=== PATIENT | male | born 1950 | race Caucasian/White ===

== ENCOUNTER → 2017-01-17 09:00 | Outpatient (CLI) | payer MEDICARE, BC ==
[2016-01-24 12:08] VITALS: BMI 33.0
[~2017-01-17 09:00] MED LIST: BAYER CHEWABLE81 MG PO; COZAAR100 MG PO; FLUTICASONE PRO16 GM NASAL; IBUPROFEN800 MG PO; OMEPRAZOLE20 M1 PO; TYLENOL W/CODEI1 TAB PO; ZOCOR40 MG PO
== END | disposition home or self-care (01) ==
LOC: D.CT 09:00
DX: R06.02 Shortness of breath (principal); R91.8 Other nonspecific abnormal finding of lung field

== ENCOUNTER → 2017-07-29 12:26 | Outpatient (CLI) | payer MEDICARE, BC ==
[2016-01-24 12:08] VITALS: BMI 33.0
[2017-07-29 13:55] LABS: BASOPHILS 1.1 % (0-2); EOSINOPHILS 3.5 % (0-7); HEMOGLOBIN 15.5 g/dL (13.5-17.5); IMMATURE GRANULOCYTES 0.5 % (0-5); LYMPHOCYTES 25.8 % (15-50); MCH 33.8 pg (26.0-34.0); MCHC 35.2 g/dL (31.0-37.0); MCV 95.9 fL (80.0-100.0); MEAN PLATELET VOLUME 8.7 fL (7.4-10.4); MONOCYTES 9.3 % (2-11); NEUTROPHILS 59.8 % (40-80); PLATELET COUNT 210 10x3/uL (130-400); RBC 4.59 10x6/uL (4.20-6.10); RDW 12.6 % (11.5-14.5); WBC 8.1 10x3/uL (4.8-10.8)
[2017-07-29 14:14] LABS: ALBUMIN 3.9 g/dL (3.4-5.0); ALKALINE PHOSPHATASE 132 U/L (46-116); ALT (SGPT) 49 U/L (10-68); BILIRUBIN - TOTAL 0.77 mg/dL (0.2-1.3); CALC OSMOLALITY 273 mosm/kg (275-300); CALCIUM 9.4 mg/dL (8.5-10.1); CARBON DIOXIDE 25.8 mmol/L (21.0-32.0); CHLORIDE - SERUM 101 mmol/L (98-107); GLUCOSE 110 mg/dL (74-106); SODIUM 136 mmol/L (136-145); UREA NITROGEN 14 mg/dL (7-18); eGFR NON AFRICAN AMERICAN 79 mL/min (90-120)
[2017-07-30 11:19] LABS: IMMUNOGLOBULIN A 279 mg/dL (61-437)
[2017-07-30 13:15] LABS: ANA REFLEX - DIRECT Negative (Negative)
== END | disposition home or self-care (01) ==
LOC: D.RT 12:26
PROVIDERS: Internal Medicine Pulmonary Disease
DX: J44.9 Chronic obstructive pulmonary disease, unspecified (principal)

== ENCOUNTER → 2017-11-18 10:17 | Outpatient (CLI) | payer MEDICARE, BC ==
[2016-01-24 12:08] VITALS: BMI 33.0
[2017-11-19 21:08] LABS: IGG SUBCLASS 1 450 mg/dL (248-810); IGG SUBCLASS 2 487 mg/dL (130-555); IGG SUBCLASS 3 11 mg/dL (15-102); IGG SUBCLASS 4 88 mg/dL (2-96); IMMUNOGLOBULIN G 985 mg/dL (700-1600)
== END | disposition home or self-care (01) ==
LOC: D.LAB 10:15
PROVIDERS: Internal Medicine Pulmonary Disease
DX: J42 Unspecified chronic bronchitis (principal)

== ENCOUNTER 2018-07-09 08:40 | Day surgery (SDC) | payer MEDICARE, BC ==
[~2018-07-09] VITALS: Ht 177.8 cm; Wt 97.7 kg
[2018-07-09 09:16] LABS: HEMATOCRIT 43.4 % (42.0-54.0); MCH 32.1 pg (26.0-34.0); MCHC 34.6 g/dL (31.0-37.0); MCV 92.9 fL (80.0-100.0); MEAN PLATELET VOLUME 9.1 fL (7.4-10.4); RBC 4.67 10x6/uL (4.20-6.10); RDW 13.7 % (11.5-14.5); WBC 7.9 10x3/uL (4.8-10.8)
[2018-07-09 09:26] LABS: ALBUMIN 3.3 g/dL (3.4-5.0); BILIRUBIN - DIRECT 0.26 mg/dL (0.00-0.30); BILIRUBIN - INDIRECT 1.06 mg/dL (0.00-1.00); BILIRUBIN - TOTAL 1.32 mg/dL (0.2-1.3); PROTEIN - SERUM 8.3 g/dL (6.4-8.2)
[2018-07-09 09:28] VITALS: BP 141/84; Ht 177.8 cm; Wt 97.7 kg
--- NOTE | 2018-07-14 06:53 | OP ---
PATIENT NAME: TOMASZ SIDDIQI JR MEDICAL RECORD: [id number] :50 [facility]ATION:[facility] [place] ADMISSION DATE: SURGEON: MUSTAPHA MONIQUE DO DATE OF OPERATION: 07/09/2018 PROCEDURE: Colonoscopy with polypectomy. INDICATIONS FOR PROCEDURE: Stool DNA based colorectal cancer screening positive testing. SCOPE: Access Information Management video pediatric colonoscope. MEDICATIONS: Propofol 700 mg IV per anesthesia. WITHDRAWAL TIME: 20 minutes. ESTIMATED BLOOD LOSS: Minimal. COMPLICATIONS: None. FINDINGS: Informed consent was given. The patient was made comfortable with the above medication. After reaching an adequate level of sedation by slow IV push, the patient was placed on his left side. A digital rectal examination was performed and was normal. The endoscope was then advanced under direct visualization through the rectum to the cecum, confirmed by the presence of the appendiceal orifice and ileocecal valve. The endoscope was slowly withdrawn and the mucosa was carefully examined. The quality of the prep was good. There were multiple polyps visualized on today's examination. Two were located in the ascending colon. They were benign appearing and sessile and ranged in size from 3-5 mm in diameter. They were both removed using a hot snare. In the transverse colon, there were four separate polyps, which were benign-appearing and sessile. They ranged in size from 3-5 mm in diameter. They were removed using hot snare. In the descending colon, there were 3 separate polyps, which were benign appearing and sessile and ranged in size from 2-4 mm in diameter. They were removed using hot forceps. In the rectum, there were 3 separate polyps, which were benign appearing and sessile and also flat. The largest of the 3 and the flattest of the 3 was removed using endoscopic mucosal resection technique with injection of a saline pillow, followed by snare polypectomy. The remaining 2 polyps were removed using a hot snare alone. Retroflexion was performed in the rectum with visualization of a normal-appearing rectal wall. There was evidence of very mild diverticulosis involving the sigmoid colon. The endoscope was withdrawn from the patient. The patient tolerated the procedure well, and there were no complications. IMPRESSION: 1. Multiple polyps as described above, removed using a combination of a hot snare, hot forceps, and EMR technique. 2. Mild diverticulosis of the sigmoid colon. PLAN AND RECOMMENDATIONS: 1. Discharge home when recovery parameters are met. 2. Follow up biopsy specimen results. 3. High-fiber diet. 4. Continue current medications. 5. Recall colonoscopy in 2-3 years for surveillance based on a personal history OPERATIVE REPORT [id number] TOMASZ SIDDIQI JR of polyps. TRANSINT:[id number] Voice Confirmation ID: [id number] DOCUMENT ID: [id number] MUSTAPHA MONIQUE DO at 0653 CC: [id number] DICTATION DATE: 07/09/18 1141 ROOF DESIGNER: 07/09/18 1325 [facility] 07/09/18 [place] [address] [place] [address]
== END 2018-07-09 12:28 | disposition home or self-care (01) ==
LOC: D.OPS 08:40
PROVIDERS: Anesthesiology; Internal Medicine Gastroenterology
DX: K63.5 Polyp of colon (principal); K57.30 Diverticulosis of large intestine without perforation or abscess without bleeding; Z01.812 Encounter for preprocedural laboratory examination

== ENCOUNTER → 2018-08-08 08:28 | Outpatient (CLI) | payer MEDICARE, BC ==
[2018-07-09 09:28] VITALS: BMI 30.9
[2018-08-09 11:10] LABS: HEPATITIS C ANTIBODY <0.1 (0.0-0.9)
== END | disposition home or self-care (01) ==
LOC: D.RT 08:00 → D.LAB 08:00 → D.RT 08:28
PROVIDERS: ATTEND Internal Medicine Pulmonary Disease
DX: J84.112 Idiopathic pulmonary fibrosis (principal)

== ENCOUNTER → 2018-09-09 10:24 | Outpatient (CLI) | payer MEDICARE, BC ==
[2018-07-09 09:28] VITALS: BMI 30.9
[2018-09-09 12:53] LABS: ALBUMIN 3.3 g/dL (3.4-5.0); BILIRUBIN - DIRECT 0.26 mg/dL (0.00-0.30); BILIRUBIN - INDIRECT 0.85 mg/dL (0.00-1.00); BILIRUBIN - TOTAL 1.11 mg/dL (0.2-1.3); PROTEIN - SERUM 7.9 g/dL (6.4-8.2)
== END | disposition home or self-care (01) ==
LOC: D.LABREF 10:24
PROVIDERS: ATTEND Internal Medicine Pulmonary Disease
DX: J84.112 Idiopathic pulmonary fibrosis (principal)

== ENCOUNTER → 2018-10-01 19:05 | Outpatient (CLI) | payer MEDICARE, BC ==
[2018-07-09 09:28] VITALS: BMI 30.9
[2018-10-01 21:01] LABS: ALBUMIN 3.6 g/dL (3.4-5.0); BILIRUBIN - DIRECT 0.25 mg/dL (0.00-0.30); BILIRUBIN - INDIRECT 1.01 mg/dL (0.00-1.00); BILIRUBIN - TOTAL 1.26 mg/dL (0.2-1.3); PROTEIN - SERUM 8.2 g/dL (6.4-8.2)
== END | disposition home or self-care (01) ==
LOC: D.LABREF 19:05
PROVIDERS: ATTEND Internal Medicine Pulmonary Disease
DX: J84.112 Idiopathic pulmonary fibrosis (principal)

== ENCOUNTER → 2019-02-17 09:46 | Outpatient (CLI) | payer MEDICARE, BC ==
[2018-07-09 09:28] VITALS: BMI 30.9
--- NOTE | 2019-02-20 12:52 | EC ---
PATIENT:TOMASZ SIDDIQI JR DATE OF SERVICE: 02/17/19 SEX: M MEDICAL RECORD: [id number] DATE OF : [birth year] [facility] AGE OF PATIENT: 69 ADMISSION DATE: 02/17/19 REFERRING PHYSICIAN: INTERPRETING PHYSICIAN: MONICA ZHANG MD ECHOCARDIOGRAM REPORT ECHO CHARGES 4 ECHO COMPLETE Date: 02/17/19 CLINICAL DIAGNOSIS: H/O HTN/CAD ECHOCARDIOGRAPHIC MEASUREMENTS (adult normal given) AC root (d.<3.7cm) 3.9 cm LV Septum d (<1.2 cm> 1.1 cm Valve Excursion 2.5 cm LV Septum (systole) 1.4 cm Left Atria (s.<4.0cm> 4.6 cm LVPW d(<1.2cm) 1.1 cm RV (d.<2.3cm) 2.9 cm LVPW (sytole) 1.6 cm LV diastole(<5.6CM) 5.8 cm MV E-F(>70mm/sec) cm LV systole 3.8 cm LVOT Diameter 2.2 cm MV exc.(>10mm) cm Est.ejection fraction (50-75%) % DOPPLER: LVIT cm/sec A 82.0 cm/sec E 52.0 cm/sec LA cm/sec RVSP 29.3 mmHg LVOT 93.0 cm/sec AOP1/2T m/s Asc. Ao 133 cm/sec RVOT 61.0 cm/sec RA cm/sec PA 83.0 cm/sec AV Gradient Peak 7.1 mmHg AV Mean 3.5 mmHg AV Area 2.6 cm MV Gradient Peak 4.7 mmHg MV Mean 1.3 mmHg MV Area cm COMMENTS: OP - HC Cdl B Driver: 1 SHIV NOE Cotton Puller: 3 Dr. Pinzon TAPE# PACS Pericardial Effusion N DATE OF SERVICE: Adequate 2-D echo, color-flow and spectral Doppler, and M-mode. No LVH. LV internal dimensions are normal. Wall motion is normal. EF is greater than or equal to 55%. Aortic valve is tricuspid. No evidence of stenosis by Doppler interrogation. Left atrium is mildly dilated at 4.6 cm. Mitral valve shows no prolapse. Ubeni-rw-fzof MR. Right-sided chambers are grossly normal. Mild TR. ECHOCARDIOGRAM REPORT [id number] TOMASZ SIDDIQI TRANSINT:[id number] Voice Confirmation ID: [id number] DOCUMENT ID: [id number] MONICA ZHANG MD at 1252 CC: [id number] DICTATION DATE: 02/19/19 1349 ANCILLARY SERVICES MANAGER THERAPY: 02/19/19 1513 [facility] CLI 02/17/19 [place] [id number] [place] [id number]
== END | disposition home or self-care (01) ==
LOC: D.HCCECHO 09:46 → D.HCCARDIO 10:00
PROVIDERS: ATTEND Internal Medicine Interventional Cardiology
DX: J98.4 Other disorders of lung (principal); J84.112 Idiopathic pulmonary fibrosis

== ENCOUNTER → 2019-04-28 11:02 | Outpatient (CLI) | payer MEDICARE, BC ==
[2018-07-09 09:28] VITALS: BMI 30.9
[2019-04-28 11:54] LABS: ALBUMIN 3.3 g/dL (3.4-5.0); BILIRUBIN - DIRECT 0.24 mg/dL (0.00-0.30); BILIRUBIN - INDIRECT 0.63 mg/dL (0.00-1.00); BILIRUBIN - TOTAL 0.87 mg/dL (0.2-1.3); PROTEIN - SERUM 7.4 g/dL (6.4-8.2)
== END | disposition home or self-care (01) ==
LOC: D.LAB 01-19 13:00 → D.RT 01-19 13:00 → D.LAB 01-19 14:00 → D.RT 01-28 11:00 → D.LAB 11:02
PROVIDERS: ATTEND Internal Medicine Pulmonary Disease
DX: J98.4 Other disorders of lung (principal); J84.112 Idiopathic pulmonary fibrosis

== ENCOUNTER → 2019-06-24 09:36 | Outpatient (CLI) | payer MEDICARE, BC ==
[2018-07-09 09:28] VITALS: BMI 30.9
[2019-06-24 10:02] LABS: BASOPHILS 0.2 % (0-2); EOSINOPHILS 1.6 % (0-7); HEMATOCRIT 42.1 % (42.0-54.0); HEMOGLOBIN 14.4 g/dL (13.5-17.5); IMMATURE GRANULOCYTES 0.4 % (0-5); MCH 34.4 pg (26.0-34.0); MCHC 34.2 g/dL (31.0-37.0); MCV 100.7 fL (80.0-100.0); MEAN PLATELET VOLUME 8.8 fL (7.4-10.4); MONOCYTES 7.6 % (2-11); NEUTROPHILS 80.2 % (40-80); RBC 4.18 10x6/uL (4.20-6.10); RDW 12.4 % (11.5-14.5); WBC 16.5 10x3/uL (4.8-10.8)
[2019-06-24 10:08] LABS: PLATELET COUNT 305 10x3/uL (130-400)
[2019-06-24 10:17] LABS: ALBUMIN 2.8 g/dL (3.4-5.0); BILIRUBIN - DIRECT 0.14 mg/dL (0.00-0.30); BILIRUBIN - INDIRECT 0.34 mg/dL (0.00-1.00); BILIRUBIN - TOTAL 0.48 mg/dL (0.2-1.3); PROTEIN - SERUM 8.4 g/dL (6.4-8.2)
== END | disposition home or self-care (01) ==
LOC: D.CT 06-23 10:00 → D.LAB 06-23 10:30 → D.CT 09:36
PROVIDERS: ATTEND Internal Medicine Pulmonary Disease
DX: J84.112 Idiopathic pulmonary fibrosis (principal)

== ENCOUNTER 2019-07-07 07:24 | Inpatient (IN) | payer MEDICARE, BC ==
[~2019-07-07] VITALS: Ht 177.8 cm; Wt 74.6 kg
--- NOTE | ~2019-07-07 | HEMODYNAMI ---
PATIENT:TOMASZ SIDDIQI JR MEDICAL RECORD: [id number] : 50 LOCATION:[facility] D.2211 ADMISSION DATE: 07/07/19 Generatedon:07/09/20199:39 Patient name: TOMASZ SIDDIQI Patient #: [id number] SSN: : 1950 Date of study: 07/09/2019 Page: Of Hemodynamic Procedure Report Patient Data Patient Demographics First Name: TOMASZ Gender: Male Last Name: DEVANG Suffix: [facility] Initial: RONA : 1950 Patient #: [id number] Age: 69 year(s) Race: Additional ID: [id number] Contact details [address]: [address] [place] [address] [employer] State: [place] City: [place] Zip code: [address] Past Medical History Allergies: No known allergies Admission Admission Data Admission Date: 07/07/2019 Admission Time: 7:46 Room #: .2211 Height (in.): 60 BSA: 1.72 (m2) Height (cm.): 152.4 BMI: 32.22 (kg/m2) Weight (lbs.): 165 Weight (kg.): 74.84 Procedure Procedure Types Cath Procedure Peripheral Cath Diagnostic Procedure Driver Supervisor Peripheral Procedures Miscellaneous Chest Tube Placement Procedure Description Procedure Date Procedure Date: 07/09/2019 Procedure Start Time: 9:24 Procedure Staff Name Function Mckenzie Orourke RT Home Aide Cecile Birch RN Nurse Annetta Ordonez RN Nurse Jai Clark RT Scrub Humberto Zendejas MD Performing Physician Procedure Data Cath Procedure Fluoroscopy Diagnostic fluoroscopy Total fluoroscopy Time: 0.4 time: 0.4 min min Diagnostic fluoroscopy Total fluoroscopy dose: 5 dose: 5 mGy mGy Procedure Medications Medication Administration Route Dosage Fentanyl I.V. 100 mcg Hemodynamics Rest BSA: 1.72 (m2) O2 Consumption: Estimated: 206.61 (ml/min) O2 Consumption indexed : Estimated:120.12 (ml/min/m) Heart Rate: 81 (bpm) Snapshots Pre Cath Intra NCS Post Cath Vital Signs Time Heart Resp SPO2 etCO2 NIBP (mmHg) Rhythm Pain Sedation Rate (ipm) (%) (mmHg) Status Level (bpm) 9:13:04 91 19 94 0 No Cuff NSR 0 (11) 10(A) , No pain 9:18:03 81 26 97 18.5 Measuring NSR 0 (11) 10(A) , No pain 9:18:21 79 25 97 18.5 159/84(119) NSR 0 (11) 10(A) , No pain 9:22:46 78 32 98 14.8 153/69(107) NSR 0 (11) 10(A) , No pain 9:27:03 82 26 97 23 161/86(119) NSR 0 (11) 10(A) , No pain 9:31:24 82 24 94 13.3 168/89(129) NSR 0 (11) 10(A) , No pain 9:35:46 84 15 97 13.3 155/100(128) NSR 0 (11) 10(A) , No pain Medications Time Medication Route Dose Verified Delivered Reason Notes Effectivenes s by by 9:31:21 Fentanyl I.V. 100 [facility]umberto [facility] Cristiana Ordonez RN sedation MD Procedure Log Time Note 9:05:52 Patient Height : 60 inches 9:06:03 Patient Weight : 165 lbs 9:07:15 Time tracking: Regular hours (M-F 7:00 - 5:00) 9:07:39 Plan of Care:Hemodynamics will remain stable., Cardiac rhythm will remain stable., Comfort level will be maintained., Respiratory function will remain adequate., Patient/ family verbilizes understanding of procedure., Procedure tolerated without complication., Recovers from procedure without complications.. 9:07:49 Patient received from Med/Surg to IR Alert and oriented. Tansferred to table in Supine position. 9:07:56 ECG and BP/O2 sat monitors applied to patient. 9:08:15 Baseline sample Acquired. 9:08:22 Full Disclosure recording started 9:10:20 9:10:26 H&P Date Dictated: 07/09/2019 Within 30 days and on chart.. 9:10:28 Pre-procedure instructions explained to patient. 9:10:29 Pre-op teaching completed and patient verbalized understanding. 9:10:31 Family in waiting room. 9:10:35 Patient NPO since Midnight. 9:10:43 Patient allergic to No known allergies 9:10:50 Is patient on blood thinner?No 9:10:54 Patient diabetic? No. 9:10:55 9:10:56 ----Pre-sedation anethsthesia assessment.---- 9:10:59 Previous problem with sedation/anesthesia? No ? 9:11:02 Snore? Yes 9:11:04 Sleep apnea? No 9:11:07 Deviated septum? No 9:11:09 Opens mouth fully? Yes 9:11:14 Sticks out tongue? Yes 9:11:24 Airway obstruction? Yes COPD 9:11:32 Dentures? No ? 9:11:34 9:11:51 IV patent on arrival in left hand with D5/.45%NaCl at KVO. 9:12:02 Left chest area was prepped with chlora-prep and draped in sterile fashion 9:12:05 9:12:13 Vital chart was started 9:12:17 9:12:36 Use device set IR Diagnostic 9:12:39 Tegaderm 4 x 4 ([id number]) opened to sterile field. 9:12:40 Sterile Angiographic Pack opened to sterile field. 9:12:41 Bag Decanter () opened to sterile field. 9:12:51 9:16:40 STOPCOCK 3-Way Large Bore ([id number]) opened to sterile field. 9:17:18 [employer] Surgical Billiary 18fr. Drainage Cath ([id number]) opened to sterile field. 9:20:22 Physician arrived 9:20:23 --------ALL STOP TIME OUT------ 9:20:24 Final Timeout: patient, procedure, and site verified with staff and physician. All members of the team are in agreement. 9:22:35 Fire Safety Assessment: A--An alcohol-based skin anteseptic being used preoperatively., C--Open oxygen or nitrous oxide is being used. 9:23:40 Procedure started. 9:24:44 Local anesthetic to Chest area with Lidocaine 1% by Humberto Zendejas MD.INITIAL ACCESS ONLY 9:25:09 GABY .035 15cm wire ([id number]) opened to sterile field. 9:31:21 Fentanyl 100 mcg I.V. was administered by Annetta Ordonez RN; for sedation; Verbal order read back and verified. 9:35:57 SUTURE SILK 2-0 BLK BR FS 18 I opened to sterile field. 9:36:26 18 FR CHEST TUBE SUTURED IN PLACE 9:36:35 Procedure ended.(Physican Out) 9:37:27 Fluoroscopy time 00.40 minutes. 9:37:32 Flurop Dose total: 5 9:37:32 Fluoroscopy dose: 5 mGy 9:37:35 Procedure and supply charges have been captured, reviewed, submitted and are correct. 9:38:35 Report given to Med/Surg. 9:39:36 Vital chart was stopped Device Usage Item Name Manufacture Quantity Catalog Hospital Part Current Minimal Lot# / Number Charge Number Stock Stock Serial# Code Tegaderm 4 x 3M 1 [id number] 5 4 (1626W) Sterile Cardinal 1 [id number] [id number] 5 Angiographic Health Pack Bag Decanter Microtek 1 2001S 262593 46709 367378 5 () [employer] [facility] 1 [id number] 689845 2937 257615 5 [id number] 3-Way Large Bore (G78095) Cook [facility] 1 D04705 322118 5217940 5 Billiary 18fr. Drainage Cath (N13205) GABY .035 [facility] 1 E15937 043279 382360 5 [id number] 15cm wire (J74485) SUTURE SILK Ethicon 1 685H 069746 236527 5 2-0 BLK BR FS 18 I Signature Audit [place] Stage Time Signature Unsigned Intra-Procedure 07/09/2019 Mckenzie Orourke 9:39:34 AM RT(R) [facility] [address] [place] [address]
[2019-07-07] MEDS ORDERED: OFEV PO (07:41)
[2019-07-07] MEDS ORDERED: IPRAT-ALBUT 0.5-3 ML UPD (07:42)
[2019-07-07] MEDS ORDERED: [UNRECOGNIZED DRUG - OTHER] (07:43)
[2019-07-07] MEDS ORDERED: ALBUTEROL SULF8.5 GM INH (07:43)
[2019-07-07] MEDS ORDERED: ZYRTEC10 MG PO (07:44)
[2019-07-07] MEDS ORDERED: SINGULAIR10 MG PO (07:44)
[2019-07-07] MEDS ORDERED: AZELASTINE137 MCG/0. NASAL (07:44)
[2019-07-07] MEDS ORDERED: POLY HIST FORTE PO (07:45)
[2019-07-07] MEDS ORDERED: MIRAPEX0.25 MG PO (07:46)
[2019-07-07] MEDS ORDERED: MUCINEX DM ER1 EAC1 PO (07:46)
[2019-07-07] MEDS ORDERED: IBUPROFEN800 MG PO (07:46)
[2019-07-07] MEDS ORDERED: IMODIUM2 MG PO (07:47)
[2019-07-07 07:57] LABS: CALC OSMOLALITY 273 mosm/kg (275-300); CALCIUM 8.9 mg/dL (8.5-10.1); CHLORIDE - SERUM 97 mmol/L (98-107); CREATININE - SERUM 0.7 mg/dL (0.6-1.3); POTASSIUM - SERUM 3.9 mmol/L (3.5-5.1); SODIUM 132 mmol/L (136-145); UREA NITROGEN 17 mg/dL (7-18); eGFR NON AFRICAN AMERICAN > 90 mL/min (90-120)
[2019-07-07 08:02] LABS: GLUCOSE 220 mg/dL (74-106)
[2019-07-07 08:08] LABS: APTT 25.8 SECONDS (22.8-39.4); INR 0.98 (0.85-1.17); PROTIME 12.9 SECONDS (11.6-15.0)
[2019-07-07 08:12] LABS: BASOPHILS 0.3 % (0-2); EOSINOPHILS 2.6 % (0-7); HEMATOCRIT 42.4 % (42.0-54.0); HEMOGLOBIN 14.8 g/dL (13.5-17.5); IMMATURE GRANULOCYTES 0.9 % (0-5); MCH 34.3 pg (26.0-34.0); MCHC 34.9 g/dL (31.0-37.0); MCV 98.4 fL (80.0-100.0); MEAN PLATELET VOLUME 9.7 fL (7.4-10.4); MONOCYTES 7.1 % (2-11); NEUTROPHILS 66.1 % (40-80); PLATELET COUNT 292 10x3/uL (130-400); RBC 4.31 10x6/uL (4.20-6.10); RDW 12.9 % (11.5-14.5); WBC 15.1 10x3/uL (4.8-10.8)
[2019-07-07 08:14] LABS: ALBUMIN 2.8 g/dL (3.4-5.0); ALKALINE PHOSPHATASE 88 U/L (30-120); ALT (SGPT) 84 U/L (10-68); BILIRUBIN - TOTAL 0.98 mg/dL (0.2-1.3); CKMB 0.7 U/L (0.0-3.6); CREATINE KINASE 51 UL (21-232); PRO BNP 64 pg/mL (0-125); PROTEIN - SERUM 7.5 g/dL (6.4-8.2)
[2019-07-07 08:15] LABS: TROPONIN-I < 0.017 ng/mL (0.000-0.060)
--- NOTE | 2019-07-07 09:23 | NUR ---
0744 patient to ir via stretcher for chest tube placement.
--- NOTE | 2019-07-07 09:25 | NUR ---
0832 PATIENT RETURNED FROM IR, 14FR CHEST TUBE LEFT MID AXE. TO WATER SEAL WITH 20CM WALL SUCTION. RESTING WITH NO COMPLAINTS 3LTRS 02 N/C SAT 97 TO 98 PERCENT.
--- NOTE | 2019-07-07 09:40 | NUR ---
SHERIN COMPLETE 0972.
[2019-07-07 12:28] VITALS: BP 152/78
[2019-07-07 14:30] LABS: CREATINE KINASE 93 UL (21-232)
[2019-07-07 14:32] LABS: TROPONIN-I < 0.017 ng/mL (0.000-0.060)
[2019-07-07 14:44] VITALS: BP 158/78; BMI 23.7
[2019-07-07 17:14] VITALS: BP 135/77
[2019-07-07 19:16] VITALS: BP 130/68
[2019-07-07 20:10] LABS: CKMB 1.1 U/L (0.0-3.6); CREATINE KINASE 88 UL (21-232)
[2019-07-07 20:15] LABS: TROPONIN-I < 0.017 ng/mL (0.000-0.060)
[2019-07-08 02:30] LABS: CKMB 0.8 U/L (0.0-3.6); CREATINE KINASE 63 UL (21-232); TROPONIN-I < 0.017 ng/mL (0.000-0.060)
--- NOTE | 2019-07-08 02:33 | NUR ---
PATIENT IN BED WITH NO NEEDS AT THIS TIME. HE IS ALERT AND ORENTED X4 ABLE TO VOICE NEEDS AND WANTS TO STAFF. TELEMETRY IN PLACE IV TO LEFT FA O2 AT 3LETERS VIA N/C REFUSED SCD'S CHEST TUB IN PLACE TO LEFT UPPER BACK WITH BLOODY DRANAGE TO SYSTEM. WATER AND CALL LIGHT IN REACH. PAIN CONTROLED WITH PRN TYL. #3 PER ORDERS.
[2019-07-08 04:00] VITALS: BP 144/81
[2019-07-08 05:51] LABS: BASOPHILS 0 % (0-2); EOSINOPHILS 0.1 % (0-7); HEMATOCRIT 40.3 % (42.0-54.0); HEMOGLOBIN 13.9 g/dL (13.5-17.5); IMMATURE GRANULOCYTES 0.6 % (0-5); LYMPHOCYTES 7.1 % (15-50); MCH 34.1 pg (26.0-34.0); MCHC 34.5 g/dL (31.0-37.0); MCV 98.8 fL (80.0-100.0); MEAN PLATELET VOLUME 9.3 fL (7.4-10.4); MONOCYTES 6.5 % (2-11); NEUTROPHILS 85.7 % (40-80); PLATELET COUNT 311 10x3/uL (130-400); RBC 4.08 10x6/uL (4.20-6.10); RDW 13.2 % (11.5-14.5); WBC 8.4 10x3/uL (4.8-10.8)
[2019-07-08 06:08] LABS: ALBUMIN 2.6 g/dL (3.4-5.0); ALKALINE PHOSPHATASE 79 U/L (30-120); ALT (SGPT) 70 U/L (10-68); BILIRUBIN - TOTAL 1.16 mg/dL (0.2-1.3); CALCIUM 8.5 mg/dL (8.5-10.1); CHLORIDE - SERUM 99 mmol/L (98-107); CREATININE - SERUM 0.6 mg/dL (0.6-1.3); POTASSIUM - SERUM 4.3 mmol/L (3.5-5.1); PROTEIN - SERUM 7.2 g/dL (6.4-8.2); SODIUM 134 mmol/L (136-145); eGFR NON AFRICAN AMERICAN > 90 mL/min (90-120)
[2019-07-08 06:14] LABS: CALC OSMOLALITY 269 mosm/kg (275-300); GLUCOSE 140 mg/dL (74-106); UREA NITROGEN 12 mg/dL (7-18)
[2019-07-08 08:27] VITALS: BP 127/79
[2019-07-08 10:22] VITALS: BMI 23.6
[2019-07-08 12:19] VITALS: BP 122/75
[2019-07-08 16:38] VITALS: BP 128/78
[2019-07-08 20:00] VITALS: BP 127/70
--- NOTE | 2019-07-08 20:00 | NUR ---
ALERT RESTING IN BED, CHEST TUBE INTACT TO LEFT SIDE, TO INTERMITENT SUCTION, DENIES PAIN OR NEEDS AT THIS TIME, SEE SHIFT ASSESSMENT, CALL LIGHT IN REACH
[2019-07-09] VITALS: BP 130/65
[2019-07-09 04:00] VITALS: BP 142/87
[2019-07-09 07:17] LABS: BASOPHILS 0 % (0-2); EOSINOPHILS 0.1 % (0-7); HEMATOCRIT 38.8 % (42.0-54.0); HEMOGLOBIN 13.2 g/dL (13.5-17.5); IMMATURE GRANULOCYTES 0.6 % (0-5); LYMPHOCYTES 5.7 % (15-50); MEAN PLATELET VOLUME 9.7 fL (7.4-10.4); MONOCYTES 9.3 % (2-11); NEUTROPHILS 84.3 % (40-80); PLATELET COUNT 284 10x3/uL (130-400); RBC 3.88 10x6/uL (4.20-6.10); RDW 13.5 % (11.5-14.5)
[2019-07-09 07:34] LABS: WBC 16.9 10x3/uL (4.8-10.8)
[2019-07-09 07:49] LABS: ALBUMIN 2.6 g/dL (3.4-5.0); ALKALINE PHOSPHATASE 83 U/L (30-120); ALT (SGPT) 69 U/L (10-68); BILIRUBIN - TOTAL 0.59 mg/dL (0.2-1.3); CALCIUM 8.9 mg/dL (8.5-10.1); CARBON DIOXIDE 29.1 mmol/L (21.0-32.0); CHLORIDE - SERUM 100 mmol/L (98-107); CREATININE - SERUM 0.5 mg/dL (0.6-1.3); GLUCOSE 113 mg/dL (74-106); POTASSIUM - SERUM 3.9 mmol/L (3.5-5.1); SODIUM 135 mmol/L (136-145); eGFR NON AFRICAN AMERICAN > 90 mL/min (90-120)
[2019-07-09 07:50] LABS: CALC OSMOLALITY 272 mosm/kg (275-300); UREA NITROGEN 17 mg/dL (7-18)
--- NOTE | 2019-07-09 08:55 | NUR ---
PT RESTING IN BED WITH HOB UP. RESP SHALLOW. O2 @ 3L NC IN PLACE. CHEST TUBE INTACT TO LEFT BACK, TO LOW INTERMITTENT SUCTIONING. SALINE LOC TO LEFT FOREARM. SITE WITHOUT REDNESS OR EDEMA. PT BEING TAKEN FOR NEW CHEST TUBE PLACEMENT AT THIS TIME.
[2019-07-09 09:48] LABS: INR 0.96 (0.85-1.17); PROTIME 12.7 SECONDS (11.6-15.0)
--- NOTE | 2019-07-09 11:57 | MORECARE ---
CASE MANAGEMENT DISCHARGE SUMMARY PATIENT: TOMASZ SIDDIQI UNIT: [id number] ADM DATE: 07/07/19 AGE: 69 : 50 SEX: M ROOM/BED: D.2211 AUTHOR: KERI PHELAN PHYSICIAN: REFERRING PHYSICIAN: PAUL CALLES MD DATE OF SERVICE: 07/09/19 Discharge Plan Patient Name: TOMASZ SIDDIQI Facility: [facility]:[place] : 1950 Planned Disposition: Home Anticipated Discharge Date: Discharge Date: Expected LOS: Initial Reviewer: [email or web address] Initial Review Date: 07/07/2019 Generated: 07/09/19 12:56 pm Comments DCP- Discharge Planning Updated by [email or web address]: Graciela Eugene on 07/09/19 10:[address] Patient Name: TOMASZ SIDDIQI Admission Status: Elective Accout number: [id number] Admission Date: 07-07-2019 : 1950 Admission Diagnosis: Attending: PAUL CALIX Current LOS: 2 Anticipated DC Date: Planned Disposition: Home Primary Insurance: MEDICARE A & B Discharge Planning Comments: CM met with patient to complete initial dc planning assessment. CM educated patient on the CM role and verbal consent given by patient to complete assessment. Patient lives at home with his spouse where he is independent with his care. At discharge patient plans to return home and feels this is a safe discharge. CM discussed availability of home health, rehab services, and medical equipment. He has a concentrator at home and nebulizer along with portable O2. All from [facility]. He wears O2 at night and PRN. He did ask about a portable concentrator where he didn't have to carry his portable tanks. I will call [facility] and see if that would be an option for him. Patient denied known discharge needs at this time. CM will continue to follow and will assist as needed with dc plans/needs. Dry Clipper Tender: Graciela Eugene DCPIA - Discharge Planning Initial Assessment Updated by [email or web address]: Graciela Eugene on 07/09/19 11:53 am * Is the patient Alert and Oriented? Yes * How many steps to enter\exit or inside your home? * PCP SHOSHANA * [facility] * Preadmission Environment Home with Family * ADLs Independent * Equipment Nebulizer Other Oxygen * Other Equipment CONCENTRATOR * List name and contact numbers for known caregivers / representatives who currently or will assist patient after discharge: ARIEL () [phone] * Verbal permission to speak to the caregivers and representatives has been obtained from the patient. N/A * Community resources currently utilized None * Additional services required to return to the preadmission environment? No * Can the patient safely return to the preadmission environment? Yes * Has this patient been hospitalized within the prior 30 days at any hospital? No Coverage Notice Reviewer: [id number] Sahara Eugene Notice Issued Date-Time: 07/09/2019 9:30 Notice Type: Patient Choice Letter Notice Delivered To: Patient Relationship to Patient: Isotope Technologist Name: Delivery Method: - Cristal Days: Prior Verbal Notification: Recipient Understood Notice: Recipient Signature: Med Rec Note Co-signed by Attending: Coverage Notice Comment: Patient Name: TOMASZ SIDDIQI Page [phone] at 1157 All edits/amendments must be made on the electronic document DICTATION DATE: 07/09/19 1156 AIRCRAFT ORDNANCE TECHNICIAN: JAQUAN 07/09/19 1156 RPT#: [id number] DC DATE: STATUS: ADM IN [facility] [address] [place] [address] END OF REPORT
[2019-07-09 13:39] VITALS: BP 137/79
[2019-07-09 13:42] VITALS: BP 127/70
[2019-07-09 19:30] VITALS: BP 129/73
--- NOTE | 2019-07-09 19:45 | NUR ---
IN BED WITH FAMILY AT BEDSIDE. ABLE TO VOICE ALL NEEDS. STATES WITH HIS EVENING MEDICINES HE WOULD LIKE PAIN PILL AND POSSIBLY COUGH MEDS, TOLD HIM TO LET ME KNOW WHEN HE WAS READY FOR THEM. HE AGREED. WILL NOTE ANY CHANGE.
[2019-07-10 00:30] VITALS: BP 157/84
--- NOTE | 2019-07-10 03:00 | NUR ---
I have reviewed this patient and I concur with the Shift Assessment completed by the Licensed Practical Nurse today this shift.
[2019-07-10 05:24] LABS: BASOPHILS 0 % (0-2); EOSINOPHILS 0.1 % (0-7); HEMOGLOBIN 13.7 g/dL (13.5-17.5); IMMATURE GRANULOCYTES 0.5 % (0-5); LYMPHOCYTES 4.7 % (15-50); MCH 34.3 pg (26.0-34.0); MCHC 34.3 g/dL (31.0-37.0); MEAN PLATELET VOLUME 9.5 fL (7.4-10.4); MONOCYTES 9.6 % (2-11); NEUTROPHILS 85.1 % (40-80); PLATELET COUNT 284 10x3/uL (130-400); RDW 13.5 % (11.5-14.5); WBC 13.1 10x3/uL (4.8-10.8)
[2019-07-10 05:30] VITALS: BP 152/88
[2019-07-10 05:44] LABS: ALBUMIN 2.4 g/dL (3.4-5.0); ALKALINE PHOSPHATASE 85 U/L (30-120); BILIRUBIN - TOTAL 0.75 mg/dL (0.2-1.3); CALC OSMOLALITY 275 mosm/kg (275-300); CALCIUM 8.9 mg/dL (8.5-10.1); CARBON DIOXIDE 29.9 mmol/L (21.0-32.0); CHLORIDE - SERUM 101 mmol/L (98-107); CREATININE - SERUM 0.6 mg/dL (0.6-1.3); GLUCOSE 145 mg/dL (74-106); MAGNESIUM - SERUM 1.8 mg/dL (1.8-2.4); PHOSPHOROUS 2.8 mg/dL (2.5-4.9); POTASSIUM - SERUM 4.1 mmol/L (3.5-5.1); PROTEIN - SERUM 7.1 g/dL (6.4-8.2); SODIUM 136 mmol/L (136-145); UREA NITROGEN 16 mg/dL (7-18); eGFR NON AFRICAN AMERICAN > 90 mL/min (90-120)
[2019-07-10 05:47] LABS: ALT (SGPT) 92 U/L (10-68)
--- NOTE | 2019-07-10 09:00 | NUR ---
ALERT AND ORIENTED X4 WITH CHEST TUBE INTACT TO LEFT MIDLINE OF CHEST WITH SERSANGUNOUS DRAINAGE NOTED. UP ADLIB WITH ASSIST. HRRR AND NO PERIPHERAL EDEMA NOTED. ENCOURAGED TO USE CALL LIGHT FOR ASSIST.
[2019-07-10 09:39] VITALS: BP 149/90
[2019-07-10 10:09] VITALS: Ht 177.8 cm; Wt 74.6 kg
[2019-07-10 13:20] VITALS: BP 113/92
--- NOTE | 2019-07-10 13:26 | NUR ---
NUTRITION F/U PT TOLERATING REG DIET. REPORTS GOOD PO INTAKE RECENT MEALS. SPOUSE STATES HIS APPETITE IS MUCH IMPROVED. WILL CONTINUE TO HONOR FOOD PREFERENCES, MONITOR PT PO INTAKE. RD FOLLOWING
[2019-07-10 16:28] VITALS: BP 126/80
[2019-07-10 20:00] VITALS: BP 132/81
--- NOTE | 2019-07-10 20:50 | NUR ---
SITTING UP IN BED. RESP IRREG, SOB WITH MIN EXERTION. O2 @ 3LNC. LEFT CHEST TUBE TO SUCTION WITH SEROUS FLUID IN CHAMBER. REPORTS PROD COUGH WITH CLEAR SPUTUM. BBS COARSE BILAT. LT UPPER ARM MIDLINE IS SALINE LOCKED. DENIES PAIN. NO DISTRESS. AMBULATORY CL IN REACH.
[2019-07-11] VITALS (15 sets, daily range): BP systolic 119–146; BP diastolic 72–95
--- NOTE | 2019-07-11 00:10 | NUR ---
MEDICATED WITH PHEN WITH CODEINE COUGH SYRUP THAT IS SCHEDULED. REQUESTS TYLENOL WITH CODEINE. EXPLAINED TO PT THAT HE WOULD NEED TO WAIT AN HOUR FOR THE PAIN MED WITH CODEINE. HE VERBALIZED UNDERSTANDING.
--- NOTE | 2019-07-11 03:41 | NUR ---
HAS RESTED WELL SO FAR THIS SHIFT. LYING IN BED WITH EYES CLOSED. RESP SNORING. CL IN REACH. NO DISTRESS.
--- NOTE | 2019-07-11 04:12 | NUR ---
MEDICATED WITH TYLENOL #3 FOR C/O PAIN IN CHEST TUBE AREA. CL IN REACH.
--- NOTE | 2019-07-11 06:31 | NUR ---
INSTRUCTED PT ON COLLECTION OF URINE. HE VERBALIZED UNDERSTANDING.
[2019-07-11 06:39] LABS: BASOPHILS 0 % (0-2); EOSINOPHILS 0 % (0-7); HEMATOCRIT 40.8 % (42.0-54.0); HEMOGLOBIN 13.8 g/dL (13.5-17.5); IMMATURE GRANULOCYTES 0.4 % (0-5); LYMPHOCYTES 4.4 % (15-50); MCH 34.1 pg (26.0-34.0); MCHC 33.8 g/dL (31.0-37.0); MCV 100.7 fL (80.0-100.0); MEAN PLATELET VOLUME 9.6 fL (7.4-10.4); MONOCYTES 10.1 % (2-11); NEUTROPHILS 85.1 % (40-80); PLATELET COUNT 307 10x3/uL (130-400); RBC 4.05 10x6/uL (4.20-6.10); RDW 13.7 % (11.5-14.5); WBC 10.3 10x3/uL (4.8-10.8)
[2019-07-11 06:45] LABS: APTT 29.8 SECONDS (22.8-39.4); INR 0.96 (0.85-1.17); PROTIME 12.7 SECONDS (11.6-15.0)
[2019-07-11 07:51] LABS: ALBUMIN 2.7 g/dL (3.4-5.0); ALKALINE PHOSPHATASE 95 U/L (30-120); BILIRUBIN - TOTAL 0.75 mg/dL (0.2-1.3); CALC OSMOLALITY 269 mosm/kg (275-300); CALCIUM 8.9 mg/dL (8.5-10.1); CARBON DIOXIDE 31.1 mmol/L (21.0-32.0); CHLORIDE - SERUM 99 mmol/L (98-107); CREATININE - SERUM 0.6 mg/dL (0.6-1.3); GLUCOSE 147 mg/dL (74-106); MAGNESIUM - SERUM 2.2 mg/dL (1.8-2.4); POTASSIUM - SERUM 4.6 mmol/L (3.5-5.1); PROTEIN - SERUM 6.8 g/dL (6.4-8.2); SODIUM 133 mmol/L (136-145); UREA NITROGEN 15 mg/dL (7-18); eGFR NON AFRICAN AMERICAN > 90 mL/min (90-120)
[2019-07-11 07:52] LABS: ALT (SGPT) 116 U/L (10-68); PHOSPHOROUS 3.6 mg/dL (2.5-4.9)
--- NOTE | 2019-07-11 09:00 | NUR ---
ALERT AND ORIENTED X4 CHEST TUBE INTACT WITH LOW CONTINUUS SUCTION WITH BUBBLES NOTED. NO RESPL DISTRESS NOTED WITH O2 3L N/C. BREATH SOUNDS DIMINISHED X4. HRRR AND NO PERIPHERAL EDEMA.
[2019-07-11 11:31] LABS: BILIRUBIN NEGATIVE (NEGATIVE); GLUCOSE NEGATIVE (NEGATIVE); KETONE NEGATIVE (NEGATIVE); NITRITE NEGATIVE (NEGATIVE); UROBILINOGEN NORMAL (NORMAL)
--- NOTE | 2019-07-11 11:36 | NUR ---
REPORT CALLED TO CVICU AND TRANSFERING TO RM 2. STABLE AT TIME OF DEPARTURE WITH NO DISTRESS NOTED WITH CHEST TUBE INTACT.
--- NOTE | 2019-07-11 12:13 | NUR ---
REC'D PT TO CVICU. VSS, AFEBRILE. FAMILY HERE. ALL MONITORING EQUIPMENT ATTACHED AND ALARMS SET. CALL LIGHT IN REACH.
--- NOTE | 2019-07-11 14:06 | NUR ---
1215-RECIEVED PER FLOW SHEET-L LATERAL CHEST TUBE PATENT-NOTED 20CM SUCTION WITH AIR LEAK -NO DRAINAGE IN TUBING-PLACED TO MONITOR SR O2 AT 4L-AND CHANGED TUBING TO 14FT -SUCTION TUBING CHANGED TO 24 FT-STRESSED TO PT OXYGEN TO STAY ON WHEN ABULATING TO RESTROOM AND SUCTION TO STAY ATTACHED TO CHEST TUBE CONTAINER- AND PT BOTH NODDED IN AGREEMENT-ENCOURAGED TO CALL STAFF FOR ASSIST WITH AMBULATION-AIR OVERLAY REMAINS ON BED-DIRECTED BY DR EASTON FOR BRP ONLY
--- NOTE | 2019-07-11 16:02 | NUR ---
AMBULATED TO REST ROOM-WITH O2 AND SUCTION TO CHEST TUBE ON-NOTED AIRLEAK CONTINUES-O2 SATURATION DECREASE TO 88 WITH AMBULATION-RECOVER TIME 5 MIN WITH RETURN TO BED AND ENCOURAGED DB -95%-CHEST TUBE PATENT AND O2 IN PLACE
--- NOTE | 2019-07-11 18:39 | NUR ---
1714-HOME OFIV GIVEN TO PT BY - DIRECTED BY DR EASTON-
--- NOTE | 2019-07-11 19:00 | NUR ---
REPORT RECEIVED. RECEIVED PATIENT SITTING UP IN BED. AWAKE ALERT AND ORIENTED X4. ASSESSMENT COMPLETED PER FLOW SHEET WITH NO ACUTE DISTRESS OBSERVED. BECOMES SOB EASILY WHEN TALKING AND MOVING. MONITORS CONNECTED TO PATIENT WITH ALARMS SET. VSS. LEFT CHEST TUBE INTACT/SECURE/PATENT CONNECTED TO 20 CM SUCTION AND DRAINING SCANT AMT OF SEROUS FLUID INTO COLLECTION CHAMBER. CALL LIGHT WITH IN EASY REACH AND ABLE TO UTILIZE TO MAKE NEEDS KNOWN.
--- NOTE | 2019-07-11 21:00 | NUR ---
AWAKE AND ALERT. VISITING WITH FAMILY AT BEDSIDE. PM MEDS TAKEN WITHOUT DIFF. DENIES NEEDS AT THIS TIME. CALL LIGHT IN REACH
--- NOTE | 2019-07-11 23:00 | NUR ---
REASSESSMENT COMPLETED PER FLOW SHEET WITH NO ACUTE DISTRESS OBSERVED. VSS. RESP EVEN AND UNLABORED AT PRESENT. CALL LIGHT IN REACH
[2019-07-12] VITALS (22 sets, daily range): BP systolic 108–143; BP diastolic 68–90
--- NOTE | 2019-07-12 01:00 | NUR ---
RESTING WITH EYES CLOSED, EASILY ROUSED AND ALERT. VSS. RESP EVEN AND UNLABORED.
--- NOTE | 2019-07-12 03:00 | NUR ---
REASSESSMENT COMPLETED SEE FLOW SHEET. NO ACUTE DISTRESS OBSERVED. RESP EVEN AND UNLABORED. VSS. CALL LIGHT IN REACH
--- NOTE | 2019-07-12 05:00 | NUR ---
RESTING WITH EYES CLOSED, EASILY ROUSED AND ALERT. VSS. CALL LIGHT IN REACH
[2019-07-12 06:42] LABS: ALBUMIN 2.4 g/dL (3.4-5.0); ALKALINE PHOSPHATASE 88 U/L (30-120); ALT (SGPT) 100 U/L (10-68); BILIRUBIN - TOTAL 0.58 mg/dL (0.2-1.3); CALC OSMOLALITY 273 mosm/kg (275-300); CALCIUM 8.8 mg/dL (8.5-10.1); CARBON DIOXIDE 30.6 mmol/L (21.0-32.0); CHLORIDE - SERUM 99 mmol/L (98-107); CREATININE - SERUM 0.6 mg/dL (0.6-1.3); GLUCOSE 148 mg/dL (74-106); MAGNESIUM - SERUM 2.2 mg/dL (1.8-2.4); POTASSIUM - SERUM 4.1 mmol/L (3.5-5.1); SODIUM 135 mmol/L (136-145); UREA NITROGEN 15 mg/dL (7-18); eGFR NON AFRICAN AMERICAN > 90 mL/min (90-120)
[2019-07-12 06:43] LABS: PHOSPHOROUS 2.6 mg/dL (2.5-4.9)
[2019-07-12 06:44] LABS: BASOPHILS 0 % (0-2); EOSINOPHILS 0.5 % (0-7); HEMOGLOBIN 13.4 g/dL (13.5-17.5); IMMATURE GRANULOCYTES 0.4 % (0-5); LYMPHOCYTES 7.7 % (15-50); MCH 33.5 pg (26.0-34.0); MCHC 33.5 g/dL (31.0-37.0); MEAN PLATELET VOLUME 9.5 fL (7.4-10.4); MONOCYTES 12.5 % (2-11); NEUTROPHILS 78.9 % (40-80); PLATELET COUNT 295 10x3/uL (130-400); RDW 13.7 % (11.5-14.5)
[2019-07-12 06:59] LABS: WBC 14.7 10x3/uL (4.8-10.8)
--- NOTE | 2019-07-12 10:48 | NUR ---
AMBULATING TO REST ROOM LEAVES O2 AND SUCTION CONNECTED
--- NOTE | 2019-07-12 13:39 | NUR ---
DR BILLINGSLEY AT BEDSIDE -ALL QUESTIONS ADDRESSED -COMPLETE PROCEDURE AND RISKS EXPLAINED TO PT AND BY DR BILLINGSLEY-GENERAL EXPECTED COURSE OF EVENTS OUTLINED BY DR BILLINGSLEY-RISK VERSUS BENEFITS DISCUSSED-CONSENT SIGNED BY BOTH PT AND -L LATERAL CHEST TUBE REMAINS INTACT
--- NOTE | 2019-07-12 16:12 | NUR ---
PT SITTING UP IN CHAIR--NOTED NO AIRLEAK PRESENTING-TUBING PATENT SUCTION AT 20-ENCORAGED PT TO REPOSITION SELF IN CHAIR-NOTED AIRLEAK RETURNED-EXPLAINED TO PT UP IN CHAIR MAY PREVENT EXIT FOR TRAPPED AIR-PT RETURNED TO BED SUPINE-AIRLEAK PRESENT O2 SAT INCREASED TO 95-99%-SHOWN TO AIRLEAK SHOWS IN CHAMBER COMPARED TO SITTING IN CHAIR-BOTH NODDED UNDERSTANDING
--- NOTE | 2019-07-12 21:00 | NUR ---
MEDS GIVEN PER MAR. VSS.
--- NOTE | 2019-07-12 23:00 | NUR ---
REASSESSMENT DONE SEE FLOW SHEET VSS
[2019-07-13] VITALS (25 sets, daily range): BP systolic 113–154; BP diastolic 55–93
--- NOTE | 2019-07-13 | NUR ---
PT NPO AT THIS TIME.
--- NOTE | 2019-07-13 01:00 | NUR ---
PT RESTING IN BED VSS.
--- NOTE | 2019-07-13 03:00 | NUR ---
REASSESSMENT DONE SEE FLOW SHEET VSS
--- NOTE | 2019-07-13 05:00 | NUR ---
CLIPPED AND CHG BATH. IO COLLECTED DAILY WEIGHT COLLECTED. VSS.
[2019-07-13 05:06] LABS: BASOPHILS 0 % (0-2); EOSINOPHILS 0.1 % (0-7); HEMATOCRIT 40.5 % (42.0-54.0); HEMOGLOBIN 13.9 g/dL (13.5-17.5); IMMATURE GRANULOCYTES 0.8 % (0-5); LYMPHOCYTES 6.6 % (15-50); MCHC 34.3 g/dL (31.0-37.0); MEAN PLATELET VOLUME 9.2 fL (7.4-10.4); MONOCYTES 8.4 % (2-11); NEUTROPHILS 84.1 % (40-80); PLATELET COUNT 268 10x3/uL (130-400); RBC 4.09 10x6/uL (4.20-6.10); RDW 13.4 % (11.5-14.5)
[2019-07-13 05:21] LABS: WBC 10.5 10x3/uL (4.8-10.8)
[2019-07-13 05:45] LABS: ALBUMIN 2.3 g/dL (3.4-5.0); ALKALINE PHOSPHATASE 89 U/L (30-120); BILIRUBIN - TOTAL 0.96 mg/dL (0.2-1.3); CALC OSMOLALITY 280 mosm/kg (275-300); CALCIUM 8.7 mg/dL (8.5-10.1); CHLORIDE - SERUM 101 mmol/L (98-107); CREATININE - SERUM 0.7 mg/dL (0.6-1.3); GLUCOSE 166 mg/dL (74-106); MAGNESIUM - SERUM 1.9 mg/dL (1.8-2.4); POTASSIUM - SERUM 4.6 mmol/L (3.5-5.1); SODIUM 138 mmol/L (136-145); UREA NITROGEN 15 mg/dL (7-18); eGFR NON AFRICAN AMERICAN > 90 mL/min (90-120)
[2019-07-13 05:48] LABS: ALT (SGPT) 227 U/L (10-68); PHOSPHOROUS 3.8 mg/dL (2.5-4.9)
--- NOTE | 2019-07-13 11:09 | NUR ---
1040 PT ARRIVED TO ROOM WITH OR STAFF LETHARGIC BUT EASY TO AROUSE VSS DENIES PAIN, L CTX2 20CM SUCTION AIR LEAK PRESENT DR ALLEN AWARE, R RADIAL A LINE ZEROED GOOD WAVEFORM WRIST PROTECTOR IN PLACE CORBETT DRAINING YELLOW URINE, L MIDLINE AND L SUBCLAVIAN CVL DRESSING CDI, SEE IV FLOWSHEET, FAMILY AT BEDSIDE AND UPDATED BY DR ALLEN, WILL CONTINUE TO MONITOR
--- NOTE | 2019-07-13 12:25 | NUR ---
[address] CALABRESE, SPOKE WITH HARVINDER IN ADMIN WHO STATED DR CALABRESE WAS IN IDT MEETING, NOTIFIED OF MED QUESTION REGUARDING PTS ANTIBIOTIC AND REDNESS, HARVINDER STATED SHE WOULD HAVE HIM CALL BACK. 1215 DR CALABRESE IN UNIT AND OKAYED ABT TO BE GIVEN
--- NOTE | 2019-07-13 13:10 | NUR ---
Nutrition Follow-up: S/p thoracoscopy and mini thoracotomy. Diet: Clear Liquid -> Regular PO intake: 100% yesterday Wt: 165# (07/13); 165# (admit) Last BM: 07/12 per chart Labs noted: Glu 166, Alb 2.3 Meds noted: Solumedrol, Miralax -Rec ADAT as medically feasible. -Monitor wt. -RD following.
--- NOTE | 2019-07-13 13:35 | NUR ---
DR ALLEN IN UNIT, ORDERS FOR LOPRESSOR AND TO USE CUFF PRESSURE NOT A LINE PRESSURE
--- NOTE | 2019-07-13 15:53 | NUR ---
1500 SPOKE WITH AUTOMOBILE RADIATOR MECHANIC, AWAITING TESSALON PERLE TO BE REFILLED IN [facility]
--- NOTE | 2019-07-13 17:25 | NUR ---
PT ATE 100% DINNER, TOLERATED WELL, VSS, AT BEDSIDE, ABLE TO USE IS [id number] BREATHES, DENIES ALL NEEDS, CALL LIGHT WITHIN REACH
--- NOTE | 2019-07-13 19:00 | NUR ---
ASSESSMENT DONE SEE FLOW SHEET VSS NO SIGNS OF ACUTE DISTRESS NOTED WILL CONTINUE TO MONITOR.
--- NOTE | 2019-07-13 23:00 | NUR ---
2100 MED GIVEN PER 2299 REASSESSMENT DONE SEE FLOW SHEET VSS
[2019-07-14] VITALS (24 sets, daily range): BP systolic 114–138; BP diastolic 72–90
[2019-07-14 05:50] LABS: HEMATOCRIT 40.1 % (42.0-54.0); HEMOGLOBIN 13.6 g/dL (13.5-17.5); MCHC 33.9 g/dL (31.0-37.0); MCV 100.3 fL (80.0-100.0); MEAN PLATELET VOLUME 9.1 fL (7.4-10.4); RDW 13.5 % (11.5-14.5)
[2019-07-14 05:58] LABS: ALBUMIN 2.2 g/dL (3.4-5.0); ALKALINE PHOSPHATASE 74 U/L (30-120); BILIRUBIN - TOTAL 1.33 mg/dL (0.2-1.3); CALC OSMOLALITY 267 mosm/kg (275-300); CALCIUM 8.4 mg/dL (8.5-10.1); CARBON DIOXIDE 30.9 mmol/L (21.0-32.0); CHLORIDE - SERUM 97 mmol/L (98-107); CREATININE - SERUM 0.6 mg/dL (0.6-1.3); GLUCOSE 156 mg/dL (74-106); PHOSPHOROUS 3.5 mg/dL (2.5-4.9); POTASSIUM - SERUM 4.5 mmol/L (3.5-5.1); PROTEIN - SERUM 6.7 g/dL (6.4-8.2); SODIUM 132 mmol/L (136-145); UREA NITROGEN 13 mg/dL (7-18); eGFR NON AFRICAN AMERICAN > 90 mL/min (90-120)
[2019-07-14 06:01] LABS: ALT (SGPT) 143 U/L (10-68)
[2019-07-14 06:43] LABS: WBC 15.1 10x3/uL (4.8-10.8)
--- NOTE | 2019-07-14 07:00 | NUR ---
RECEIVED BEDSIDE REPORT AND ASSUMED CARE OF PATIENT. PATIENT ALERT AND ORIENTED X 4, SITTING UP IN BEDSIDE CHAIR. VSS. ART LINE TO RIGHT RADIAL, ZEROED AND LEVELED. LEFT SUBCLAVIAN CVL WITH CVP LEVELED AND ZEROED. BBS CLEAR AND EQUAL DIMINISHED IN LLL, SPO2 - 94% ON 2 LPM VIA NC. HR 102, ST ON CM. CHEST TUBE X 2 TO LEFT A AND P WITH 20 ML OF SEROUSANGUINOUS DRAINAGE NOTED FROM POSTERIOR AND 0 ML FROM ANTERIOR. CORBETT CATH IN PLACE WITH CLEAR YELLOW UOP NOTED. RATES PAIN 4/10 STATES MORPHINE PALEOLOGY TEACHER IS KEEPING PAIN AT AN ACCEPTABLE LEVEL. IS - 1500 AND IS UTILIZING INSTRUCTED. ZINACEF INFUSING AT 11.4 ML/HR AND PLASMOLYTE AT 30 CC/HR. HEAD TO TOE ASSESSMENT COMPLETED.
--- NOTE | 2019-07-14 07:15 | NUR ---
DR. ALLEN AT ROOM UPDATED AND EXAMINES JOSSELINE, ORDERS LOPRESSOR 12.5 MG.
--- NOTE | 2019-07-14 07:38 | NUR ---
PATIENT GIVEN LOPRESSOR 12.5 MG ORDERED AND PROVIDED WITH BREAKFAST TRAY.
--- NOTE | 2019-07-14 07:40 | NUR ---
PER DR. ALEJANDRO GOMES TO DC'D CORBETT AND ART LINE.
--- NOTE | 2019-07-14 08:58 | NUR ---
PATIENT VISITING WITH AT BEDSIDE. VSS. MORNING MEDS GIVEN PER MAR. VSS.
--- NOTE | 2019-07-14 09:27 | NUR ---
ART LINE DISCONTINUED PER DR. ALLEN, DIRECT PRESSURE HELD X 2 MINUTES, NO BLEEDING OR HEMATOMA NOTED, CLEANED AND DRESSED WITH 2X2 AND TEGADERM.
--- NOTE | 2019-07-14 09:56 | NUR ---
DR. CALABRESE AT ROOM UPDATED AND EXAMINES PATIENT. OK FOR PATIENT TO TAKE HOME MED OFEV 1 TABLET, BID WITH BREAKFAST AND DINNER. ORDER PLACED FOR PATIENT HOME MED AND MEDICATION SENT TO PHARMACY FOR LABEL.
--- NOTE | 2019-07-14 10:54 | NUR ---
CHELLE MALIK DC'D PER ORDER.
--- NOTE | 2019-07-14 11:03 | NUR ---
REASSESSMENT COMPLETED. VSS. SITTING UP IN BEDSIDE CHAIR. CHEST TUBES TO LOW WALL SUCTION NO AIR LEAK DETECTED.
--- NOTE | 2019-07-14 13:02 | NUR ---
PATIENT SITTING UP IN CHAIR, VISITING FAMILY MEMBERS. VSS. NO NEEDS AT THIS TIME.
--- NOTE | 2019-07-14 14:51 | NUR ---
DR. BA AT ROOM UPDATED AND EXAMINES PATIENT. TO HOLD OFEV UNTIL LIVER ENZYMES ARE BACK TO NORMAL. REASSESSMENT COMPLETED. VSS.
--- NOTE | 2019-07-14 18:23 | NUR ---
PATIENT TO RESTROOM, NO BM DID PASS GAS AND URINE OUTPUT 350 ML.
--- NOTE | 2019-07-14 19:00 | NUR ---
ASSESSMENT DONE SEE FLOW SHEET VSS WILL CONTINUE TO MONITOR.
--- NOTE | 2019-07-14 23:00 | NUR ---
REASSESMENT DONE SEEE FLOW SHEET VSS
[2019-07-15] VITALS (24 sets, daily range): BP systolic 115–141; BP diastolic 68–87
--- NOTE | 2019-07-15 01:00 | NUR ---
PT IN BED RESTING. VSS NO SIGNS OF ACUTE DISTRESS NOTED.
--- NOTE | 2019-07-15 03:00 | NUR ---
REASSESSMENT DONE SEE FLOW SHEET VSS
[2019-07-15 07:52] LABS: HEMATOCRIT 38.9 % (42.0-54.0); MCH 33.7 pg (26.0-34.0); MCHC 33.4 g/dL (31.0-37.0); MCV 100.8 fL (80.0-100.0); MEAN PLATELET VOLUME 9.4 fL (7.4-10.4); RBC 3.86 10x6/uL (4.20-6.10); RDW 13.5 % (11.5-14.5); WBC 13.5 10x3/uL (4.8-10.8)
[2019-07-15 08:00] LABS: ALBUMIN 2.1 g/dL (3.4-5.0); ALKALINE PHOSPHATASE 88 U/L (30-120); ALT (SGPT) 156 U/L (10-68); BILIRUBIN - TOTAL 0.65 mg/dL (0.2-1.3); CALC OSMOLALITY 273 mosm/kg (275-300); CALCIUM 8.9 mg/dL (8.5-10.1); CARBON DIOXIDE 32.8 mmol/L (21.0-32.0); CHLORIDE - SERUM 99 mmol/L (98-107); CREATININE - SERUM 0.6 mg/dL (0.6-1.3); GLUCOSE 161 mg/dL (74-106); POTASSIUM - SERUM 4.4 mmol/L (3.5-5.1); PROTEIN - SERUM 6.5 g/dL (6.4-8.2); SODIUM 135 mmol/L (136-145); UREA NITROGEN 15 mg/dL (7-18); eGFR NON AFRICAN AMERICAN > 90 mL/min (90-120)
--- NOTE | 2019-07-15 08:30 | NUR ---
REGULAR DIET SERVED ATE WELL. GOOD APPETITE.
--- NOTE | 2019-07-15 09:30 | NUR ---
DR. ALLEN HERE. SUCTION REMOVED FROM CHEST TUBES. NO AIR LEAK NOTED. PATIENT UP TO BATHROOM. HAS NOT HAD A BM YET. INCENTIVE SPIROMETRY UP TO 1750 ML TOLERATEIN WELL. AT BEDSIDE.
--- NOTE | 2019-07-15 10:23 | NUR ---
TURNS SELF FROM SIDE TO SIDE. NO DISTRESS. STATES HER INSIDES HURT. PAIN PILL GIVEN.
--- NOTE | 2019-07-15 10:30 | NUR ---
AMBULATED IN RUBIN TO THE FAR DOOR. TOLERATED WELL NO SHORTNESS OF BREATH NOTED. ON PORTABLE OXYGEN. NO AIR LEAK IN CHEST TUBE
--- NOTE | 2019-07-15 11:13 | OP ---
PATIENT NAME: TOMASZ SIDDIQI JR MEDICAL RECORD: [id number] :50 LOCATION:D.CVI D.CV02 ADMISSION DATE:07/07/19 SURGEON: DINO ALLEN MD DATE OF OPERATION: 07/13/2019 SURGEON: Dino Allen MD PROCEDURE PERFORMED: 1. Left video-assisted thoracoscopic surgery. 2. Left mini thoracotomy. 3. Bleb and large left bulla resection. 4. Pleurodesis. 5. Bronchoscopy. 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 ANESTHESIA: General endotracheal anesthesia, double lumen. SPECIMENS: 1. Inferior pulmonary ligament lymph node. 2. Purulent appearing fluid from the opening in the bulla. 3. Bullectomy. BLOOD LOSS: Minimal. COMPLICATIONS: None. CONDITION: Stable. DISPOSITION: ICU. OPERATIVE FINDINGS: 1. Bronchoscopy confirmed placement of a dual lumen tube. Left lung deflated prior to removing the chest tube. 2. Large bulla with a 4 mm discrete opening. The wall of the bulla were significantly thickened. A small mini posterior thoracotomy was necessary to adequately contain the long prior to resection. The underlying lung was irregular and may not hold a staple line. Several areas of staple line were reinforced with pledgeted sutures. 3. Mechanical pleurodesis. 4. Small air leak and positive pressure ventilation. OPERATIVE INDICATION: Spontaneous pneumothorax, severe bullous emphysema with a giant bulla, left lower lobe. PROCEDURE IN DETAIL: The patient was brought to the operating suite. Double lumen endotracheal tube was placed. Right lung was ventilated. The area of the bulla was then resected using a staple line reinforced with pledgeted sutures. Pleurodesis was performed. Progel was used along the suture line. The chest tubes were placed inferiorly and apically. Lung was reinflated. No obvious air leak. Chest wounds were closed. The patient extubated to ICU stable. OPERATIVE REPORT [id number] TOMASZ SIDDIQI TRANSINT:[id number] Voice Confirmation ID: [id number] DOCUMENT ID: [id number] DINO ALLEN MD at 1113 CC: [id number] DICTATION DATE: 07/13/19 1139 CARBIDE POWDER PROCESSOR: 07/13/19 1927 ADM IN [facility] [address] [id number]
--- NOTE | 2019-07-15 11:30 | NUR ---
LUNCH TRAY SERVED GOOD APPETITE. TAKING PO FLUIDS WELL. NO AIR LEAK. AT BEDSIDE. MONITOR SR-ST. GOOD COUGH
--- NOTE | 2019-07-15 12:27 | NUR ---
Nutrition Follow-up: Good appetite/PO intake. Diet: Regular PO intake: 80-100% Wt: 176# (07/15); 165# (admit) Labs noted: Na 135, Glu 161, Alb 2.1 Meds noted: Solumedrol, Miralax -May consider cardiac diet. -Monitor wt. -RD following.
--- NOTE | 2019-07-15 12:35 | NUR ---
WATCHING TV FAMILY HERE. NO DISTRESS. NO AIR LEAK. INCENTIVE SPIROMETRY DONE.
--- NOTE | 2019-07-15 19:00 | NUR ---
Report received from off going nurse. Pt is sitting up in bed watching TV at this time. Pt requested water and a suppository to help him go to the bathroom. Will speak with the DrSanti regarding pt request. No further needs noted at this time. Initial assessment completed, see flowsheet for details. Will continue to monitor.
--- NOTE | 2019-07-15 21:00 | NUR ---
Spoke with Dr Hudson regarding pt's request for a suppository. Orders received. Pt is sitting up in bed visiting with family at this time. No further needs voiced at this time. No s/s of distress noted. Will continue to monitor.
--- NOTE | 2019-07-15 23:00 | NUR ---
Reassessment completed, see flowhseet for details. Pt is laying in bed with eyes closed. No needs voiced. No s/s of distress noted. Will continue to monitor.
[2019-07-16] VITALS (25 sets, daily range): BP systolic 115–155; BP diastolic 69–86
--- NOTE | 2019-07-16 01:00 | NUR ---
Pt is resting in bed with eyes closed. No needs voiced. No s/s of distress noted. Will continue to monitor.
--- NOTE | 2019-07-16 03:00 | NUR ---
Reassessment completed, see flowsheet for details. Pt is laying in bed with eyes closed. No s/s of distress noted. Will continue to monitor.
--- NOTE | 2019-07-16 05:00 | NUR ---
Pt is laying in bed with eyes closed. No s/s of distress noted. Will continue to monitor.
[2019-07-16 06:52] LABS: HEMATOCRIT 39.3 % (42.0-54.0); HEMOGLOBIN 13.3 g/dL (13.5-17.5); MCHC 33.8 g/dL (31.0-37.0); MCV 100.5 fL (80.0-100.0); MEAN PLATELET VOLUME 9.3 fL (7.4-10.4); RBC 3.91 10x6/uL (4.20-6.10); RDW 13.4 % (11.5-14.5); WBC 10.7 10x3/uL (4.8-10.8)
--- NOTE | 2019-07-16 07:40 | NUR ---
UP IN CHAIR. AA&OX4. DENIES PAIN AT THIS TIME. HAS L-SUB CLV NOTED WITH PLASMOLYTE AT 30ML/HR AND MORPHINE RUG BACKING STENCILER. ON 2L O2 VIA NC. CT X 2 TO LEFT LATERAL CHEST TO WATER SEAL. DRESSING C/D/I. LEFT UPPER BACK INCISION WITH DRESSING C/D/I. AMBULATES TO BATHROOM INDEPENDENTLY. CALL LIGHT IN REACH. WILL CONTINUE TO MONITOR.
[2019-07-16 07:47] LABS: ALBUMIN 2.3 g/dL (3.4-5.0); ALKALINE PHOSPHATASE 97 U/L (30-120); BILIRUBIN - TOTAL 0.99 mg/dL (0.2-1.3); CALC OSMOLALITY 280 mosm/kg (275-300); CARBON DIOXIDE 31.5 mmol/L (21.0-32.0); CHLORIDE - SERUM 99 mmol/L (98-107); CREATININE - SERUM 0.7 mg/dL (0.6-1.3); GLUCOSE 178 mg/dL (74-106); POTASSIUM - SERUM 4.3 mmol/L (3.5-5.1); PROTEIN - SERUM 6.9 g/dL (6.4-8.2); SODIUM 138 mmol/L (136-145); UREA NITROGEN 14 mg/dL (7-18); eGFR NON AFRICAN AMERICAN > 90 mL/min (90-120)
[2019-07-16 07:48] LABS: ALT (SGPT) 427 U/L (10-68)
--- NOTE | 2019-07-16 08:14 | NUR ---
CT TO LEFT SIDE PLACED ON SUCTION PER DR. BILLINGSLEY. INTERMITENT AIR LEAK NOTED. WILL CONTINUE TO MONITOR.
--- NOTE | 2019-07-16 09:30 | NUR ---
RESTING COMFORTABLY IN CHAIR. DENIES PAIN. NO FURTHER NEEDS AT THIS TIME. WILL CONTINUE TO MONITOR.
--- NOTE | 2019-07-16 11:20 | NUR ---
RE-ASSESSMENT COMPLETED. NO ACUTE CHANGES FROM PREVIOUS ASSESSMENT. AMBULATED TO BATHROOM AT THIS TIME. CT REMAINED ON SUCTION PER ORDERS. SPOUSE AT BEDSIDE. WILL CONTINUE TO MONITOR.
--- NOTE | 2019-07-16 13:00 | NUR ---
RESTING COMFORTABLY IN BED. PAIN 2/10 AT INCISION SITE. AMBULATED TO BATHROOM. CT REMAINED ON 20CM SUCTION. NO FURTHER NEEDS AT THIS TIME.
--- NOTE | 2019-07-16 15:20 | NUR ---
RE-ASSESSMENT COMPLETED. CT X 1 TO LEFT LATERAL SIDE TO 20CM SUCTION. INTERMITTENT AIR LEAK NOTED. DRESSING C/D/I. MORPHINE INFORMATION MANAGEMENT SPECIALIST IN USE. PT IN BED. NO FURTHER NEEDS AT THIS TIME. WILL CONTINUE TO MONITOR.
--- NOTE | 2019-07-16 18:05 | NUR ---
RATES PAIN 5/10 AT INCISION SITE ON LEFT UPPER BACK. MORPHINE 2MG IV GIVEN PER ORDERS.
--- NOTE | 2019-07-16 19:00 | NUR ---
BEDSIDE REPORT AND SHIFT ASSESSMENT COMPLETE, SEE FLOWSHEET. VSS, NO SIGNS OF ACUTE DISTRESS NOTED. HR 99, NSR ON MONITIOR. 02 SAT 98 ON 2 L NC. L LATERAL CT TO 20 CM SUCTION, INTERMITTENT AIR LEAK, SEROUS DRAINAGE NOTED, DRESSING CDI. PT ALERT, ORIENTED. L SUBCLAVIAN CVL DRESSING CDI, SALINE LOCKED. PT DENIES ANY NEEDS AT THIS TIME, WILL CONTINUE TO MONITOR.
--- NOTE | 2019-07-16 21:00 | NUR ---
PT AMBULATED TO RESTROOM AND BACK WITH NO ASSISTANCE. MEDS GIVEN PER AUG. PT REQUSTING TO SLEEP. CALL LIGHT IN REACH.
--- NOTE | 2019-07-16 23:00 | NUR ---
REASSESSMENT COMPLETE, SEE FLOWSHEET.
--- NOTE | 2019-07-16 23:30 | NUR ---
PT AMBULATED TO RESTROOM AND BACK TO BED WITH MIN ASSISTANCE.
[2019-07-17] VITALS (25 sets, daily range): BP systolic 92–140; BP diastolic 54–83
--- NOTE | 2019-07-17 01:00 | NUR ---
PT AMBULATED TO BATHROOM AND BACK TO BED WITH NO ASSITANCE. L LAT CHEST TUBE DRESSING CDI, CT TO 20 CM SUCTION, INTERMITTENT AIR LEAK NOTED. PT DENIES ANY NEEDS AT THIS TIME.
--- NOTE | 2019-07-17 03:00 | NUR ---
REASSESSMENT COMPLETE, SEE FLOWSHEET.
--- NOTE | 2019-07-17 03:50 | NUR ---
PT AMBULATED TO BATHROOM AND BACK TO BED. LINEN CHANGE COMPLETE, PT REFUSED CHG BATH.
[2019-07-17 05:56] LABS: BASOPHILS 0 % (0-2); EOSINOPHILS 3.2 % (0-7); HEMATOCRIT 36.5 % (42.0-54.0); HEMOGLOBIN 12.3 g/dL (13.5-17.5); IMMATURE GRANULOCYTES 0.6 % (0-5); LYMPHOCYTES 16.4 % (15-50); MCH 33.6 pg (26.0-34.0); MCHC 33.7 g/dL (31.0-37.0); MCV 99.7 fL (80.0-100.0); MEAN PLATELET VOLUME 8.8 fL (7.4-10.4); MONOCYTES 10.3 % (2-11); NEUTROPHILS 69.5 % (40-80); PLATELET COUNT 221 10x3/uL (130-400); RBC 3.66 10x6/uL (4.20-6.10); RDW 13.3 % (11.5-14.5); WBC 11.4 10x3/uL (4.8-10.8)
[2019-07-17 06:02] LABS: CALCIUM 8.3 mg/dL (8.5-10.1); CARBON DIOXIDE 34.4 mmol/L (21.0-32.0); CHLORIDE - SERUM 101 mmol/L (98-107); CREATININE - SERUM 0.6 mg/dL (0.6-1.3); SODIUM 138 mmol/L (136-145); UREA NITROGEN 13 mg/dL (7-18); eGFR NON AFRICAN AMERICAN > 90 mL/min (90-120)
[2019-07-17 06:03] LABS: CALC OSMOLALITY 275 mosm/kg (275-300); GLUCOSE 103 mg/dL (74-106); POTASSIUM - SERUM 3.3 mmol/L (3.5-5.1)
--- NOTE | 2019-07-17 06:15 | NUR ---
POTASSIUM REPLACED PER ELECTROLYE PROTOCOL.
--- NOTE | 2019-07-17 07:38 | NUR ---
PT TO OR. CONCENTS ON CHART.
--- NOTE | 2019-07-17 11:12 | NUR ---
1022- REC'D BACK TO CVICU. VSS. ART LINE RT RADIAL. EPIDURAL FOR PAIN CONTROL. CXR DONE ORDERED. LEAKING ON LINENS TO L SIDE OF BACK. DR ALLEN HERE AT BS. DSNG CHANGED BY DR ALLEN. LINENS CHANGED. FAMILY AT BS.
--- NOTE | 2019-07-17 12:55 | NUR ---
Nutrition Follow-up: S/p thoracotomy this AM. Diet: Clear Liquid -> Regular PO intake: 57% avg x 6 meals Wt: 168.6# (07/17); 176# (07/15); 165# (07/07) Last BM: 07/17 per chart Labs noted: K+ 3.3, Ca 8.3 Meds noted: Dulcolax, Miralax, KCl -Rec ADAT as medically feasible. -Offer nutrition supplements if avg PO intake <50%. -Monitor wt. -RD following.
--- NOTE | 2019-07-17 18:34 | NUR ---
PT WATCHING TV. DENIES PAIN TO OP SITE. USING EPIDURAL PASSENGER BOOKING CLERK PRN. TAKING IN CL AND DID ADV DIET SHA ORDERED.
--- NOTE | 2019-07-17 19:00 | NUR ---
REPORT RECEIVED. RECEIVED PATIENT IN BED AWAKE ALERT AND ORIENTED X 4. ASSESSMENT COMPLETED PER FLOWSHEET WITH NO ACUTE DISTRESS OBSERVED. MONITORS CONNECTED TO PATIENT WITH ALARMS SET. VSS. LEFT CHEST TUBE INTACT SECURE PATENT, TO WATERSEAL DRAINING SCANT AMOUNT OF SEROUS FLUID INTO COLLECTION CHAMBER. NO LEAK VISIBLE. CALL LIGHT IN REACH AND ABLE TO UTILIZE TO MAKE NEEDS KNOWN.
--- NOTE | 2019-07-17 21:00 | NUR ---
RESTING WITH EYES CLOSED, EASILY ROUSED AND ALERT. PM MEDS TAKEN WITHOUT DIFF. VSS. CALL LIGHT IN REACH
--- NOTE | 2019-07-17 23:00 | NUR ---
REASSESSEMENT COMPLETED PER FLOW SHEET WITH NO ACUTE DISTRESS OBSERVED. VSS. CALL LIGHT IN REACH
[2019-07-18] VITALS (24 sets, daily range): BP systolic 97–135; BP diastolic 51–75
--- NOTE | 2019-07-18 01:00 | NUR ---
Resting with eyes closed, easily roused and alert. vss. call light in reach
--- NOTE | 2019-07-18 03:00 | NUR ---
REASSESSMENT COMPLETED PER FLOW SHEET WITH NO ACUTE DISTRESS OBSERVED. VSS. CALL LIGHT IN REACH
--- NOTE | 2019-07-18 05:00 | NUR ---
AWAKE AND ALERT. VSS. CALL LIGHT IN REACH
[2019-07-18 06:04] LABS: ALKALINE PHOSPHATASE 77 U/L (30-120); BILIRUBIN - TOTAL 1.36 mg/dL (0.2-1.3); CALC OSMOLALITY 268 mosm/kg (275-300); CALCIUM 8.5 mg/dL (8.5-10.1); CARBON DIOXIDE 31.7 mmol/L (21.0-32.0); CHLORIDE - SERUM 100 mmol/L (98-107); CREATININE - SERUM 0.5 mg/dL (0.6-1.3); GLUCOSE 91 mg/dL (74-106); POTASSIUM - SERUM 3.9 mmol/L (3.5-5.1); SODIUM 135 mmol/L (136-145); UREA NITROGEN 11 mg/dL (7-18); eGFR NON AFRICAN AMERICAN > 90 mL/min (90-120)
[2019-07-18 06:05] LABS: ALT (SGPT) 209 U/L (10-68)
[2019-07-18 07:11] LABS: HEMATOCRIT 35.1 % (42.0-54.0); HEMOGLOBIN 11.7 g/dL (13.5-17.5); MCH 33.4 pg (26.0-34.0); MCHC 33.3 g/dL (31.0-37.0); MCV 100.3 fL (80.0-100.0); MEAN PLATELET VOLUME 9.1 fL (7.4-10.4); RBC 3.5 10x6/uL (4.20-6.10); RDW 13.5 % (11.5-14.5); WBC 11.5 10x3/uL (4.8-10.8)
--- NOTE | 2019-07-18 07:31 | NUR ---
PT AWAKE AND ALERT, REPORTS ADEQUATE PAIN CONTROL WITH EPIDURAL. CT WITH NO AIR LEAK TO WATERSEAL DRAINAGE LEFT CHEST. BREAKFAST TRAY SERVED AND PT IS EATING BREAKFAST.
--- NOTE | 2019-07-18 09:50 | NUR ---
DR EDMONDS HERE ON ROUNDS.
--- NOTE | 2019-07-18 11:07 | OP ---
PATIENT NAME: TOMASZ SIDDIQI JR MEDICAL RECORD: [id number] :50 LOCATION:D.AYLA D.CV02 ADMISSION DATE:07/07/19 SURGEON: RASHI ALLEN MD DATE OF OPERATION: 07/17/2019 SURGEON: Rashi Allen MD PROCEDURE PERFORMED: Left thoracotomy and repair of air leak. PREOPERATIVE DIAGNOSES: Bullous emphysema, spontaneous pneumothorax. POSTOPERATIVE DIAGNOSES: Bullous emphysema, spontaneous pneumothorax, tear at suture line from bulla resection. ANESTHETIC: Double lumen general endotracheal anesthesia and epidural anesthesia. COMPLICATIONS: None. SPECIMENS: None. CONDITION: Stable. DISPOSITION: ICU. OPERATIVE FINDINGS: Discrete air leak at the midpoint of the staple line next to pledgeted sutures with the remainder of the resection line intact. Interrupted pledgeted sutures were placed. Progel was used. No air leak under positive pressure ventilation. Mechanical pleurodesis performed. INDICATION: Recurrent air leak, 3 days after resection of a large left lower lobe bulla in a patient with severe bullous emphysema. DESCRIPTION OF PROCEDURE: The patient was brought to the operating suite. Double lumen general endotracheal anesthesia was obtained, position confirmed with bronchoscopy. The patient turned into the right lateral decubitus position with appropriate padding. The old sutures in the left chest and the left chest tube were removed. The chest was entered, discrete leakage site was identified. Pledgeted sutures were placed. No residual air leak under water. The Progel was placed, separate chest tube placed to the apex. The patient was stable. Chest was closed, two muscle layers, two subcutaneous layers and skin, to ICU, stable. TRANSINT:[id number] Voice Confirmation ID: [id number] DOCUMENT ID: [id number] RASHI ALLEN MD at 1107 CC: PAUL CALLES MD [id number] DICTATION DATE: 07/17/19 1115 ASSESSMENT EXPERT: 07/17/19 1415 ADM IN [place] [id number] [place] [id number]
--- NOTE | 2019-07-18 11:18 | NUR ---
DR ALLEN HERE. ART LINE R RADIAL DCD. PRESSURE HELD 5 MIN AND BANDAGE APPLIED. ASSISTED PT TO CHAIR.
--- NOTE | 2019-07-18 12:36 | NUR ---
SUDDEN ONSET HR 180. ASSISTED BACK TO BED. PHONED DR ALLEN AND REPORTED. DR PETERSON CONSULTED. HR BACK TO NSR 100BPM FEW MIN AFTER BACK TO BED. DR PETERSON HERE. DR CALABRESE HERE. CXR STAT DONE. PT SHA ALL OF THIS WELL. BP 114/75.
--- NOTE | 2019-07-18 18:46 | NUR ---
DSNG CHANGED TO LEFT CT SITE. PAINT WITH BETADINE AND DRY 4X4 GAUZE APPLIED. NO DRAINAGE WAS SEEN ON BANDAGE.
--- NOTE | 2019-07-18 19:00 | NUR ---
REPORT RECEIVED. RECEIVED PATIENT IN BED AWAKE ALERT AND ORIENTED X 4. ASSESSMENT COMPLETED PER FLOW SHEET WITH NO ACUTE DISTRESS OBSERVED. MONITORS CONNECTED TO PATIENT WITH ALARMS SET. VSS. LEFT CHEST TUBE INTACT/SECURE/PATENT TO WATERSEAL DRAINING SEROSANGUINEOUS FLUID INTO COLLECTION CHAMBER WITH NO LEAK OBSERVED. CALL LIGHT IN REACH AND ABLE TO UTILIZE TO MAKE NEEDS KNOWN.
--- NOTE | 2019-07-18 21:00 | NUR ---
RESTING WITH EYES CLOSED, EASILY ROUSED AND ALERT. VSS. CALL LIGHT IN REACH
--- NOTE | 2019-07-18 23:00 | NUR ---
REASSESSMENT COMPLETED PER FLOW SHEET WITH NO ACUTE DISTRESS OBSERVED. VSS. CALL LIGHT IN REACH
[2019-07-19] VITALS (21 sets, daily range): BP systolic 104–145; BP diastolic 65–79
--- NOTE | 2019-07-19 01:00 | NUR ---
RESTING WITH EYES CLOSED, EASILY ROUSED AND ALERT. VSS CALL. LIGHT IN REACH
--- NOTE | 2019-07-19 03:00 | NUR ---
REASSESSMENT COMPLETED PER FLOW SHEET WITH NO ACUTE DISTRESS OBSERVED. VSS. CALL LIGHT IN REACH
--- NOTE | 2019-07-19 05:00 | NUR ---
AWAKE AND ALERT. VSS. CALL LIGHT IN REACH
[2019-07-19 06:03] LABS: HEMOGLOBIN 11.9 g/dL (13.5-17.5); MCH 33.8 pg (26.0-34.0); MCV 99.4 fL (80.0-100.0); MEAN PLATELET VOLUME 8.9 fL (7.4-10.4); RBC 3.52 10x6/uL (4.20-6.10); RDW 13.4 % (11.5-14.5); WBC 11.3 10x3/uL (4.8-10.8)
[2019-07-19 06:30] LABS: ALKALINE PHOSPHATASE 83 U/L (30-120); ALT (SGPT) 170 U/L (10-68); BILIRUBIN - TOTAL 1.27 mg/dL (0.2-1.3); CALC OSMOLALITY 266 mosm/kg (275-300); CALCIUM 8.6 mg/dL (8.5-10.1); CARBON DIOXIDE 31.7 mmol/L (21.0-32.0); CHLORIDE - SERUM 100 mmol/L (98-107); CREATININE - SERUM 0.5 mg/dL (0.6-1.3); GLUCOSE 93 mg/dL (74-106); MAGNESIUM - SERUM 1.8 mg/dL (1.8-2.4); POTASSIUM - SERUM 3.7 mmol/L (3.5-5.1); PROTEIN - SERUM 6.1 g/dL (6.4-8.2); SODIUM 134 mmol/L (136-145); UREA NITROGEN 9 mg/dL (7-18); eGFR NON AFRICAN AMERICAN > 90 mL/min (90-120)
--- NOTE | 2019-07-19 07:42 | NUR ---
BREAKFAST TRAY SERVED AND PT EATING WITH OUT DIFFICULTY. DENIES PAIN. EPIDURAL INFUSING. CT WITH NO AIR LEAK TO WATERSEAL DRAINAGE.
--- NOTE | 2019-07-19 12:33 | NUR ---
DR ALLEN HERE ON ROUNDS. CT TAKEN OUT BY DR ALLEN. DSNG APPLIED WITH VASELINE GAUZE AND 4X4. PT SHA WELL. REPOSITIONED FOR COMFORT.
--- NOTE | 2019-07-19 16:21 | NUR ---
PT OOB TO CHAIR. BLOODY DRAINAGE NOTED ON CT EXIT SITE BANDAGE. BANDAGE CHANGED. CXR DONE. RADIOLOGY REPORTS SM PNEUMO ON LEFT. CALLED TO DR ALLEN. CXR IN 4HRS ORDERED. PT WITH OUT C/O.
--- NOTE | 2019-07-19 19:00 | NUR ---
REPORT RECEIVED. REVEIVED PATIENT IN BED AWAKE ALERT AND ORIENTED X 4. ASSESSMENT COMPLETED PER FLOW SHEET WITH NO ACUTE DISTRESS OBSERVED. MONITORS CONNECTED TO PATIENT WITH ALARMS SET. VSS. RESP EVEN AND UNLABORED. CALL LIGHT IN REACH AND ABLE TO UTILIZE TO MAKE NEEDS KNOWN.
--- NOTE | 2019-07-19 21:30 | NUR ---
DR. OSMAN HERE. EPIDURAL REMOVED. SHA WELL . VSS
--- NOTE | 2019-07-19 22:30 | NUR ---
UP TO BATHROOM. VOIDED WITHOUT DIFF. GAIT STEADY. SHA WELL. VSS. BACK TO BED. CALL LIGHT IN REACH
--- NOTE | 2019-07-19 23:00 | NUR ---
REASSESSMENT COMPLETED PER FLOW SHEET WITH NO ACUTE DISTRESS OBSERVED. VSS. DENIES PAIN AT PRESENT. CALL LIGHT IN REACH
[2019-07-20] VITALS (29 sets, daily range): BP systolic 97–139; BP diastolic 56–89
--- NOTE | 2019-07-20 03:00 | NUR ---
REASSESSMENT COMPLETED PER FLOW SHEET WITH NO ACUTE DISTRESS OBSERVED. VSS. CALL LIGHT IN REACH
[2019-07-20 05:41] LABS: HEMATOCRIT 36.4 % (42.0-54.0); HEMOGLOBIN 12.4 g/dL (13.5-17.5); MCH 33.4 pg (26.0-34.0); MCHC 34.1 g/dL (31.0-37.0); MCV 98.1 fL (80.0-100.0); MEAN PLATELET VOLUME 8.9 fL (7.4-10.4); RBC 3.71 10x6/uL (4.20-6.10); RDW 13.1 % (11.5-14.5); WBC 11.4 10x3/uL (4.8-10.8)
[2019-07-20 06:09] LABS: ALBUMIN 2.1 g/dL (3.4-5.0); ALKALINE PHOSPHATASE 84 U/L (30-120); ALT (SGPT) 187 U/L (10-68); BILIRUBIN - TOTAL 0.93 mg/dL (0.2-1.3); CALC OSMOLALITY 268 mosm/kg (275-300); CARBON DIOXIDE 32.9 mmol/L (21.0-32.0); CHLORIDE - SERUM 100 mmol/L (98-107); CREATININE - SERUM 0.6 mg/dL (0.6-1.3); GLUCOSE 98 mg/dL (74-106); POTASSIUM - SERUM 3.9 mmol/L (3.5-5.1); PROTEIN - SERUM 6.4 g/dL (6.4-8.2); SODIUM 135 mmol/L (136-145); UREA NITROGEN 9 mg/dL (7-18); eGFR NON AFRICAN AMERICAN > 90 mL/min (90-120)
--- NOTE | 2019-07-20 06:47 | NUR ---
SPOKE WITH DR. ALLEN. REPORTED CXR RESULTS NEW ORDERS RECEIVED.
--- NOTE | 2019-07-20 08:30 | NUR ---
PT RESTING COMFORTABLY IN CHAIR. DENIES HAVING PAIN AT THIS TIME. ON 1.5L O2 VIA NC. AMBULATES TO BATHROOM INDEPENDENTLY. DRESSING TO RADHA BACK AND LEFT LATERAL SIDE NOTED. CALL LIGHT IN REACH. NO FURTHER NEEDS AT THIS TIME. WILL CONTINUE TO MONITOR.
--- NOTE | 2019-07-20 09:58 | NUR ---
PRE OP MEDS GIVEN PER ORDERS. CONSENT FORMS FOR LEFT CHEST TUBE PLACEMENT SIGNED AND PLACED IN CHART. PT RESTING COMFORTABLY. FAMILY AT BEDSIDE. WILL CONTINUE TO MONITOR.
--- NOTE | 2019-07-20 10:02 | NUR ---
Nutrition Follow-up: NPO for chest tube placement. PO intake: 50-100% (07/18-07/19) Wt: 170.7# (07/20); 168.6# (07/17); 165# (07/07) Last BM: 07/17 per chart Labs noted: Na 135, AST 55, ALT 187, Alb 2.1 Meds noted: Dulcolax, Miralax -Rec resume diet following procedure as medically feasible. -Monitor wt. -RD following.
--- NOTE | 2019-07-20 11:18 | NUR ---
PT TRANSFERRED TO OR.
--- NOTE | 2019-07-20 12:21 | NUR ---
ARRIVED TO UNIT AT 1207 VIA BED. DEDATED. AROUSES WITH DEEP STIMULATION. ON 2L NC. CT TO LEFT UPPER CHEST TO WATER SEAL. DRESSING TO LEFT CHEST C/D/I. AXILLARY TEMP 97.1. HR 56. HOLD LOPRESSOR IS HR REMAINS IN 50S. FAMILY AT BEDSIDE. WILL CONTINUE TO MONITOR.
--- NOTE | 2019-07-20 15:25 | NUR ---
RE-ASSESSMENT COMPLETED. NO ACUTE CHANGES NOTED. RATES PAIN 4/[address] SITE. SPOUSE AT BEDSIDE. ICE WATER PROVIDED. DENIES OTHER NEEDS AT THIS TIME. WILL CONTINUE TO MONITOR.
--- NOTE | 2019-07-20 18:09 | NUR ---
RESTING COMFORTABLY IN BED. ICE WATER PROVIDED. DENIES OTHER NEEDS AT THIS TIME. WILL CONTINUE TO MONITOR.
--- NOTE | 2019-07-20 19:00 | NUR ---
VITAL SIGNS STABLE. NO VISUAL CUES OF DISTRESS NOTED. WILL CONTINUE TO MONITOR.
--- NOTE | 2019-07-20 21:00 | NUR ---
VITAL SIGNS STABLE. NO VISUAL CUES OF DISTRESS NOTED. WILL CONTINUE TO MONITOR.
--- NOTE | 2019-07-20 23:00 | NUR ---
VITAL SIGNS STABLE. NO VISUAL CUES OF DISTRESS NOTED. WILL CONTINUE TO MONITOR.
[2019-07-21] VITALS (22 sets, daily range): BP systolic 95–124; BP diastolic 55–71
--- NOTE | 2019-07-21 01:00 | NUR ---
VITAL SIGNS STABLE. NO VISUAL CUES OF DISTRESS NOTED. WILL CONTINUE TO MONITOR.
--- NOTE | 2019-07-21 03:00 | NUR ---
VITAL SIGNS STABLE. NO VISUAL CUES OF DISTRESS NOTED. WILL CONTINUE TO MONITOR.
--- NOTE | 2019-07-21 05:00 | NUR ---
VITAL SIGNS STABLE. NO VISUAL CUES OF DISTRESS NOTED. WILL CONTINUE TO MONITOR.
[2019-07-21 06:40] LABS: ALBUMIN 2.2 g/dL (3.4-5.0); BILIRUBIN - DIRECT 0.2 mg/dL (0.00-0.30); BILIRUBIN - INDIRECT 0.73 mg/dL (0.00-1.00); BILIRUBIN - TOTAL 0.93 mg/dL (0.2-1.3); PROTEIN - SERUM 6.5 g/dL (6.4-8.2)
--- NOTE | 2019-07-21 07:00 | NUR ---
RECEIVED REPORT ON PATIENT AND ASSUMED CARE. PATIENT SITTING UP IN BEDSIDE CHAIR, ALERT AND ORIENTED X 4. VSS. CM - NSR RATE OF 96, SPO2 - 96 ON 2 LPM VIA NC. BBS - CLEAR DIMINISHED IN BASES. LEFT SUBCLAVIAN CVL NSL AND LEFT UPPER ARM MIDLINE NSL. NO NEEDS AT THIS TIME. LEFT CHEST TUBE TO WATER SEAL NO AIR LEAK NOTED. HEAD TO TOE ASSESSMENT COMPLETED.
[2019-07-21 07:37] LABS: ALBUMIN 2.3 g/dL (3.4-5.0); ALKALINE PHOSPHATASE 92 U/L (30-120); ALT (SGPT) 150 U/L (10-68); BILIRUBIN - TOTAL 0.88 mg/dL (0.2-1.3); CALC OSMOLALITY 265 mosm/kg (275-300); CALCIUM 8.8 mg/dL (8.5-10.1); CHLORIDE - SERUM 99 mmol/L (98-107); GLUCOSE 117 mg/dL (74-106); POTASSIUM - SERUM 4.2 mmol/L (3.5-5.1); PROTEIN - SERUM 6.5 g/dL (6.4-8.2); SODIUM 133 mmol/L (136-145); UREA NITROGEN 10 mg/dL (7-18)
[2019-07-21 07:39] LABS: CREATININE - SERUM 0.8 mg/dL (0.6-1.3)
[2019-07-21 07:40] LABS: eGFR NON AFRICAN AMERICAN > 90 mL/min (90-120)
--- NOTE | 2019-07-21 07:50 | NUR ---
PATIENT GIVEN BREAKFAST TRAY AND COFFEE. VSS.
[2019-07-21 08:02] LABS: HEMATOCRIT 36.6 % (42.0-54.0); HEMOGLOBIN 12.4 g/dL (13.5-17.5)
[2019-07-21 08:22] LABS: BASOPHILS 0.2 % (0-2); EOSINOPHILS 2.5 % (0-7); HEMATOCRIT 36.8 % (42.0-54.0); HEMOGLOBIN 12.5 g/dL (13.5-17.5); IMMATURE GRANULOCYTES 1.1 % (0-5); LYMPHOCYTES 15.4 % (15-50); MCH 33.8 pg (26.0-34.0); MCV 99.5 fL (80.0-100.0); MEAN PLATELET VOLUME 9.2 fL (7.4-10.4); MONOCYTES 7.1 % (2-11); NEUTROPHILS 73.7 % (40-80); PLATELET COUNT 252 10x3/uL (130-400); RDW 13.4 % (11.5-14.5); WBC 12.1 10x3/uL (4.8-10.8)
--- NOTE | 2019-07-21 08:45 | NUR ---
CT DRESSING CHANGED AND DATED.
--- NOTE | 2019-07-21 09:13 | NUR ---
PATEINT ATE APPROXIMATELY 100% OF HIS BREAKFAST.
--- NOTE | 2019-07-21 09:53 | NUR ---
PATEINT UP TO BATHROOM.
--- NOTE | 2019-07-21 11:10 | NUR ---
REASSESSMENT COMPLETED. VSS. NO NEEEDS AT THIS TIME.
--- NOTE | 2019-07-21 11:43 | OP ---
PATIENT NAME: TOMASZ SIDDIQI JR MEDICAL RECORD: [id number] :50 LOCATION:CHRIST[facility] SteeleCV02 ADMISSION DATE:07/07/19 SURGEON: RASHI ALLEN MD DATE OF OPERATION: 07/20/2019 SURGEON: Rashi Allen MD PROCEDURE: Left enteric tube thoracostomy. INDICATIONS: Pneumothorax. PROCEDURE NOTE: With the patient in the operating room, moderately reclined left anterior chest was sterilely prepped and draped. A 1% Xylocaine used for local anesthetic and the pneumothorax was localized with a small needle. A 2 cm skin incision was made, spread down between the intercostals and a 28-[place] trocar tube was directed anteriorly and apically. Position confirmed with fluoroscopy, sutured in place connected to a Pleur-Evac. No apparent complication. No blood loss. TRANSINT:[id number] Voice Confirmation ID: [id number] DOCUMENT ID: [id number] RASHI ALLEN MD at 1143 CC: DL EASTON MD [id number] DICTATION DATE: 07/20/19 1314 CARBONIZER TESTER: 07/20/19 1758 ADM IN [facility] [address] [phone]
--- NOTE | 2019-07-21 11:50 | NUR ---
PATIENT GIVEN LUNCH TRAY. VSS. NO NEEDS AT THIS TIME. AT BEDSIDE.
--- NOTE | 2019-07-21 12:02 | NUR ---
PATIENT UP TO BATHROOM UOP 250 ML/HR. VSS. BACK TO CHAIR TO EAT LUNCH.
--- NOTE | 2019-07-21 12:14 | NUR ---
DR. EASTON AT ROOM UPDATED AND EXAINES PATIENT. CT PLACED TO [address] ALLEN.
--- NOTE | 2019-07-21 12:23 | NUR ---
DR. ALLEN AT ROOM UPDATED AND EXAMINES PATIENT. SPEAKS AT LENGTH TO PATIENT AND SPOUSE REGARDING CONDITION AND TREATMENT.
--- NOTE | 2019-07-21 14:59 | NUR ---
REASSESSMENT COMPLETED. VSS. PATIENT RESTING QUIETLY IN BED, EYES CLOSED, EASILY AROUSED BY VOICE.
[2019-07-22] VITALS (22 sets, daily range): BP systolic 98–118; BP diastolic 46–69
[2019-07-22 06:56] LABS: ALBUMIN 2.1 g/dL (3.4-5.0); BILIRUBIN - DIRECT 0.28 mg/dL (0.00-0.30); BILIRUBIN - INDIRECT 0.81 mg/dL (0.00-1.00); BILIRUBIN - TOTAL 1.09 mg/dL (0.2-1.3); PROTEIN - SERUM 5.9 g/dL (6.4-8.2)
--- NOTE | 2019-07-22 07:00 | NUR ---
RESTING IN BED NO DISTRESS. LEFT UPPER CHEST, CHEST TUBE TO 20 CM SUCTION SERSANG DRAINAGE IN TUBEING. DENIES MUCH PAIN. AMBULATED TO BATHROOM, WITH MINIMAL ASSISTANCES WITH CHEST TUBE AND SUCTION LINE. DRESSING DRY AND INTACT LEFT LATERAL CHEST. OXYGEN AT 2 LITERS PER NC. USING INCENTIVE SPIROMETRY IN USE BY PATIENT.
--- NOTE | 2019-07-22 08:00 | NUR ---
UP IN CHAIR AT BEDSIDE AMBULATED TO BATHROOM. TOLERATED WELL. BREAKFAST TRAY SERVED. FAIR APPETITE. HERE ASSIST PATIENT WITH SET UP
[2019-07-22 08:22] LABS: BASOPHILS 0.2 % (0-2); EOSINOPHILS 2.8 % (0-7); HEMATOCRIT 33.4 % (42.0-54.0); HEMOGLOBIN 11.2 g/dL (13.5-17.5); LYMPHOCYTES 8.9 % (15-50); MCH 33.4 pg (26.0-34.0); MCHC 33.5 g/dL (31.0-37.0); MCV 99.7 fL (80.0-100.0); MONOCYTES 8.8 % (2-11); NEUTROPHILS 78.3 % (40-80); PLATELET COUNT 240 10x3/uL (130-400); RBC 3.35 10x6/uL (4.20-6.10); RDW 13.8 % (11.5-14.5); WBC 12.3 10x3/uL (4.8-10.8)
--- NOTE | 2019-07-22 09:00 | NUR ---
ASSIST PATIENT WITH BATH. PATIENT REQUEST FIRST STEP MATTRESS BE REMOVED OFF BED. STATES HE KEEPS SLIDDING DOWN. LINEN CHANGE DONW
--- NOTE | 2019-07-22 09:15 | NUR ---
DR. ALLEN HERE. STATES PATIENT NOT TO BE OFF SUCTION ON CHEST TUBE TODAY. PATIENT WATCHING TV. NO DISTRESS
--- NOTE | 2019-07-22 11:00 | NUR ---
LUNCH TRAY SERVED. ASSIST WITH SET UP
--- NOTE | 2019-07-22 13:00 | NUR ---
AMBULATED TO BED FOR NAP. TOLERATED WELL GAIT GOOD.
--- NOTE | 2019-07-22 13:05 | NUR ---
Nutrition Follow-up: Eating well. Diet: Regular PO intake: 100% x 4 meals No new wt; last wt: 170.7# (07/20) Last BM: 07/21 per pt Labs reviewed Meds noted: Miralax, Dulcolax, Protonix, Xopenex -Continue current diet as tolerated. -Need new wt. -RD following.
--- NOTE | 2019-07-22 15:47 | NUR ---
SITTING IN BED ON COMPUTER WITH . NO DISTRESS.
--- NOTE | 2019-07-22 16:45 | NUR ---
dinner tray served. ate well. no distress. chest tube intact at 20 cm suction serous drainage.
--- NOTE | 2019-07-22 18:36 | NUR ---
ATE WELL GOOD APPETITE. NO DISTRESS. WATCHING TV
--- NOTE | 2019-07-22 19:55 | NUR ---
PT RECEIVED WITH EYES CLOSED AND CHEST RISING. NO S/S OF DISTRESS. EASILY AWOKEN TO VERBAL STIMULI. ASSIST TO BATHROOM WITH CHEST TUBE. BACK IN BED, URINE ONLY NOTED. NO NEEDS OR CONCERNS NOTED. CALL LIGHT IN REACH. WILL CONTINUE TO OBSERVE.
--- NOTE | 2019-07-22 21:55 | NUR ---
PT WITH EYES OPEN, NO NEEDS MADE KNOWN. CALL LIGHT IN REACH. WILL CONTINUE TO OBSERVE.
--- NOTE | 2019-07-22 23:58 | NUR ---
PT TO BATHROOM, URINE ONLY. ASSIST WITH CHEST TUBE GIVEN. BACK IN BED ON MONITOR. CALL LIGHT IN REACH. WILL CONTINUE TO OBSERVE
[2019-07-23] VITALS (24 sets, daily range): BP systolic 95–120; BP diastolic 51–67
--- NOTE | 2019-07-23 01:24 | NUR ---
PT RESTING WITH EYES CLOSED AND CHEST RISING. NO S/S OF DISTRESS. CALL LIGHT IN REACH. WILL CONTINUE TO OBSERVE.
--- NOTE | 2019-07-23 03:26 | NUR ---
PT ASSIST UP TO BATHROOM, SMALL BM NOTED. PT IN BED ON MONITOR. NO OTHER NEEDS MADE KNOWN. CALL LIGHT IN REACH. WILL CONTINUE TO OBSERVE.
[2019-07-23 05:10] LABS: BASOPHILS 0.2 % (0-2); EOSINOPHILS 3.4 % (0-7); HEMATOCRIT 32.9 % (42.0-54.0); HEMOGLOBIN 11.2 g/dL (13.5-17.5); IMMATURE GRANULOCYTES 0.9 % (0-5); LYMPHOCYTES 7.9 % (15-50); MCH 33.5 pg (26.0-34.0); MCV 98.5 fL (80.0-100.0); MEAN PLATELET VOLUME 8.6 fL (7.4-10.4); MONOCYTES 8.9 % (2-11); NEUTROPHILS 78.7 % (40-80); PLATELET COUNT 197 10x3/uL (130-400); RBC 3.34 10x6/uL (4.20-6.10); RDW 13.7 % (11.5-14.5); WBC 10.5 10x3/uL (4.8-10.8)
[2019-07-23 05:29] LABS: CALC OSMOLALITY 266 mosm/kg (275-300); CALCIUM 8.2 mg/dL (8.5-10.1); CARBON DIOXIDE 31.7 mmol/L (21.0-32.0); CHLORIDE - SERUM 98 mmol/L (98-107); CREATININE - SERUM 0.6 mg/dL (0.6-1.3); GLUCOSE 114 mg/dL (74-106); MAGNESIUM - SERUM 1.6 mg/dL (1.8-2.4); PHOSPHOROUS 2.8 mg/dL (2.5-4.9); POTASSIUM - SERUM 3.9 mmol/L (3.5-5.1); SODIUM 134 mmol/L (136-145); eGFR NON AFRICAN AMERICAN > 90 mL/min (90-120)
[2019-07-23 05:42] LABS: UREA NITROGEN 7 mg/dL (7-18)
--- NOTE | 2019-07-23 06:20 | NUR ---
PT UP TO BATHROOM WITH BM. UP IN CHAIR AT THIS TIME.
--- NOTE | 2019-07-23 07:05 | NUR ---
PATIENT UP IN RECLINER WATCHING TV. ON 2L NC. BREATHING IS NOTED TO BE SHALLOW HOWEVER DOES NOT APPEAR LABORED. NO OBVIOUS S/S OF DISTRESS NOTED. LUNG SOUNDS ARE DIMINISHED TO B/L BASES. CHEST TUBE TO LT UPPER CHEST WITH 20 CM OF SUCTION. SMALL AIR LEAK NOTED WITH PATIENT BREATHING PATTERN. ALL MONITORING EQUIPMENT ON AND FUNCTIONING PROPERLY. DENIES ANY NEEDS AT THIS TIME. WILL CONTINUE TO MONITOR.
--- NOTE | 2019-07-23 07:55 | NUR ---
PATIENT UP IN BOAT WASHER CHAIR EATING BREAKFAST INDEPENDENTLY.
--- NOTE | 2019-07-23 09:10 | NUR ---
PATIENT STATES "I AM DONE WITH ANYMORE OF THAT MIRALAX OR ANY OTHER STOOL SOFTENER, I THINK WE HAVE GOTTEN ALL THAT OUT OF THERE BETWEEN LAST NIGHT AND THIS MORNING". PATIENT REPORTS STOOLS THIS MORNING ARE BECOMING VERY THIN ALMOST TO LIQUID CONSISTANCY.
--- NOTE | 2019-07-23 09:20 | NUR ---
AT BEDSIDE. COMPLETE BATH AND LINEN CHANGE DONE WITH MINIMAL ASSISTANCE.
--- NOTE | 2019-07-23 13:10 | NUR ---
DR EASTON AT BEDSIDE AT THIS TIME TALKING WITH PATIENT AND FAMILY MEMBERS.
--- NOTE | 2019-07-23 14:05 | NUR ---
LT LATERAL CHEST DRESSING CHANGED AT THIS TIME. PATIENT TOLERATED WELL.
--- NOTE | 2019-07-23 15:46 | NUR ---
PATIENT UP TO BATHROOM WITH MINIMAL ASSIST. REMAINS AT BEDSIDE.
--- NOTE | 2019-07-23 16:33 | NUR ---
PATIENT SITTING UP IN BED EATING DINNER INDEPENDENTLY. DENIES OTHER NEEDS AT THIS TIME. BED IN LOW POSITION WITH PERSONAL ITEMS AND CALL LIGHT WITHIN REACH.
--- NOTE | 2019-07-23 19:15 | NUR ---
PT A/OX4, VOICES NEEDS, UP TO BATHROOM WITH STANDBY ASSIST, AMBULATES WELL, LEFT DLSC INTACT AND SL, LEFT CHEST TUBE IN PLACE TO 20 CM SUCTION, NO C/O AT THIS TIME
--- NOTE | 2019-07-23 21:15 | NUR ---
PT AWAKE WITH VISITORS PRESENT IN ROOM, VITALS STABLE
--- NOTE | 2019-07-23 23:00 | NUR ---
PT RESTING QUIETLY WITH EYES CLOSED, VITALS STABLE
[2019-07-24] VITALS (24 sets, daily range): BP systolic 95–130; BP diastolic 55–75
--- NOTE | 2019-07-24 01:13 | NUR ---
PT SLEEPING WITH NO DISTRESS NOTED, WILL CONT TO MONITOR
--- NOTE | 2019-07-24 03:05 | NUR ---
PT SLEEPING WITH NO CHANGES NOTED, WILL CONT TO MONITOR
--- NOTE | 2019-07-24 04:32 | NUR ---
PT OOB TO VOID, CHANGED PAJAMA PANTS WITH ASSIST, RETURNED TO BED, XRAY HERE FOR AM CHEST XRAY, NO C/O
--- NOTE | 2019-07-24 05:00 | NUR ---
PT AROUSES BRIEFLY, AM LAB DRAWN FROM LEFT [facility], VITALS STABLE
[2019-07-24 05:21] LABS: BASOPHILS 0.3 % (0-2); CALC OSMOLALITY 266 mosm/kg (275-300); CALCIUM 8.7 mg/dL (8.5-10.1); CHLORIDE - SERUM 100 mmol/L (98-107); CREATININE - SERUM 0.6 mg/dL (0.6-1.3); EOSINOPHILS 2.8 % (0-7); GLUCOSE 111 mg/dL (74-106); HEMATOCRIT 32.3 % (42.0-54.0); HEMOGLOBIN 10.9 g/dL (13.5-17.5); IMMATURE GRANULOCYTES 1.2 % (0-5); MAGNESIUM - SERUM 1.6 mg/dL (1.8-2.4); MCH 33.2 pg (26.0-34.0); MCHC 33.7 g/dL (31.0-37.0); MCV 98.5 fL (80.0-100.0); MEAN PLATELET VOLUME 8.6 fL (7.4-10.4); MONOCYTES 8.9 % (2-11); NEUTROPHILS 75.8 % (40-80); PLATELET COUNT 227 10x3/uL (130-400); POTASSIUM - SERUM 3.6 mmol/L (3.5-5.1); RBC 3.28 10x6/uL (4.20-6.10); RDW 13.5 % (11.5-14.5); SODIUM 134 mmol/L (136-145); UREA NITROGEN 6 mg/dL (7-18); WBC 9.6 10x3/uL (4.8-10.8); eGFR NON AFRICAN AMERICAN > 90 mL/min (90-120)
--- NOTE | 2019-07-24 10:03 | NUR ---
Nutrition Follow-up: Eating well. Noted Megace started yesterday. Diet: Regular PO intake: 75-100% Wt: 146.6# (07/24); 170.7# (07/20); 165# (07/07) Last BM: 07/24 Labs noted: Na 134, Glu 111, Mg 1.6 Meds noted: Megace, MagOx, Protonix -Continue current diet as tolerated. -Rec reweigh; difference of 24.1# from 07/20-07/24. -RD following.
--- NOTE | 2019-07-24 19:30 | NUR ---
PT AWAKE WITH HOB ELEVATED 45 DEGREES, WATCHING TV WITH NO C/O, O2 @ 2L VIA N/C, LEFT DLSC INTACT AND SL, LEFT MIDLINE INTACT AND SL, LEFT CHEST TUBE INTACT TO 20 CM SUCTION, VITALS STABLE, WILL CONT TO MONITOR
--- NOTE | 2019-07-24 21:00 | NUR ---
PT ALERT, TAKES PO MEDS WITHOUT DIFFICULTY, WATCHING TV, GIVEN ICE CREAM PER PT REQUEST
--- NOTE | 2019-07-24 23:00 | NUR ---
PT UP TO BATHROOM WITH STANDBY ASSIST, VOIDED, NO C/O AT THIS TIME
[2019-07-25] VITALS (23 sets, daily range): BP systolic 99–123; BP diastolic 52–83
--- NOTE | 2019-07-25 01:06 | NUR ---
PT SLEEPING WITH NO DISTRESS NOTED, VITALS STABLE
--- NOTE | 2019-07-25 03:19 | NUR ---
PT UP TO BATHROOM TO VOID WITH STANDBY ASSIST WITH PLEURAVAC, AMBULATES WELL, VITALS STABLE
--- NOTE | 2019-07-25 05:05 | NUR ---
PT SLEEPING, AM LABS DRAWN FROM LEFT DLSC, NO DISTRESS NOTED
[2019-07-25 05:30] LABS: BASOPHILS 0.4 % (0-2); EOSINOPHILS 3.9 % (0-7); HEMATOCRIT 32.8 % (42.0-54.0); HEMOGLOBIN 11.2 g/dL (13.5-17.5); IMMATURE GRANULOCYTES 1.4 % (0-5); LYMPHOCYTES 14.4 % (15-50); MCH 33.3 pg (26.0-34.0); MCHC 34.1 g/dL (31.0-37.0); MCV 97.6 fL (80.0-100.0); MEAN PLATELET VOLUME 8.7 fL (7.4-10.4); MONOCYTES 8.1 % (2-11); NEUTROPHILS 71.8 % (40-80); PLATELET COUNT 231 10x3/uL (130-400); RBC 3.36 10x6/uL (4.20-6.10); RDW 13.5 % (11.5-14.5); WBC 8.4 10x3/uL (4.8-10.8)
[2019-07-25 05:47] LABS: CALC OSMOLALITY 267 mosm/kg (275-300); CALCIUM 8.6 mg/dL (8.5-10.1); CHLORIDE - SERUM 101 mmol/L (98-107); CREATININE - SERUM 0.5 mg/dL (0.6-1.3); GLUCOSE 102 mg/dL (74-106); MAGNESIUM - SERUM 1.7 mg/dL (1.8-2.4); POTASSIUM - SERUM 3.5 mmol/L (3.5-5.1); SODIUM 135 mmol/L (136-145); UREA NITROGEN 6 mg/dL (7-18); eGFR NON AFRICAN AMERICAN > 90 mL/min (90-120)
--- NOTE | 2019-07-25 10:48 | NUR ---
DR. BILLINGSLEY HERE. CT SXN INCREASED TO 30.
--- NOTE | 2019-07-25 19:00 | NUR ---
PT ASSESSMENT COMPLETED AT THIS TIME, NO CHANGES NOTED FROM NURSE REPORT, PT AAOX4, PT DENIES COMPLAINTS OR DISTRESS AT THIS TIME, VSS, WILL MONITOR FOR CHANGES
--- NOTE | 2019-07-25 21:00 | NUR ---
PT RESTING IN BED WITH EYES CLOSED AWAKES TO NAME, PT DENIES DISTRESS OR COMPLAINTS AT THIS TIME, VSS, WILL MONITOR FOR CHANGES
--- NOTE | 2019-07-25 23:00 | NUR ---
PT REASSESSMENT COMPLETES AT THIS TIME, NO CHANGES NOTED FROM PREVIOUS EXAM, VSS, WILL MONITOR FOR CHANGES
[2019-07-26] VITALS (24 sets, daily range): BP systolic 94–136; BP diastolic 57–75
--- NOTE | 2019-07-26 01:00 | NUR ---
PT RESTING WITH EYES CLOSED RESP EVEN AND NON-LABORED, VSS, WILL MONITOR FOR CHANGES
--- NOTE | 2019-07-26 03:00 | NUR ---
PT REASSESSMENT COMPLETED AT THIS TIME, NO CHANGES NOTED FROM PREVIOUS EXAM, VSS, WILL MONITOR FOR CHANGES
--- NOTE | 2019-07-26 04:40 | NUR ---
PT ASSISTED UP TO THE BATHROOM, CHEST TUBE AIR LEAK INCREASED WHILE PATIENT WAS UP AND MOVING AND DECREASED AFTER PATIENT WAS BACK IN THE BED, VSS, WILL MONITOR FOR CHANGES
[2019-07-26 06:20] LABS: BASOPHILS 0.5 % (0-2); HEMATOCRIT 32.7 % (42.0-54.0); HEMOGLOBIN 11.2 g/dL (13.5-17.5); LYMPHOCYTES 13.3 % (15-50); MCH 33.3 pg (26.0-34.0); MCHC 34.3 g/dL (31.0-37.0); MCV 97.3 fL (80.0-100.0); MEAN PLATELET VOLUME 8.7 fL (7.4-10.4); MONOCYTES 8.5 % (2-11); NEUTROPHILS 72.7 % (40-80); PLATELET COUNT 243 10x3/uL (130-400); RBC 3.36 10x6/uL (4.20-6.10); RDW 13.7 % (11.5-14.5); WBC 9.2 10x3/uL (4.8-10.8)
[2019-07-26 06:46] LABS: CALC OSMOLALITY 266 mosm/kg (275-300); CALCIUM 9.1 mg/dL (8.5-10.1); CARBON DIOXIDE 27.1 mmol/L (21.0-32.0); CHLORIDE - SERUM 101 mmol/L (98-107); CREATININE - SERUM 0.6 mg/dL (0.6-1.3); GLUCOSE 108 mg/dL (74-106); MAGNESIUM - SERUM 1.8 mg/dL (1.8-2.4); POTASSIUM - SERUM 3.7 mmol/L (3.5-5.1); SODIUM 134 mmol/L (136-145); UREA NITROGEN 6 mg/dL (7-18); eGFR NON AFRICAN AMERICAN > 90 mL/min (90-120)
--- NOTE | 2019-07-26 19:00 | NUR ---
REPORT RECEIVED. PT RESTING IN BED, ALERT AND ORIENTED. ASSESSMENT COMPLETED, CT TO 30CM SUCTION, AIR LEAK NOTED. NO ACUTE DISTRESS NOTED AT THIS TIME, WILL CONTINUE TO MONITOR.
--- NOTE | 2019-07-26 21:00 | NUR ---
PT RESTING IN BED, NO ACUTE DISTRESS NOTED. WILL CONTINUE TO MONITOR.
--- NOTE | 2019-07-26 23:00 | NUR ---
PT RESTING QUIETLY, NO CHANGES IN STATUS. WILL CONTINUE TO MONITOR.
[2019-07-27] VITALS (17 sets, daily range): BP systolic 100–142; BP diastolic 62–82
--- NOTE | 2019-07-27 01:00 | NUR ---
PT ASSISTED TO BATHROOM, NO DIFFICULTY NOTED. ASSISTED BACK TO BED.
--- NOTE | 2019-07-27 03:00 | NUR ---
REASSESSMENT COMPLETED, PT RESTING COMFORTABLY IN BED. WILL CONTINUE TO MONITOR.
--- NOTE | 2019-07-27 05:00 | NUR ---
DRESSING CHANGED ON CT, PT ASSISTED TO CHAIR. WILL CONTINUE TO MONITOR.
[2019-07-27 06:23] LABS: BASOPHILS 0.3 % (0-2); EOSINOPHILS 3.9 % (0-7); HEMATOCRIT 30.8 % (42.0-54.0); HEMOGLOBIN 10.6 g/dL (13.5-17.5); IMMATURE GRANULOCYTES 0.9 % (0-5); LYMPHOCYTES 14.6 % (15-50); MCH 32.8 pg (26.0-34.0); MCHC 34.4 g/dL (31.0-37.0); MCV 95.4 fL (80.0-100.0); MEAN PLATELET VOLUME 8.5 fL (7.4-10.4); MONOCYTES 8.1 % (2-11); NEUTROPHILS 72.2 % (40-80); PLATELET COUNT 258 10x3/uL (130-400); RBC 3.23 10x6/uL (4.20-6.10); RDW 13.4 % (11.5-14.5)
[2019-07-27 06:52] LABS: CALC OSMOLALITY 263 mosm/kg (275-300); CALCIUM 9.1 mg/dL (8.5-10.1); CARBON DIOXIDE 25.8 mmol/L (21.0-32.0); CHLORIDE - SERUM 99 mmol/L (98-107); CREATININE - SERUM 0.5 mg/dL (0.6-1.3); GLUCOSE 120 mg/dL (74-106); MAGNESIUM - SERUM 1.7 mg/dL (1.8-2.4); PHOSPHOROUS 3.1 mg/dL (2.5-4.9); POTASSIUM - SERUM 3.7 mmol/L (3.5-5.1); SODIUM 132 mmol/L (136-145); UREA NITROGEN 7 mg/dL (7-18); eGFR NON AFRICAN AMERICAN > 90 mL/min (90-120)
--- NOTE | 2019-07-27 07:28 | NUR ---
PT SITTING UP IN CHAIR WATCHING TV. VSS AND WNL. CHEST TUBE NOTED TO LEFT ANT UPPER CHEST WITH AIRLEAK. SUB Q EMPHYSEMA NOTED AROUND CHEST TUBE, PT DENIES ANY TROUBLE BREATHING. PT DRESSING TO LEFT FRONT CHEST BELOW CT IS SATURATED WITH SEROUS DRAINAGE. CLEAN DRESSING APPLIED. PT ALERT AND ANSWERS ALL QUESTIONS. DENIES ANY PAIN AT THIS TIME, CALL LIGHT WITHIN REACH, WILL CONT TO FOLLOW POC
--- NOTE | 2019-07-27 09:15 | NUR ---
MIC RN HERE AND NOTIFIED OF DRAINAGE FROM OLD CT INCISION, MIC SETHI NOTIFIED . APPROVAL GIVEN TO ALLOW PT TO EAT BREAKFAST
--- NOTE | 2019-07-27 11:15 | NUR ---
PT SITTING IN CHAIR AT BEDSIDE, VSS AND WNL. NO SIGNS OF DISTRESS NOTED. CALL LIGHT WITHIN REACH, DENIES ANY NEEDS AT THIS TIME, WILL CONT TO FOLLOW POC
--- NOTE | 2019-07-27 13:30 | NUR ---
PT RESTING IN BED, AT BEDSIDE, CALL LIGHT WITHIN REACH. BED ALARM ON. DENIES ANY NEEDS AT THIS TIME, VSS. WILL CONT TO FOLLOW POC
--- NOTE | 2019-07-27 13:34 | NUR ---
Nutrition Follow-up: Pt reports appetite improving since starting Megace. Diet: Regular PO intake: 50-100% Wt: 147.7# (07/26); 146.6# (07/24); 170.7# (07/20); 165# (07/13) Last BM: 07/26 Labs noted: Na 132, Glu 120, Mg 1.7 Meds noted: MagOx, Megace, Protonix -Continue current diet as tolerated. -Monitor wt. -RD following.
--- NOTE | 2019-07-27 15:30 | NUR ---
PT RESTING IN BED, VSS AND WNL. BED ALARM ON. DENIES ANY NEEDS AT THIS TIME, CALL LIGHT WITHIN REACH, WILL CONT TO FOLLOW POC
--- NOTE | 2019-07-27 17:30 | NUR ---
PT RESTING IN BED, VSS AND WNL. BED ALARM ON. CALL LIGHT WITHIN REACH. AT BEDSIDE. DENIES ANY NEEDS AT THIS TIME, WILL CONT TO FOLLOW POC
[2019-07-28] VITALS (22 sets, daily range): BP systolic 98–129; BP diastolic 56–76
--- NOTE | 2019-07-28 05:00 | NUR ---
1900 ASSESSMENT DONE SEE FLOW SHEET VSS. NO SIGNS OF ACUTE DISTRESS NOTED. 2100 MEDS GIVEN PER MAR WILL CONTINUE TO MONITOR. 2300 REASSESSMENT DONE SEE FLOW SHEET VSS WILL CONTINUE TO MONITOR. 0100 WATER PROVIDED PER PT REQUEST. 0300 REASSESSMENT DONE SEE FLOW SHEET VSS 0500 CT DRESSING CHANGED. NO SIGNS OF ACUTE DISTRESS NOTED. BED LINEN CHANGED.
[2019-07-28 06:05] LABS: BASOPHILS 0.3 % (0-2); EOSINOPHILS 3.3 % (0-7); HEMATOCRIT 32.6 % (42.0-54.0); HEMOGLOBIN 11.1 g/dL (13.5-17.5); IMMATURE GRANULOCYTES 0.9 % (0-5); LYMPHOCYTES 14.2 % (15-50); MEAN PLATELET VOLUME 8.5 fL (7.4-10.4); MONOCYTES 7.8 % (2-11); NEUTROPHILS 73.5 % (40-80); PLATELET COUNT 289 10x3/uL (130-400); RBC 3.36 10x6/uL (4.20-6.10); RDW 13.7 % (11.5-14.5)
[2019-07-28 06:24] LABS: ALBUMIN 1.8 g/dL (3.4-5.0); ALKALINE PHOSPHATASE 134 U/L (30-120); ALT (SGPT) 461 U/L (10-68); BILIRUBIN - TOTAL 0.55 mg/dL (0.2-1.3); CALC OSMOLALITY 264 mosm/kg (275-300); CARBON DIOXIDE 27.6 mmol/L (21.0-32.0); CHLORIDE - SERUM 99 mmol/L (98-107); CREATININE - SERUM 0.6 mg/dL (0.6-1.3); GLUCOSE 136 mg/dL (74-106); MAGNESIUM - SERUM 1.7 mg/dL (1.8-2.4); POTASSIUM - SERUM 3.9 mmol/L (3.5-5.1); PROTEIN - SERUM 6.9 g/dL (6.4-8.2); SODIUM 132 mmol/L (136-145); UREA NITROGEN 6 mg/dL (7-18); eGFR NON AFRICAN AMERICAN > 90 mL/min (90-120)
--- NOTE | 2019-07-28 07:00 | NUR ---
RECEIVED BEDSIDE REPORT ON PATIENT AND ASSUMED CARE. PATIENT SITTING UP IN BEDSIDE CHAIR, ALERT AND ORIENTED X 4. LEFT LATERAL CHEST TUBE TO 20 CM SUCTION WITH INTERMITTENT AIR LEAK NOTED. PATIENT ON 2 LPM 02 VIA NC WITH SPO2 - 95%. CM - HR 88, NSR WITH NO ECTOPY NOTED. BBS - CLEAR DIMINISHED IN THE BASES, NONLABORED. MIDLINE IV TO LEFT UPPER ARM, FLUSHES EASILY WITH POSITIVE BLOOD RETURN. VSS. HEAD TO TOE ASSESSMENT COMPLETED.
--- NOTE | 2019-07-28 07:30 | NUR ---
PATIENT UP TO BATHROOM WITH ASSISTANCE, NO BM, VOIDS 250 ML OF UOP.
--- NOTE | 2019-07-28 08:27 | NUR ---
CXR COMPLETED. DR. ALLEN AT ROOM AND REVIEWS XRAY, UPDATED AND EXAMINES PATIENT. TO OBTAIN CT OF CHEST TODAY.
--- NOTE | 2019-07-28 09:10 | NUR ---
DR. CALABRESE AT ROOM UPDATED AND EXAMINES PATIENT. AT BEDSIDE. VSS.
--- NOTE | 2019-07-28 09:44 | NUR ---
PATIENT BACK FROM CT, TOLERATED WELL, VSS. REQUESTS TO GO BACK TO BED, ASSISTED BACK TO BED.
--- NOTE | 2019-07-28 11:06 | NUR ---
REASSESSMENT COMPLETED. VSS.
--- NOTE | 2019-07-28 11:29 | NUR ---
PATIENT UP TO BATHROOM, BM AND UOOP 300 ML. URINE SAMPLE OBTAINED AND SENT TO LAB.
--- NOTE | 2019-07-28 11:39 | NUR ---
DR. BA AT ROOM UPDATED AND EXAMINES PATIENT.
--- NOTE | 2019-07-28 12:04 | NUR ---
PATIENT ASSISTED IN REPOSITIONING IN BED AND GIVEN LUNCH TRAY.
[2019-07-28 12:12] LABS: BILIRUBIN NEGATIVE (NEGATIVE); GLUCOSE 100 mg/dL (NEGATIVE); KETONE NEGATIVE (NEGATIVE); NITRITE NEGATIVE (NEGATIVE); UROBILINOGEN NORMAL (NORMAL)
[2019-07-28 12:13] LABS: BACTERIA FEW /hpf (NEGATIVE); EPITHELIAL CELLS NSEEN /hpf (0-5); RED CELLS - URINE 0-5 /hpf (0-5); WHITE CELLS - URINE 0-5 /hpf (NEGATIVE)
--- NOTE | 2019-07-28 13:12 | NUR ---
PATIENT RESTING QUIETLY IN BED. VSS. AT BEDSIDE. NO NEEDS AT THIS TIME.
--- NOTE | 2019-07-28 14:01 | NUR ---
DR. ALLEN AT ROOM PLACED CT TO WATER SEAL. AIR LEAK NOTED. PATIENT IN NO RESPIRATORY DISTRESS. UP TO BATHROOM.
--- NOTE | 2019-07-28 14:05 | NUR ---
PATIENT URINATES 275 ML OF UOP, BACK TO BEDSIDE CHAIR. BATH SET UP FOR . BATHING PATIENT.
--- NOTE | 2019-07-28 14:17 | NUR ---
[facility] BATH GIVEN BY . PATIENT BACK TO BED.
--- NOTE | 2019-07-28 15:00 | NUR ---
REASSESSMENT COMPLETED. VSS. AT BEDSIDE. CT TO WATER SEAL.
--- NOTE | 2019-07-28 19:00 | NUR ---
BEDSIDE REPORT AND SHIFT ASSESSMENT COMPLETE, SEE FLOWSHEET. VSS. L CT TO WATERSEAL, AIR LEAK NOTED. DRESSING CDI. L MIDLINE PATENT, SALINE LOCKED. PT DENIES NEEDS AT THIS TIME. CALL LIGHT IN REACH, BED IN LOWEST POSITION. WILL MONITOR.
--- NOTE | 2019-07-28 21:00 | NUR ---
PT AMBULATED TO BATHROOM AND BACK WITH NO ASSISTANCE. MEDS GIVEN PER AUG.
--- NOTE | 2019-07-28 23:00 | NUR ---
REASSESSMENT COMPLETE, SEE FLOWSHEET.
[2019-07-29] VITALS (27 sets, daily range): BP systolic 101–131; BP diastolic 54–80
--- NOTE | 2019-07-29 03:00 | NUR ---
REASSESSMENT COMPLETE, SEE FLOWSHEET.
[2019-07-29 06:53] LABS: BASOPHILS 0.3 % (0-2); EOSINOPHILS 3.9 % (0-7); HEMATOCRIT 31.9 % (42.0-54.0); HEMOGLOBIN 10.8 g/dL (13.5-17.5); IMMATURE GRANULOCYTES 0.9 % (0-5); LYMPHOCYTES 13.3 % (15-50); MCH 32.9 pg (26.0-34.0); MCHC 33.9 g/dL (31.0-37.0); MCV 97.3 fL (80.0-100.0); MEAN PLATELET VOLUME 8.9 fL (7.4-10.4); MONOCYTES 8.1 % (2-11); NEUTROPHILS 73.5 % (40-80); RBC 3.28 10x6/uL (4.20-6.10); RDW 13.7 % (11.5-14.5)
--- NOTE | 2019-07-29 07:00 | NUR ---
AWAKE AND ALERT SKIN WARM AND DRY. UP IN CHAIR AT BEDSIDE. CHEST TO WATER SEAL DRAINAGE
[2019-07-29 07:02] LABS: PLATELET COUNT 359 10x3/uL (130-400)
[2019-07-29 07:06] LABS: ALBUMIN 1.7 g/dL (3.4-5.0); ALKALINE PHOSPHATASE 129 U/L (30-120); ALT (SGPT) 375 U/L (10-68); BILIRUBIN - TOTAL 0.51 mg/dL (0.2-1.3); CALC OSMOLALITY 264 mosm/kg (275-300); CALCIUM 9.1 mg/dL (8.5-10.1); CARBON DIOXIDE 25.5 mmol/L (21.0-32.0); CHLORIDE - SERUM 101 mmol/L (98-107); CREATININE - SERUM 0.6 mg/dL (0.6-1.3); GLUCOSE 114 mg/dL (74-106); MAGNESIUM - SERUM 1.7 mg/dL (1.8-2.4); POTASSIUM - SERUM 3.9 mmol/L (3.5-5.1); PROTEIN - SERUM 6.7 g/dL (6.4-8.2); SODIUM 133 mmol/L (136-145); UREA NITROGEN 6 mg/dL (7-18); eGFR NON AFRICAN AMERICAN > 90 mL/min (90-120)
--- NOTE | 2019-07-29 08:00 | NUR ---
BREAKFAST TRAY SERVED ATE WELL.
--- NOTE | 2019-07-29 08:58 | NUR ---
DR. ALLEN NOTIFIED OF INCREASE IN PNEUMO ON LEFT LUNG PER RADILOGIST. ORDERS RECEIVED TO RETURN TO 20 CM OF SUCTION
--- NOTE | 2019-07-29 09:15 | NUR ---
HERE UPDATE GIVEN. DR. ALLEN HERE ORDERS FOR CHEST X-RAY RECEIVED
--- NOTE | 2019-07-29 11:05 | NUR ---
RETURNED TO BED AMBULATING WELL IN ROOM. AIR LEAK NOTED PER CHEST TUBE AND PATIENT IS SHORT OF BREATHING. INCREASED SHORTNESS OF BREATH WITH AMBULATING.
--- NOTE | 2019-07-29 11:26 | NUR ---
Nutrition Follow-up: Eating well. Does not like Ensure or Boost. Diet: Regular, Ensure TID PO intake: 90-100% (07/27-07/28) Wt: 145.5# (07/29); 147.7# (07/26); 146.6# (07/24); 170.7# (07/20) Last BM: 07/28 per pt Labs noted: Na 133, Glu 114, Mg 1.7, elev LFTs, Alb 1.7 Meds noted: MagOx, Megace, Dulcolax, Protonix -D/c Ensure per pt request. -Monitor wt. -RD following.
--- NOTE | 2019-07-29 13:02 | NUR ---
TALKING WITH VISITORS. STATES HIS BREATHING IS BETTER WHEN HE IS LAYING IN THE BED.
--- NOTE | 2019-07-29 14:19 | NUR ---
UP TO BATHROOM WITH . GOOD GAIT. TOLERATED WELL. ALERT NO DISTRESS
--- NOTE | 2019-07-29 14:25 | NUR ---
TO CT FOR CHEST TUBE PLACEMENT PER BED. WITH PATIENT
[2019-07-29 14:55] LABS: APTT 34.6 SECONDS (22.8-39.4); INR 1.16 (0.85-1.17); PROTIME 14.7 SECONDS (11.6-15.0)
--- NOTE | 2019-07-29 15:36 | NUR ---
NO TX GIVEN PT IN SURGERY FOR CHEST TUBE
--- NOTE | 2019-07-29 15:50 | NUR ---
returned to room. awake and alert skin warm and dry. chest tubes x2 connected to 20 cm suction each. requesting a some water and a pain pill. dressing left anterior chest and left lateral chest chest dressing dry and intact. air leak still noted in chest tube #1. no air leak or drainage noted in chest tube #2. head of bed elevated 30 [address] left upper arm mid line dressing intact no drainage or redness at site.
--- NOTE | 2019-07-29 17:00 | NUR ---
NO CHANGE DRESSINGS DRY AND INTACT. LEFT UPPER ARM MID LINE DRESSING CHANGE IN FAMILY PHYSICIAN PER PROTOCAL. PATIENT TOLERATED WELL. NO REDNESS OR SWELLING AT SITE. SITE WITH SCAB AROUND IT. CHEST TUBE #1 WITH AIR LEAK. NO DRAINAGE OR AIR LEAK CHEST TUBE #2. ATE WELL FOR DINNER. SHAVING SELF TOLERATED FAIR.
--- NOTE | 2019-07-29 18:08 | NUR ---
NO CHANGES. NO DRAINAGE CHEST TUBE #2. AIR LEAK STILL PRESENT
--- NOTE | 2019-07-29 19:00 | NUR ---
REPORT RECEIVED. PT AAOX4, C/O OF SLIGHT PAIN IN LEFT SIDE OF CHEST. CT X2 IN PLACE, ASSESSMENT COMPLETE, SEE FLOWSHEET. LEFT UPPER ARM MIDLINE CATHETER IN PLACE, SEE IV FLOWSHEET. WILL CONTINUE TO MONITOR.
--- NOTE | 2019-07-29 21:00 | NUR ---
PT RESTING COMFORTABLY IN BED, PM MEDS TAKEN WITHOUT DIFFICULTY.
--- NOTE | 2019-07-29 23:00 | NUR ---
PT RESTING IN BED, NO ACUTE DISTRESS NOTED. WILL CONTINUE TO MONITOR.
[2019-07-30] VITALS (22 sets, daily range): BP systolic 101–121; BP diastolic 55–74
--- NOTE | 2019-07-30 01:00 | NUR ---
PT RESTING COMFORTABLY IN BED, NO ACUTE DISTRESS NOTED AT THIS TIME.
--- NOTE | 2019-07-30 03:00 | NUR ---
PT RESTING IN BED, NO ACUTE DISTRESS NOTED.
--- NOTE | 2019-07-30 05:00 | NUR ---
PT ASSISTED TO CHAIR. NO ACUTE DISTRESS NOTED. WILL CONTINUE TO MONITOR.
[2019-07-30 06:19] LABS: BASOPHILS 0.4 % (0-2); EOSINOPHILS 5.4 % (0-7); HEMATOCRIT 31.2 % (42.0-54.0); HEMOGLOBIN 10.5 g/dL (13.5-17.5); IMMATURE GRANULOCYTES 1.4 % (0-5); LYMPHOCYTES 13.9 % (15-50); MCH 32.5 pg (26.0-34.0); MCHC 33.7 g/dL (31.0-37.0); MCV 96.6 fL (80.0-100.0); MEAN PLATELET VOLUME 8.6 fL (7.4-10.4); MONOCYTES 8.4 % (2-11); NEUTROPHILS 70.5 % (40-80); PLATELET COUNT 346 10x3/uL (130-400); RBC 3.23 10x6/uL (4.20-6.10); RDW 13.7 % (11.5-14.5); WBC 8.1 10x3/uL (4.8-10.8)
[2019-07-30 06:45] LABS: ALBUMIN 1.7 g/dL (3.4-5.0); ALKALINE PHOSPHATASE 120 U/L (30-120); ALT (SGPT) 303 U/L (10-68); BILIRUBIN - TOTAL 0.37 mg/dL (0.2-1.3); CALCIUM 9.2 mg/dL (8.5-10.1); CARBON DIOXIDE 25.9 mmol/L (21.0-32.0); CHLORIDE - SERUM 101 mmol/L (98-107); CREATININE - SERUM 0.7 mg/dL (0.6-1.3); GLUCOSE 124 mg/dL (74-106); MAGNESIUM - SERUM 1.7 mg/dL (1.8-2.4); POTASSIUM - SERUM 4.1 mmol/L (3.5-5.1); PROTEIN - SERUM 6.7 g/dL (6.4-8.2); SODIUM 134 mmol/L (136-145); eGFR NON AFRICAN AMERICAN > 90 mL/min (90-120)
[2019-07-30 06:50] LABS: CALC OSMOLALITY 267 mosm/kg (275-300); UREA NITROGEN 10 mg/dL (7-18)
--- NOTE | 2019-07-30 07:00 | NUR ---
RECEIVED BEDSIDE REPORT AND ASSUMED CARE OF PATIENT. PATIENT SITTING UP IN BEDSIDE CHAIR, ALERT AND ORIENTED X 4. VSS. CM - SR RATE OF 94 WITH NO ECTOPY NOTED. BBS - CLEAR AND EQUAL DIMINISHED IN THE BASES. LEFT CHEST TUBE X 2, #1 WITH 50 ML OF SEROUS DRAINAGE NOTED, TO 20 CM SUCTION WITH AIR LEAK NOTED. CHEST TUBE #2 WITH NO DRAINAGE NOTED, TO 20 CM SUCTION WITH NO AIR LEAK NOTED. DRESSINGS C/D/I. PATIENT VOIDED 450 ML OF UOP. SPO2 - 96% ON 2 LPM VIA NC. RR - 22, RRR, NON LABORED. MIDLINE IV TO LEFT UPPER ARM INTACT, FLUSHES EASILY. HEAD TO TOE ASSESSMENT COMPLETED.
--- NOTE | 2019-07-30 07:45 | NUR ---
PATIENT GIVEN BREAKFAST TRAY. VSS.
--- NOTE | 2019-07-30 07:55 | NUR ---
DR. ALLEN AT ROOM, UPDATED AND EXAMINES PATIENT, PLACES LEFT CHEST TUBE TO WATER SEAL TO GET CXR AT 1200.
--- NOTE | 2019-07-30 08:14 | NUR ---
PATIENT ATE 100% OF BREAKFAST TRAY. VSS. NO NEEDS AT THIS TIME.
--- NOTE | 2019-07-30 11:06 | NUR ---
REASSESSMENT COMPLETED. VSS. SITTING UP IN BEDSIDE CHAIR, VISITING WITH . NO NEEDS AT THIS TIME.
--- NOTE | 2019-07-30 12:15 | NUR ---
LINENS CHANGED AND CHG BATH GIVEN PER .
--- NOTE | 2019-07-30 14:49 | NUR ---
CT DRESSINGS CHANGED, BETADINE OINTMENT APPLIED, 4X4 AND DEGADERM.
--- NOTE | 2019-07-30 15:18 | NUR ---
REASSESSMENT COMPLETED. VSS. PATIENT ASSISTED TO BATHROOM, VOIDS 200 ML UOP.
--- NOTE | 2019-07-30 19:00 | NUR ---
REPORT RECEIVED. PT AAOX4, NO ACUTE DISTRESS NOTED. CT X2 TO 20CM SUCTION, SEROUS DRAINAGE. AIR LEAK NOTED X1. ASSESSMENT COMPLETED, SEE FLOWSHEET. LEFT UPPER ARM MIDLINE CATHETER IN PLACE, SEE IV FLOWSHEET. WILL CONTINUE TO MONITOR.
--- NOTE | 2019-07-30 21:00 | NUR ---
PM MEDS TAKEN WITHOUT DIFFICULTY, NO ACUTE DISTRESS NOTED. WILL CONTINUE TO MONITOR.
--- NOTE | 2019-07-30 23:00 | NUR ---
PT RESTING IN BED, NO ACUTE DISTRESS NTOED. WILL CONTINUE TO MONITOR.
[2019-07-31] VITALS (26 sets, daily range): BP systolic 99–126; BP diastolic 60–75
--- NOTE | 2019-07-31 01:00 | NUR ---
PT ASSISTED TO BATHROOM, GAIT STEADY. DYSPNEA AFTER AMBULATING, RESOLVED AFTER LAYING IN BED.
--- NOTE | 2019-07-31 03:00 | NUR ---
PT RESTING IN BED, NO SIGNS OF ACUTE DISTRESS NOTED.
--- NOTE | 2019-07-31 05:00 | NUR ---
PT SITTING UP IN BED, AAOX4. NO ACUTE DISTRESS NOTED, WILL CONTINUE TO MONITOR.
[2019-07-31 06:16] LABS: BASOPHILS 0.5 % (0-2); HEMATOCRIT 32.4 % (42.0-54.0); HEMOGLOBIN 10.9 g/dL (13.5-17.5); IMMATURE GRANULOCYTES 0.8 % (0-5); LYMPHOCYTES 14.4 % (15-50); MCH 32.8 pg (26.0-34.0); MCHC 33.6 g/dL (31.0-37.0); MCV 97.6 fL (80.0-100.0); MEAN PLATELET VOLUME 8.9 fL (7.4-10.4); MONOCYTES 9.2 % (2-11); NEUTROPHILS 71.1 % (40-80); PLATELET COUNT 403 10x3/uL (130-400); RBC 3.32 10x6/uL (4.20-6.10); RDW 13.8 % (11.5-14.5); WBC 8.7 10x3/uL (4.8-10.8)
[2019-07-31 06:34] LABS: ALBUMIN 1.7 g/dL (3.4-5.0); ALKALINE PHOSPHATASE 119 U/L (30-120); ALT (SGPT) 241 U/L (10-68); BILIRUBIN - TOTAL 0.48 mg/dL (0.2-1.3); CALC OSMOLALITY 269 mosm/kg (275-300); CALCIUM 9.4 mg/dL (8.5-10.1); CARBON DIOXIDE 28.1 mmol/L (21.0-32.0); CHLORIDE - SERUM 100 mmol/L (98-107); CREATININE - SERUM 0.6 mg/dL (0.6-1.3); GLUCOSE 100 mg/dL (74-106); MAGNESIUM - SERUM 1.8 mg/dL (1.8-2.4); POTASSIUM - SERUM 3.8 mmol/L (3.5-5.1); PROTEIN - SERUM 6.8 g/dL (6.4-8.2); SODIUM 136 mmol/L (136-145); eGFR NON AFRICAN AMERICAN > 90 mL/min (90-120)
[2019-07-31 06:35] LABS: UREA NITROGEN 6 mg/dL (7-18)
--- NOTE | 2019-07-31 07:00 | NUR ---
RECEVIED BEDSIDE REPORT ON PATIENT AND ASSUMED CARE. PATIENT SITTING UP IN BEDSIDE CHAIR, ALERT AND ORIENTED X 4, WATCHING TV. RR - 30, NONLABORED, DOES GET SOB WITH EXERTION. BBS - CLEAR, DIMINISHED IN THE BASES. CHEST TUBE X [address] CHEST[address] #1 CT TO 20 CM WALL SUCTION WITH AIR LEAK PRESENT, NO OUTPUT NOTED. #2 CT TO 20 CM WALL SUCTION WITH NO AIR LEAK PRESENT, 24 ML OF SEROUS OUTPUT NOTED. CM - ST RATE OF 108, NO ECTOPY NOTED. SPO2 - 97% ON 2 LPM NC. MIDLINE IV TO LEFT UPPER ARM PATENT FLUSHES EASILY. PATIENT ASSISTED TO BATHROOM, RR INCREASED TO 40 WITH SOB ON EXERTION, HR INCREASED TO 120, RECOVERS QUICKLY ONCE BACK TO CHAIR. NO BM, PASSES GAS AND VOIDS 175 ML OF UOP. HEAD TO TOE ASSESSMENT COMPLETED.
--- NOTE | 2019-07-31 07:47 | NUR ---
PATIENT GIVEN BREAKFSAST TRAY. VSS.
--- NOTE | 2019-07-31 09:07 | NUR ---
MORNING MEDS GIVEN PER AUG. AIR LEAK NOTED TO IR CT.
--- NOTE | 2019-07-31 09:21 | NUR ---
PATEINT AVERAGING 1700 ON IS.
--- NOTE | 2019-07-31 09:40 | NUR ---
DR. CALABRESE AT ROOM UPDATED AND EXAMINES PATIENT.
--- NOTE | 2019-07-31 09:59 | NUR ---
Nutrition Follow-up: Eating well. Diet: Regular PO intake: 90-100% yesterday Wt: 149.9# (07/30); 145.5# (07/29); 146.6# (07/24) Last BM: 07/29 Labs noted: Alb 1.7 Meds noted: MagOx, Megace, Dulcolax, Protonix -Continue current diet as tolerated. -Monitor wt. -RD following.
--- NOTE | 2019-07-31 10:50 | NUR ---
LEFT CHEST TUBE #[address] ALLEN[address] DRESSED WITH VASILINE GUAZE, 4X4 AND TEGADERM DRESSING. VSS.
--- NOTE | 2019-07-31 11:24 | NUR ---
REASSESSMENT COMPLETED. VSS. PATIENT UP TO BATHROOM, VOIDS AND UC SENT TO LAB.
--- NOTE | 2019-07-31 11:54 | NUR ---
PATIENTS AT BEDSIDE, UPDATED AND QUESTIONS ANSWERED.
--- NOTE | 2019-07-31 13:32 | NUR ---
PATIENT TO IR FOR CT PLACEMENT WITH IR RN AND TECH, ON PORTABLE CM AND O2. VSS.
--- NOTE | 2019-07-31 14:37 | NUR ---
PATIENT BACK TO ROOOM FROM IR, NO REPOSITIONING NEEDED ON CT, TO REMAIN ON WATER SEAL, IF BECOMES SOB TO PLACE BACK TO SUCTION AND CALL DR. ALLEN. SPO2 - 96% ON 2 LPM VIA NC, HR 85, RRR, NO ECTOPY NOTED. RR - 22, RRR, STATES NO DYSPNEA AT THIS TIME. BBS - CLEAR AND EQUAL. AIR LEAK PRESENT IN CT. VSS. WILL CONTINUE TO MONITOR.
--- NOTE | 2019-07-31 15:02 | NUR ---
REASSESSMENT COMPLETED. VSS. PATIENT EATING LATE LUNCH.
--- NOTE | 2019-07-31 16:23 | NUR ---
PATIENT GIVEN DINNER TRAY. VSS.
--- NOTE | 2019-07-31 19:30 | NUR ---
PT A/OX4, WATCHING TV WITH NO C/O, LUNGS CLEAR, LEFT LATERAL CHEST TUBE IN PLACE TO WATER SEAL, LEFT MIDLINE INTACT AND SL, O2 @ 2L VIA N/C, VOICES NEEDS, VITALS STABLE
--- NOTE | 2019-07-31 21:00 | NUR ---
PT AROUSES EASILY, TAKES PO MEDS WITHOUT DIFFICULTY, VITALS STABLE
--- NOTE | 2019-07-31 22:00 | NUR ---
PT C/O SOB, REQUESTS CHEST TUBE BE PLACED TO SUCTION, NOTED AIRLEAK, WILL CONT TO MONITOR
--- NOTE | 2019-07-31 23:30 | NUR ---
PT SLEEPING WITH NO DISTRESS, CHEST TUBE RETURNED TO WATER SEAL, VITALS STABLE
[2019-08-01] VITALS (23 sets, daily range): BP systolic 99–129; BP diastolic 55–86
--- NOTE | 2019-08-01 01:00 | NUR ---
PT UP TO BATHROOM, HAD A BM, RETURNED TO BED WITH SOB AND LOW SPO2, REQUESTED TO PLACE CT TO SUCTION, CHEST TUBE PLACE TO 20 CM SUCTION, WILL CONT TO MONITOR
--- NOTE | 2019-08-01 02:30 | NUR ---
PT SLEEPING WITH NO DISTRESS, CHEST TUBE PLACED TO WATER SEAL, VITALS STABLE
--- NOTE | 2019-08-01 04:56 | NUR ---
PT AWAKE, DRINKING COFFEE WITH NO C/O, WILL CONT TO MONITOR
[2019-08-01 05:56] LABS: BASOPHILS 0.5 % (0-2); EOSINOPHILS 3.6 % (0-7); HEMATOCRIT 32.8 % (42.0-54.0); HEMOGLOBIN 11.1 g/dL (13.5-17.5); IMMATURE GRANULOCYTES 1.3 % (0-5); LYMPHOCYTES 14.5 % (15-50); MCH 32.8 pg (26.0-34.0); MCHC 33.8 g/dL (31.0-37.0); MEAN PLATELET VOLUME 8.6 fL (7.4-10.4); MONOCYTES 9.4 % (2-11); NEUTROPHILS 70.7 % (40-80); PLATELET COUNT 401 10x3/uL (130-400); RBC 3.38 10x6/uL (4.20-6.10); RDW 13.9 % (11.5-14.5); WBC 9.3 10x3/uL (4.8-10.8)
[2019-08-01 06:23] LABS: ALBUMIN 1.7 g/dL (3.4-5.0); ALKALINE PHOSPHATASE 120 U/L (30-120); ALT (SGPT) 205 U/L (10-68); BILIRUBIN - TOTAL 0.51 mg/dL (0.2-1.3); CALC OSMOLALITY 262 mosm/kg (275-300); CALCIUM 9.2 mg/dL (8.5-10.1); CARBON DIOXIDE 26.8 mmol/L (21.0-32.0); CHLORIDE - SERUM 97 mmol/L (98-107); CREATININE - SERUM 0.7 mg/dL (0.6-1.3); GLUCOSE 137 mg/dL (74-106); MAGNESIUM - SERUM 1.7 mg/dL (1.8-2.4); POTASSIUM - SERUM 4.2 mmol/L (3.5-5.1); PROTEIN - SERUM 6.9 g/dL (6.4-8.2); SODIUM 131 mmol/L (136-145); UREA NITROGEN 6 mg/dL (7-18); eGFR NON AFRICAN AMERICAN > 90 mL/min (90-120)
--- NOTE | 2019-08-01 07:15 | NUR ---
AWAKE AND ALERT AMBULATED TO THE BATHROOM WITH OXYGEN AT 2 LITERS PER NC, CHEST TUBE ON LEFT LATERAL CHEST TO 20 CM SUCTION. PATIENT DOES HAVE INCREASE IN SHORTNESS OF BREATH WITH AMBULATION. AIR LEAK NOTED IN CHEST TUBE. DRAINAGE SEROUS. GAIT STEADY. PATIENT NEEDS ASSISTANCES WITH LINES. MONITOR SR. ANTERIOR AND LATERAL CHEST DRESSINGS DRY AND INTACT. LEFT UPPER ARM MIDLINE DRESSING DRY AND INTACT.
--- NOTE | 2019-08-01 07:50 | NUR ---
BREAKFAST TRAY SERVED.
--- NOTE | 2019-08-01 09:25 | NUR ---
COMPLETE BED BATH GIVEN BY , MUMTAZ DIEZ APPLIED. PATIENT TOLERATES FAIR. COMPLETE LINE CHANGE. PATIENT CONTINUES TO GET SHORT OF BREATH WITH RESP RATE IN THE 40'S WITH MINIMAL ACTIVITY.
--- NOTE | 2019-08-01 10:35 | NUR ---
DR. ALLEN, BHARATI AND JESENIA ALL HERE TALKED WITH PATIENT AND IN DETAIL. CHEST TUBE SUCTION REMOVED PER DR. ALLEN AFTER CHEST X-RAY DONE.
--- NOTE | 2019-08-01 11:30 | NUR ---
LUNCH TRAY SERVED. BILATERAL LUNG SOUNDS CLEAR. GOOD LUNG SOUNDS LEFT LUNG. DENIES SHORTNESS OF BREATH.
--- NOTE | 2019-08-01 12:50 | NUR ---
WATCHING TV WITH . NO DISTRESS. DENIES SHORTNESS OF BREATH. NO CHANGE IN BILATERAL LUNG SOUNDS
--- NOTE | 2019-08-01 14:00 | NUR ---
CHEST X-RAY DONE TOLERATED WELL.
--- NOTE | 2019-08-01 15:48 | NUR ---
WATCHING TV WITH . AIR LEAK NOTED ON CHEST TUBE. DENIES ANY INCREASE IN SHORTNESS OF BREATH. BILATERAL LUNGS UNCHANGED. NO KINKS IN CHEST TUBE TUBING.
--- NOTE | 2019-08-01 16:30 | NUR ---
DINNER TRAY SERVED. GOOD APPETITE. PATIENT STATES HE IS BREATHING BETTER NOW WITHOUT SUCTION THEN EVER HAS BEFORE WHEN WITHOUT SUCTION.
--- NOTE | 2019-08-01 19:15 | NUR ---
PT A/OX4, WATCHING TV WITH HOB ELEVATED 30 DEGREES, LUNGS CLEAR, O2 @ 2L VIA N/C, LEFT MIDLINE INTACT AND SL, LEFT CHEST TUBE INTACT TO WATER SEAL, URINAL IN REACH @ BEDSIDE, NO C/O 2 THIS TIME
--- NOTE | 2019-08-01 21:00 | NUR ---
PT RESTING QUIETLY, AROUSES EASILY, TAKES PO MEDS WITHOUT DIFFICULTY, VITALS STABLE
--- NOTE | 2019-08-01 23:30 | NUR ---
PT AWAKE WATCHING TV WITH NO C/O, VITALS STABLE
[2019-08-02] VITALS (24 sets, daily range): BP systolic 101–159; BP diastolic 58–102
--- NOTE | 2019-08-02 01:00 | NUR ---
PT SLEEPING, LYING ON BACK WITH NO DISTRESS, CHEST TUBE REMAINS TO WATER SEAL, VITALS STABLE
--- NOTE | 2019-08-02 03:00 | NUR ---
PT AWAKE, VOIDING IN URINAL, NO CHANGES IN ASSESSMENT, WILL CONT TO MONITOR
[2019-08-02 06:05] LABS: BASOPHILS 0.4 % (0-2); EOSINOPHILS 4.3 % (0-7); HEMATOCRIT 32.4 % (42.0-54.0); HEMOGLOBIN 11.3 g/dL (13.5-17.5); IMMATURE GRANULOCYTES 2.3 % (0-5); LYMPHOCYTES 10.3 % (15-50); MCH 33.7 pg (26.0-34.0); MCHC 34.9 g/dL (31.0-37.0); MCV 96.7 fL (80.0-100.0); MEAN PLATELET VOLUME 8.5 fL (7.4-10.4); MONOCYTES 10.6 % (2-11); NEUTROPHILS 72.1 % (40-80); PLATELET COUNT 440 10x3/uL (130-400); RBC 3.35 10x6/uL (4.20-6.10); RDW 13.9 % (11.5-14.5); WBC 9.2 10x3/uL (4.8-10.8)
[2019-08-02 06:30] LABS: ALBUMIN 1.8 g/dL (3.4-5.0); ALKALINE PHOSPHATASE 122 U/L (30-120); ALT (SGPT) 220 U/L (10-68); BILIRUBIN - TOTAL 0.39 mg/dL (0.2-1.3); CALC OSMOLALITY 276 mosm/kg (275-300); CALCIUM 9.4 mg/dL (8.5-10.1); CARBON DIOXIDE 26.6 mmol/L (21.0-32.0); CHLORIDE - SERUM 104 mmol/L (98-107); CREATININE - SERUM 0.6 mg/dL (0.6-1.3); GLUCOSE 116 mg/dL (74-106); MAGNESIUM - SERUM 1.8 mg/dL (1.8-2.4); SODIUM 139 mmol/L (136-145); UREA NITROGEN 7 mg/dL (7-18); eGFR NON AFRICAN AMERICAN > 90 mL/min (90-120)
--- NOTE | 2019-08-02 07:30 | NUR ---
AWAKE AND ALERT SITTING UP IN BED. DENIES ANY INCREASE IN SHORT OF BREATH. STATES HE IS DOING OK. CHEST TO WATER SEAL DRAINAGE. AIR LEAK NOTED. MONITOR ST. VOIDED DARK RIGO CLEAR URINE. DRESSING ON ANTERIOR CHEST AND LATERAL CHEST DRY AND INTACT. LEFT UPPER ARM MIDLINE INTACT NO REDNESS OR DRAINAGE AT SITE. HEAD OF BED ELEVATED 30 DEGREES. NURSE CALL LIGHT WITHIN HANDS REACH.
--- NOTE | 2019-08-02 08:00 | NUR ---
BREAKFAST TRAY SERVED ATE WELL. DRINKING PLENTY OF FLUIDS. NO CHANGE.
--- NOTE | 2019-08-02 10:46 | NUR ---
WATCHING TV. NO DISTRESS. EATING ICE CREAM
--- NOTE | 2019-08-02 11:30 | NUR ---
DR. ALLEN HERE cOOK CHEST DRAIN VALVE APPLIED TO CURRENT CHEST TUBE. CORBETT CATH PAGE WITH AIR HOLE APPLIED TO COOK CHEST DRAIN VALVE. PATIENT TOLERATED PROCEDURE WELL. NO INCREASE IN SHORTNESS OF BREATH OR DROP IN PULSE OX NOTED. VITAL SIGNS STABLE. DR. BA HERE.
--- NOTE | 2019-08-02 11:32 | NUR ---
SLEEPING EYES CLOSED RESP DEEP AND REGULAR NO DISTRESS.
--- NOTE | 2019-08-02 12:00 | NUR ---
UP IN CHAIR AT BEDSIDE. LUNCH SERVED ATE WELL. DENIES ANY INCREASE IN SHORTNESS OF BREATH. OXYGEN TURNED UP TO 3 LITERS BECAUSE PATIENT USES 3 LITERS AT HOME.
--- NOTE | 2019-08-02 13:00 | NUR ---
NO INCREASE IN SHORTNESS OF BREATH. AMBULATED TO BATHROOM, DID BECOME SHORT OF BREATH WITH PULSE OX DROPPING TO 88%, RECOVERED IN LESS THAN 5 MIN. PATIENT TOLERATED FAIR.
--- NOTE | 2019-08-02 14:30 | NUR ---
AMBULATED TO BED WITH MINIMAL SHORTNESS OF BREATH. PULSE OX DOWN TO 92%.
--- NOTE | 2019-08-02 15:00 | NUR ---
CHEST X-RAY DONE. TOLERATED WELL
--- NOTE | 2019-08-02 16:07 | NUR ---
WATCHING TV. NO DISTRESS. NO INCREASE IN SHORTNESS OF BREATH. HEAD OF BED ELEVATED 30 DEGREES.
--- NOTE | 2019-08-02 17:53 | NUR ---
WATCHING TV NO DISTRESS. NO CHANGE IN BREATHING
--- NOTE | 2019-08-02 19:00 | NUR ---
REPORT RECEIVED. PT RESTING IN BED, AAOX4. ASSESSMENT COMPLETE, SEE FLOWSHEET. COOK VALVE IN PLACE, DRAINING SMALL AMOUNT OF SEROUS FLUID TO GRAVITY. LT UPPER ARM MIDLINE CATHETER IN PLACE, SEE IV FLOWSHEET. WILL CONTINUE TO MONITOR.
--- NOTE | 2019-08-02 21:00 | NUR ---
PT AMBULATED TO BATHROOM WITH SUPERVISION, RETURNED TO BED SOB WITH TACHYPNEA. RESOLVED AFTER LAYING IN BED. WILL CONTINUE TO MONITOR.
--- NOTE | 2019-08-02 23:00 | NUR ---
PT RESTING IN BED, NO ACUTE DISTRESS NOTED. CT DRAINING SCANT AMOUNT OF SEROUS FLUID.
[2019-08-03] VITALS (13 sets, daily range): BP systolic 94–128; BP diastolic 58–79
--- NOTE | 2019-08-03 01:00 | NUR ---
PT AAOX4, SITTING UP IN BED, NO ACUTE DISTRESS NOTED.
--- NOTE | 2019-08-03 03:00 | NUR ---
PT RESTING COMFORTABLY IN BED. NO ACUTE DISTRESS NOTED AT THIS TIME, WILL CONTINUE TO MONITOR.
--- NOTE | 2019-08-03 05:00 | NUR ---
PT AAOX4, ASSISTED TO CHAIR. SOB NOTED ON AMBULATION, RESOLVED SHORTLY AFTER SITTING. WILL CONTINUE TO MONITOR.
--- NOTE | 2019-08-03 07:00 | NUR ---
REPORT RECEVIED FROM THE OFF GOING RN. SEE ASSESSMENT IN THE PTS FLOW SHEET. PT VSS. 3L VIA NC. LEFT HEMLIC VALVE NOTED TO GRAVITY DRAIN. SCANT DRAINAGE NOTED. PT REQUEST A PAIN PILL. SEE MAR. PT REFUSED ALL BM MEDICATIONS. CALL LIGHT IN REACH. WILL CONT POC POC.
--- NOTE | 2019-08-03 09:46 | NUR ---
PT AMBULATED WITH PORTABLE O2. PT SLOW BUT VERY STEADY ON HIS FEET. PT DESATURATED BUT AT REST, HE QUICKLY OXINATED BACK ABOUVE 90%. PT AMBULATED ABOUT 100 FEET. WILL CONT POC.
--- NOTE | 2019-08-03 09:50 | NUR ---
DR ALLEN STATED THAT HE WAS OK FOR THE PT TO DC HOME FROM HIS STAND POINT. WILL TELL PRIMARY DOCTOR ONCE HE ROUNDS.
[2019-08-03] MEDS ORDERED: LOPRESSOR25 MG PO (11:37)
[2019-08-03] MEDS ORDERED: PERCOCET 5-3251 TAB PO (12:32)
[2019-08-03] MEDS ORDERED: LEVOFLOXACIN500 MG PO (12:34)
--- NOTE | 2019-08-03 12:36 | NUR ---
DR ANNA AT THE PTS BEDSIDE. OK TO DC HOME. SEE ORDERS.
--- NOTE | 2019-08-03 13:26 | MORECARE ---
CASE MANAGEMENT DISCHARGE SUMMARY PATIENT: TOMASZ SIDDIQI UNIT: [id number] ADM DATE: 07/07/19 AGE: 69 : 50 SEX: M ROOM/BED: D.[facility] AUTHOR: KERI PHELAN PHYSICIAN: REFERRING PHYSICIAN: PAUL CALLES MD DATE OF SERVICE: 08/03/19 Discharge Plan Patient Name: TOMASZ SIDDIQI Facility: [facility]:[place] : 1950 Planned Disposition: Home Anticipated Discharge Date: Discharge Date: Expected LOS: Initial Reviewer: [email or web address] Initial Review Date: 07/07/2019 Generated: 08/03/19 2:26 pm DCP- Discharge Planning Updated by [email or web address]: Graciela Eugene on 07/09/19 10:[address] Patient Name: TOMASZ SIDDIQI Admission Status: Elective Accout number: [id number] Admission Date: 07-07-2019 : 1950 Admission Diagnosis: Attending: PAUL CALIX Current LOS: 2 Anticipated DC Date: Planned Disposition: Home Primary Insurance: MEDICARE A & B Discharge Planning Comments: CM met with patient to complete initial dc planning assessment. CM educated patient on the CM role and verbal consent given by patient to complete assessment. Patient lives at home with his spouse where he is independent with his care. At discharge patient plans to return home and feels this is a safe discharge. CM discussed availability of home health, rehab services, and medical equipment. He has a concentrator at home and nebulizer along with portable O2. All from [facility]. He wears O2 at night and PRN. He did ask about a portable concentrator where he didn't have to carry his portable tanks. I will call [facility] and see if that would be an option for him. Patient denied known discharge needs at this time. CM will continue to follow and will assist as needed with dc plans/needs. Commercial Underwriter: Graciela Eugene DCPIA - Discharge Planning Initial Assessment Updated by [id number]: Graciela Eugene on 07/09/19 11:53 am * Is the patient Alert and Oriented? Yes * How many steps to enter\exit or inside your home? * PCP SHOSHANA * Pharmacy [facility] * Preadmission Environment Home with Family * ADLs Independent * Equipment Nebulizer Other Oxygen * Other Equipment CONCENTRATOR * List name and contact numbers for known caregivers / representatives who currently or will assist patient after discharge: ARIEL () [phone] * Verbal permission to speak to the caregivers and representatives has been obtained from the patient. N/A * Community resources currently utilized None * Additional services required to return to the preadmission environment? No * Can the patient safely return to the preadmission environment? Yes * Has this patient been hospitalized within the prior 30 days at any hospital? No External Providers External Provider: [facility] Next Contact Date: Service Request Date: Service Type: Resolution: Reviewer: Comments: Coverage Notice Reviewer: [id number] Sahara Eugene Notice Issued Date-Time: 07/09/2019 9:30 Notice Type: Patient Choice Letter Notice Delivered To: Patient Relationship to Patient: Geophysics Teacher Name: Delivery Method: HAND - Hand Delivered Cristal Days: Prior Verbal Notification: Recipient Understood Notice: Yes Recipient Signature: Yes Med Rec Note Co-signed by Attending: Coverage Notice Comment: aniya to continue to use [facility] for o2 needs Last DP export: 07/09/19 10:57 am Patient Name: TOMASZ SIDDIQI Page 13583 at 1326 All edits/amendments must be made on the electronic document DICTATION DATE: 08/03/19 1326 CHEMICAL ENGINEER: JAQUAN 08/03/19 1326 RPT#: [id number] DC DATE: STATUS: ADM IN [facility] [address] [place] [address] END OF REPORT
--- NOTE | 2019-08-03 13:58 | NUR ---
ATTEMPTED TO MAKE F/U APPINTMENT WITH DR VINSON X2. DR LANIER OFFICE KEPT GOING TO VOICE MAIL. EXPLAINED THIS TO THE PT AND EXPLAINED THEY NEED TO MAKE F/U APPINTMENT.
--- NOTE | 2019-08-03 14:56 | NUR ---
PT DC INSTRUCTIONS WENT OVER WITH THE PT. MIDLINE DC'D WITH THE CATHETER TIP INTACT. DRESSING C/D/I. PT AND DENY ANY QUESTION. WILL CONT POC.
--- NOTE | 2019-08-03 15:14 | MORECARE ---
CASE MANAGEMENT DISCHARGE SUMMARY PATIENT: TOMASZ SIDDIQI UNIT: [id number] ADM DATE: 07/07/19 AGE: 69 : 50 SEX: M ROOM/BED: D.[facility] AUTHOR: ZHANEDOC PHYSICIAN: REFERRING PHYSICIAN: PAUL CALLES MD DATE OF SERVICE: 08/03/19 Discharge Plan Patient Name: TOMASZ SIDDIQI Facility: [facility]:[place] : 1950 Planned Disposition: Home Anticipated Discharge Date: Discharge Date: 08/03/2019 Expected LOS: Initial Reviewer: [email or web address] Initial Review Date: 07/07/2019 Generated: 08/03/19 4:14 pm Comments DCP- Discharge Planning Updated by [email or web address]: Marni Ritchie on 08/03/19 2:[address] Patient Name: TOMASZ SIDDIQI Encounter No: [id number] : 1950 Primary Insurance: MEDICARE A & B Anticipated DC Date: Planned Disposition: Home External Planned Provider: : [facility] DCP follow-up note: Patient and family in agreement with discharge plan. ANIYA signed for [facility]. [facility] will be out to admit patient 08/04/19. D/C IMM signed 08/03/19 @ 1135. Case management will follow and assist as needed. Marni Ritchie DCP- Discharge Planning Updated by [email or web address]: Graciela Eugene on 07/09/19 10:[address] Patient Name: TOMASZ SIDDIQI Admission Status: Elective Accout number: [id number] Admission Date: 07-07-2019 : 1950 Admission Diagnosis: Attending: PAUL CALIX Current LOS: 2 Anticipated DC Date: Planned Disposition: Home Primary Insurance: MEDICARE A & B Discharge Planning Comments: CM met with patient to complete initial dc planning assessment. CM educated patient on the CM role and verbal consent given by patient to complete assessment. Patient lives at home with his spouse where he is independent with his care. At discharge patient plans to return home and feels this is a safe discharge. CM discussed availability of home health, rehab services, and medical equipment. He has a concentrator at home and nebulizer along with portable O2. All from [facility]. He wears O2 at night and PRN. He did ask about a portable concentrator where he didn't have to carry his portable tanks. I will call [facility] and see if that would be an option for him. Patient denied known discharge needs at this time. CM will continue to follow and will assist as needed with dc plans/needs. Icu Nurse: Graciela Eugene DCPIA - Discharge Planning Initial Assessment Updated by [email or web address]: Graciela Eugene on 07/09/19 11:53 am * Is the patient Alert and Oriented? Yes * How many steps to enter\exit or inside your home? * PCP SHOSHANA * Pharmacy [facility] [address] * Preadmission Environment Home with Family * ADLs Independent * Equipment Nebulizer Other Oxygen * Other Equipment CONCENTRATOR * List name and contact numbers for known caregivers / representatives who currently or will assist patient after discharge: ARIEL () [phone] * Verbal permission to speak to the caregivers and representatives has been obtained from the patient. N/A * Community resources currently utilized None * Additional services required to return to the preadmission environment? No * Can the patient safely return to the preadmission environment? Yes * Has this patient been hospitalized within the prior 30 days at any hospital? No Coverage Notice Reviewer: [id number] - Graicela Eugene Notice Issued Date-Time: 07/09/2019 9:30 Notice Type: Patient Choice Letter Notice Delivered To: Patient Relationship to Patient: Benzol Operator Name: Delivery Method: HAND - Hand Delivered Cristal Days: Prior Verbal Notification: Recipient Understood Notice: Yes Recipient Signature: Yes Med Rec Note Co-signed by Attending: Coverage Notice Comment: aniya to continue to use [facility] for o2 needs Reviewer: [id number] Sahara Ritchie Notice Issued Date-Time: 08/03/2019 11:35 Notice Type: IM Discharge Notice Notice Delivered To: Patient Relationship to Patient: Self Benzol Operator Name: Delivery Method: HAND - Hand Delivered Cristal Days: Prior Verbal Notification: Recipient Understood Notice: Yes Recipient Signature: Yes Med Rec Note Co-signed by Attending: Coverage Notice Comment: Reviewer: [email or web address] Sahara Ritchie Notice Issued Date-Time: 08/03/2019 12:45 Notice Type: Patient Choice Letter Notice Delivered To: Patient Relationship to Patient: Self Benzol Operator Name: Delivery Method: HAND - Hand Delivered Cristal Days: Prior Verbal Notification: Recipient Understood Notice: Yes Recipient Signature: Yes Med Rec Note Co-signed by Attending: Coverage Notice Comment: ANIYA SIGNED FOR [facility] Last DP export: 08/03/19 12:26 pm Patient Name: TOMASZ SIDDIQI Page 09142 at 1514 All edits/amendments must be made on the electronic document DICTATION DATE: 08/03/19 1514 OUTSIDE SALES: JAQUAN 08/03/19 1514 RPT#: [id number] DC DATE:08/03/19 STATUS: DIS IN [facility] [address] [place] [address] END OF REPORT
== END 2019-08-03 14:58 | disposition home health service (06) | DRG 163 ==
LOC: D.ER 07:24 → D.MS 07:46 → D.CVICU 07:46
PROVIDERS: Family Medicine; Internal Medicine Nephrology; Internal Medicine Pulmonary Disease; Radiology Diagnostic Radiology; Radiology Vascular & Interventional Radiology; Thoracic Surgery (Cardiothoracic Vascular Surgery); ADMIT Family Medicine Adult Medicine; ATTEND Family Medicine Adult Medicine
PROC: 0W9B30Z Drainage of Left Pleural Cavity with Drainage Device, Percutaneous Approach (ICD-10-PCS; principal; 2019-07-07 07:50)
PROC: 0W2BX0Z Change Drainage Device in Left Pleural Cavity, External Approach (ICD-10-PCS; 2019-07-09)
PROC: 05HY33Z Insertion of Infusion Device into Upper Vein, Percutaneous Approach (ICD-10-PCS; 2019-07-10)
PROC: 0BTJ4ZZ Resection of Left Lower Lung Lobe, Percutaneous Endoscopic Approach (ICD-10-PCS; 2019-07-13)
PROC: 0B5P0ZZ Destruction of Left Pleura, Open Approach (ICD-10-PCS; 2019-07-13)
PROC: 0B5N0ZZ Destruction of Right Pleura, Open Approach (ICD-10-PCS; 2019-07-17)
PROC: 0W9B30Z Drainage of Left Pleural Cavity with Drainage Device, Percutaneous Approach (ICD-10-PCS; 2019-07-20)
DX: J93.0 Spontaneous tension pneumothorax (principal); J96.21 Acute and chronic respiratory failure with hypoxia; R63.4 Abnormal weight loss; Z68.23 Body mass index [BMI] 23.0-23.9, adult; J84.112 Idiopathic pulmonary fibrosis; E78.00 Pure hypercholesterolemia, unspecified; G47.33 Obstructive sleep apnea (adult) (pediatric); I25.119 Atherosclerotic heart disease of native coronary artery with unspecified angina pectoris; K21.9 Gastro-esophageal reflux disease without esophagitis; M19.90 Unspecified osteoarthritis, unspecified site; R59.0 Localized enlarged lymph nodes; I10 Essential (primary) hypertension; G47.61 Periodic limb movement disorder; J84.10 Pulmonary fibrosis, unspecified; J30.9 Allergic rhinitis, unspecified; J43.9 Emphysema, unspecified; R53.81 Other malaise; Z72.89 Other problems related to lifestyle; G89.29 Other chronic pain

== ENCOUNTER → 2019-08-05 09:16 | Outpatient (CLI) | payer MEDICARE, BC ==
[2019-07-10 10:09] VITALS: BMI 23.6
[~2019-08-05 09:16] MED LIST changes: +ALBUTEROL SULF8.5 GM INH; +AZELASTINE137 MCG/0. NASAL; +IMODIUM2 MG PO; +IPRAT-ALBUT 0.5-3 ML UPD; +LEVOFLOXACIN500 MG PO; +LOPRESSOR25 MG PO; +MIRAPEX0.25 MG PO; +MUCINEX DM ER1 EAC1 PO; +OFEV PO; +PERCOCET 5-3251 TAB PO; +POLY HIST FORTE PO; +SINGULAIR10 MG PO; +ZYRTEC10 MG PO; +[UNRECOGNIZED DRUG - OTHER]
== END | disposition home or self-care (01) ==
LOC: D.RAD 09:16
PROVIDERS: ATTEND Thoracic Surgery (Cardiothoracic Vascular Surgery)
DX: J18.9 Pneumonia, unspecified organism (principal)

== ENCOUNTER → 2019-08-07 10:22 | Outpatient (CLI) | payer MEDICARE, BC ==
[2019-07-10 10:09] VITALS: BMI 23.6
== END | disposition home or self-care (01) ==
LOC: D.RAD 10:22
PROVIDERS: ATTEND Thoracic Surgery (Cardiothoracic Vascular Surgery)
DX: J90 Pleural effusion, not elsewhere classified (principal)

== ENCOUNTER 2019-08-12 09:19 | Inpatient (IN) | payer MEDICARE, BC ==
[2019-08-12] VITALS (42 sets, daily range): BP systolic 64–116; BP diastolic 51–90
[~2019-08-12] VITALS: Ht 177.8 cm; Wt 88.2 kg
--- NOTE | 2019-08-12 10:00 | NUR ---
soft wrist restraints appled
[2019-08-12 10:09] LABS: BASOPHILS 0.2 % (0-2); EOSINOPHILS 0.1 % (0-7); HEMOGLOBIN 12.7 g/dL (13.5-17.5); IMMATURE GRANULOCYTES 2.3 % (0-5); LYMPHOCYTES 4.2 % (15-50); MCH 31.7 pg (26.0-34.0); MCHC 33.4 g/dL (31.0-37.0); MCV 94.8 fL (80.0-100.0); MEAN PLATELET VOLUME 8.8 fL (7.4-10.4); MONOCYTES 6.9 % (2-11); NEUTROPHILS 86.3 % (40-80); PLATELET COUNT 476 10x3/uL (130-400); RBC 4.01 10x6/uL (4.20-6.10); RDW 14.9 % (11.5-14.5); WBC 18.5 10x3/uL (4.8-10.8)
[2019-08-12 10:18] LABS: APTT 29.1 SECONDS (22.8-39.4); INR 1.15 (0.85-1.17); PROTIME 14.7 SECONDS (11.6-15.0)
[2019-08-12 10:19] LABS: CALC OSMOLALITY 273 mosm/kg (275-300); CALCIUM 9.4 mg/dL (8.5-10.1); CARBON DIOXIDE 23.6 mmol/L (21.0-32.0); CHLORIDE - SERUM 97 mmol/L (98-107); CREATININE - SERUM 0.7 mg/dL (0.6-1.3); GLUCOSE 153 mg/dL (74-106); POTASSIUM - SERUM 5.1 mmol/L (3.5-5.1); SODIUM 135 mmol/L (136-145); UREA NITROGEN 15 mg/dL (7-18); eGFR NON AFRICAN AMERICAN > 90 mL/min (90-120)
--- NOTE | 2019-08-12 10:30 | NUR ---
propofol started for sedation for intubation
--- NOTE | 2019-08-12 10:30 | NUR ---
levophed started. will titrate for pt needs
[2019-08-12 10:45] LABS: ALBUMIN 2.2 g/dL (3.4-5.0); ALKALINE PHOSPHATASE 164 U/L (30-120); ALT (SGPT) 260 U/L (10-68); BILIRUBIN - TOTAL 0.53 mg/dL (0.2-1.3); CKMB 3.1 U/L (0.0-3.6); CREATINE KINASE 72 UL (21-232); MAGNESIUM - SERUM 1.7 mg/dL (1.8-2.4); PRO BNP 5389 pg/mL (0-125); PROTEIN - SERUM 7.2 g/dL (6.4-8.2)
[2019-08-12 10:55] LABS: TROPONIN-I 0.138 ng/mL (0.000-0.060)
--- NOTE | 2019-08-12 12:29 | NUR ---
1230 PT HAS RECEIVED 2400 MLS BOLUS'S TO MEET SEPSIS PROTOCOL.
--- NOTE | 2019-08-12 12:34 | NUR ---
PT HAS 20 G IV TO R FOREARM PLACED BY EMS 20 G IV TO R HAND PLACED BY ER 20 G IV L CHEST PLACED BY ER STAFF
--- NOTE | 2019-08-12 12:59 | NUR ---
pt intubated with 20 etomidate and 100 of succs. with an 8.[address] reese
[2019-08-12 13:06] LABS: BILIRUBIN NEGATIVE (NEGATIVE); GLUCOSE NEGATIVE (NEGATIVE); KETONE NEGATIVE (NEGATIVE); NITRITE NEGATIVE (NEGATIVE); UROBILINOGEN NORMAL (NORMAL)
[2019-08-12 13:07] LABS: AMORPHOUS SEDIMENT >1+ /lpf (NONE SEEN); BACTERIA FEW /hpf (NEGATIVE); EPITHELIAL CELLS OCC /hpf (0-5); RED CELLS - URINE OCC /hpf (0-5); WHITE CELLS - URINE OCC /hpf (NEGATIVE)
--- NOTE | 2019-08-12 13:23 | NUR ---
ALERTED ALEJANDRO'S NURSE OF CONSULT
--- NOTE | 2019-08-12 13:30 | NUR ---
PATIENT ARRIVED TO UNIT
--- NOTE | 2019-08-12 13:30 | NUR ---
patient intubated unable to obtain srs
--- NOTE | 2019-08-12 13:34 | NUR ---
maxipime stopped at 1300
--- NOTE | 2019-08-12 16:31 | NUR ---
dr nice at bedside
--- NOTE | 2019-08-12 16:31 | NUR ---
dr pritchard at bedside. chest tube changed to pleur vac
--- NOTE | 2019-08-12 19:22 | NUR ---
REPORT RECEIVED, SHIFT ASSESSMENT COMPLETED PER FLOW SHEET, SEE FOR DETAILS. BP LOW, SYSTOLIC NOTED 70'S-80'S, HR 120'S-130'S, PATIENT MAXED OUT ON LEVOPHED, INFORMED BY DAY SHIFT RN Y. LOVE THAT PHYSICIANS ARE AWARE AND THAT "THEY ARE OK WITH BP BEING LOW." AND THAT "THEY DID NOT WANT TO ADD ANY OTHER VASOPRESSORS" NOTED THAT PATIENT HAS NO MOTOR OR EYE OPENING RESPONSE DIPRIVAN IS INFUSING AT 75 MCG/KG/MIN AND FENTANYL INFUSING AT 200 MCG/HR INFORMED BY DAY SHIFT RN Y. LOVE THAT BECAUSE DIPRIVAN WAS INEFFECTIVE AT 75 MCG/KG/MIN DR. BA ADDED FENTANYL BECAUSE "HE WANTS PATIENT SEDATED AND RESTING ON VENTILATOR" INFORMED THAT DR. BA DOES NOT WANT SEDATION VACATIONS. PEDAL PULSES ABSENT, RN Y. LOVE STATED SHE WILL CALL DR. CALABRESE.
--- NOTE | 2019-08-12 19:28 | NUR ---
1630 patient bp still dropping on max levophed. arlet at bedside. asked for pressor, new order of 2 l fluid bolus
--- NOTE | 2019-08-12 19:38 | NUR ---
CALLED RT FOR ABG AND PHARMACY TO OBTAIN [place]-SYNEPHRINE DRIP.
--- NOTE | 2019-08-12 20:05 | NUR ---
CALLED AND SPOKE TO DR. CALABRESE TO UPDATE HIM ON PATIENT'S STATUS, DR. CALABRESE STATED HE WILL COME TO ROOM TO SEE THE PATIENT. 2010 DR. CALABRESE AT BEDSIDE, UPDATED HIM ON PATIENT'S STATUS, REVIEWED RECENT BLOOD GAS, VENTILATOR SETTINGS, VITAL SIGNS, IV DRIPS, DR. CALABRESE AWARE OF ABSENT PEDAL PULSES, NEW ORDERS RECEIVED-SEE ORDERS FOR DETAILS. DR. CALABRESE OK WITH BLOOD PRESSURE MEAN OF 55 OR HIGHER.
--- NOTE | 2019-08-12 21:22 | NUR ---
FAMILY AT BEDSIDE, UPDATE GIVEN, QUESTIONS ANSWERED. PATIENT SEDATED ON VENTILATOR, WILL CONTINUE TO MONITOR.
[2019-08-12 22:38] LABS: ANION GAP 9.2 mmol/L (8-16); CALCIUM 8.8 mg/dL (8.5-10.1); CARBON DIOXIDE 29.3 mmol/L (21.0-32.0); POTASSIUM - SERUM 5.5 mmol/L (3.5-5.1)
[2019-08-12 22:40] LABS: CREATININE - SERUM 1.2 mg/dL (0.6-1.3)
--- NOTE | 2019-08-12 23:03 | NUR ---
REASSESSMENT COMPLETED PER FLOW SHEET, SEE FOR DETAILS.
[2019-08-13] VITALS (84 sets, daily range): BP systolic 81–118; BP diastolic 58–85; BMI 23.5
--- NOTE | 2019-08-13 01:00 | NUR ---
NO ACUTE DISTRESS AT THIS TIME, WILL CONTINUE TO MONITOR.
--- NOTE | 2019-08-13 02:15 | NUR ---
NO MOTOR OR EYE OPENING RESPONSE NOTED DESPITE DECREASING SEDATION, FENTANYL DECREASED TO 150 MCG/HR AND DIPRIVAN DECREASED TO 15 MCG/KG/MIN. 0240 RR 18-20, BREATHING IRREGULAR, PATIENT STILL HAS NO MOTOR OR EYE OPENING RESPONSE, FENTANYL INCREASED BACK TO 200 MCG/HR, AFTER INTERVENTION RR DOWN TO 16 AND BREATHING REGULAR.
[2019-08-13 04:20] LABS: HEMATOCRIT 34.4 % (42.0-54.0); HEMOGLOBIN 10.9 g/dL (13.5-17.5); MCH 32.1 pg (26.0-34.0); MCHC 31.7 g/dL (31.0-37.0); MEAN PLATELET VOLUME 9.2 fL (7.4-10.4); PLATELET COUNT 497 10x3/uL (130-400); RDW 15.8 % (11.5-14.5); WBC 15.6 10x3/uL (4.8-10.8)
[2019-08-13 04:24] LABS: MCV 101.2 fL (80.0-100.0)
--- NOTE | 2019-08-13 04:33 | NUR ---
PAGED PATRIC IYER TO INFORM HIM OF LAB VALUES AND UPDATE HIM ON PATIENT'S STATUS.
--- NOTE | 2019-08-13 04:35 | NUR ---
PATRIC IYER RETURNED CALL, UPDATED HIM ON PATIENT'S STATUS, REVIEWED VS, I&O, LAB RESULTS, IV DRIPS AND INFORMED HIM THAT PATIENT HAS NO MOTOR OR EYE OPENING RESPONSE DESPITE SEDATION BEING DECREASED, INFORMED HIM THAT RR DID COME UP TO 18-20 WHEN FENTANYL WAS DECREASED BUT BECAUSE PATIENT'S BREATHING BECAME IRREGULAR, FENTANYL RATE WAS INCREASED BACK TO 200 MCG/HR, NEW ORDERS RECEIVED TO INFORM RT TO INCREASE RATE ON VENTILATOR.
[2019-08-13 04:45] LABS: LYMPHOCYTES 13 % (15-50); MONOCYTES 2 % (2-11); NEUTROPHILS 85 % (40-80); PLATELET ESTIMATE INCREASED
[2019-08-13 04:51] LABS: ALBUMIN 2.1 g/dL (3.4-5.0); ANION GAP 10.4 mmol/L (8-16); BILIRUBIN - TOTAL 0.26 mg/dL (0.2-1.3); CALCIUM 8.8 mg/dL (8.5-10.1); CREATININE - SERUM 1.2 mg/dL (0.6-1.3); POTASSIUM - SERUM 5.4 mmol/L (3.5-5.1)
--- NOTE | 2019-08-13 05:00 | NUR ---
NO ACUTE CHANGES NOTED, WILL CONTINUE TO MONITOR.
--- NOTE | 2019-08-13 07:00 | NUR ---
RECEIVED BEDSIDE REPORT ON PATIENT AND ASSUMED CARE. PATIENT SEDATED ON VENT, RESPONDS TO VERBAL STIMULI MOVING ALL EXTREMITIES, PUPILS ARE 2 MM AND BRISK, PEARR, RESTRAINTS IN PLACE, RADIAL PULSES PALPABLE +2, LEFT AND RIGHT DP AND PT PULSES WITH POSITIVE FLOW ON DOPPLER. CORBETT CATH IN PLACE WITH CLEAR YELLOW UOP NOTED. LEFT CHEST TUBE TO WATER SEAL WITH NO AIR LEAK NOTED. BBS - CLEAR AND EQUAL, DIMINISHED IN THE BASES. VENT SETTINGS ARE AC - 20, TV - 500, FIO2 - 40%, PEEP - 4. CM - ST RRR, NO ECTOPY NOTED. IV 20 GA TO RIGHT SHOULDER, IV 20 LEFT FA AND 20 GA LEFT HAND INFUSING WITHOUT S/S INFILTRATION. LEVOPHED AT 10 MCG/MIN (18.8 ML/HR), NEOSYNEPHRINE AT 30 MCG/MIN (22.5 ML/HR), NS AT 10 ML/HR, FENTANYL AT 200 M CG/HR (4 ML/HR) AND PROPOFOL AT 15 MCG/KG/MIN (5.4 ML/HR). HEAD TO TOE ASSESSMENT COMPLETED.
--- NOTE | 2019-08-13 08:11 | NUR ---
PATIENTS AND DAUGHTER AT ROOM UPDATED AND QUESTIONS ANSWERED.
--- NOTE | 2019-08-13 08:57 | NUR ---
RADIOLOGIST CALLED, OGT IS IN DISTAL ESPOHAGEUS NEEDS TO ADVANCE APPROXIMATELY 6 CM.
--- NOTE | 2019-08-13 09:06 | NUR ---
OGT TUBE ADVANCED APPROXIMATELY 3 INCHES AND PLACEMENT VERIFIED VIA ASCULTATION. PATIENT TURNED AND REPOSITIONED IN BED. VSS.
--- NOTE | 2019-08-13 09:16 | NUR ---
DR. BA AT ROOM UPDATED AND EXAMINES PATIENT. VENT SETTINGS CHANGED TO AC - 25, TV - 450, PEEP 4 AND FIO2 40%.
--- NOTE | 2019-08-13 10:20 | NUR ---
Bedside report taken and patient care assumed at this time.
--- NOTE | 2019-08-13 12:32 | NUR ---
Family at bedside. Patient resting comfortably on the vent. No obvious signs of distress noted. VSS. Will continue to monitor.
--- NOTE | 2019-08-13 13:52 | NUR ---
Repositioned for patient comfort. Bed locked and in low position. VSS. Will continue to monitor.
--- NOTE | 2019-08-13 18:09 | MORECARE ---
CASE MANAGEMENT DISCHARGE SUMMARY PATIENT: TOMASZ SIDDIQI UNIT: [id number] ADM DATE: 08/12/19 AGE: 69 : 50 SEX: M ROOM/BED: D.2314 AUTHOR: KERI PHELAN PHYSICIAN: REFERRING PHYSICIAN: JADE CALABRESE MD DATE OF SERVICE: 08/13/19 Discharge Plan Patient Name: TOMASZ SIDDIQI Facility: [facility]:[place] : 1950 Planned Disposition: Home with Home Health Anticipated Discharge Date: Discharge Date: Expected LOS: Initial Reviewer: [email or web address] Initial Review Date: 08/12/2019 Generated: 08/13/19 7:09 pm DCPIA - Discharge Planning Initial Assessment Updated by [id number]: Marni Ritchie on 08/13/19 6:06 pm * Is the patient Alert and Oriented? Yes * PCP SHOSHANA * Pharmacy [address] * Preadmission Environment Home with Family * ADLs Independent * Other Equipment HOME / PORTABLE 02, NEBULIZER * List name and contact numbers for known caregivers / representatives who currently or will assist patient after discharge: ARIEL SIDDIQI - SPOUSE - [phone] * Verbal permission to speak to the caregivers and representatives has been obtained from the patient. Yes * Community resources currently utilized Home Health * Please name any agencies selected above. [facility] * Additional services required to return to the preadmission environment? No * Can the patient safely return to the preadmission environment? Yes * Has this patient been hospitalized within the prior 30 days at any hospital? Yes Coverage Notice Reviewer: [id number] - Marni Ritchie Notice Issued Date-Time: 08/13/2019 17:00 Notice Type: Patient Choice Letter Notice Delivered To: Family Member Relationship to Patient: Spouse Machine Operator Name: ARIEL SIDDIQI Delivery Method: HAND - Hand Delivered Cristal Days: Prior Verbal Notification: Recipient Understood Notice: Yes Recipient Signature: Yes Med Rec Note Co-signed by Attending: Coverage Notice Comment: [facility] Patient Name: TOMASZ SIDDIQI Page 16288 at 1809 All edits/amendments must be made on the electronic document DICTATION DATE: 08/13/191808 TRAY ROOM WORKER: JAQUAN 08/13/191808 RPT#: [id number] DC DATE: STATUS: ADM IN [facility] [address] [place] [address] END OF REPORT
--- NOTE | 2019-08-13 18:17 | MORECARE ---
CASE MANAGEMENT DISCHARGE SUMMARY PATIENT: TOMASZ SIDDIQI UNIT: [id number] ADM DATE: 08/12/19 AGE: 69 : 50 SEX: M ROOM/BED: D.2314 AUTHOR: ZHANE,DOC PHYSICIAN: REFERRING PHYSICIAN: JADE CALABRESE MD DATE OF SERVICE: 08/13/19 Discharge Plan Patient Name: TOMASZ SIDDIQI Facility: [facility]:[place] : 1950 Planned Disposition: Home with Home Health Anticipated Discharge Date: Discharge Date: Expected LOS: Initial Reviewer: [id number] Initial Review Date: 08/12/2019 Generated: 08/13/19 7:17 pm Comments DCP- Discharge Planning Updated by [email or web address]: Marni Ritchie on 08/13/19 5:[address] Patient Name: TOMASZ SIDDIQI Admission Status: ER Accout number: [id number] Admission Date: 08-12-2019 : 1950 Admission Diagnosis: Attending: JADE CALABRESE Current LOS: 1 Anticipated DC Date: Planned Disposition: Home with Home Health Primary Insurance: MEDICARE A & B Discharge Planning Comments: CM met with patient's Ariel at bedside after explaining CM role and obtaining verbal consent. Patient lives at home with his Ariel where he is independent with his care and plans to return there upon discharge. Patient feels this would be a safe discharge. CM discussed availability / needs of home health and medical equipment. Patient has home / portable 02 with [facility]. Patient has Home Health with [facility] and plans to resume when discharged. [place] signed. Patient denies any discharge needs at this time. Patient states he will have his family drive him home upon discharge. CM will continue to follow and assist as needed with discharge planning / needs. Debt Collector: Marni Ritchie DCPIA - Discharge Planning Initial Assessment Updated by [id number]: Marni Ritchie on 08/13/19 6:06 pm * Is the patient Alert and Oriented? Yes * PCP SHOSHANA * Pharmacy [facility] * Preadmission Environment Home with Family * ADLs Independent * Other Equipment HOME / PORTABLE 02, NEBULIZER * List name and contact numbers for known caregivers / representatives who currently or will assist patient after discharge: ARIEL SIDDIQI - SPOUSE - [phone] * Verbal permission to speak to the caregivers and representatives has been obtained from the patient. Yes * Community resources currently utilized Home Health * Please name any agencies selected above. [facility] * Additional services required to return to the preadmission environment? No * Can the patient safely return to the preadmission environment? Yes * Has this patient been hospitalized within the prior 30 days at any hospital? Yes Coverage Notice Reviewer: [id number] Sahara Ritchie Notice Issued Date-Time: 08/13/2019 17:00 Notice Type: Patient Choice Letter Notice Delivered To: Family Member Relationship to Patient: Spouse Seal Skinner Name: ARIEL SIDDIQI Delivery Method: HAND - Hand Delivered Cristal Days: Prior Verbal Notification: Recipient Understood Notice: Yes Recipient Signature: Yes Med Rec Note Co-signed by Attending: Coverage Notice Comment: [facility] Last DP export: 08/13/19 5:09 p Patient Name: TOMASZ SIDDIQI Page 19688 at 1817 All edits/amendments must be made on the electronic document DICTATION DATE: 08/13/191816 PACKING MACHINE OPERATOR: JAQUAN 08/13/191816 RPT#: [id number] DC DATE: STATUS: ADM IN [facility] [address] [place] [address] END OF REPORT
--- NOTE | 2019-08-13 19:00 | NUR ---
REPORT REC'D, ASSUMED PT'S CARE. ASSESSMENT COMPLETED, SEE FLOWSHEETS FOR ALL FINDINGS. PT SEDATED ON VENT, CONT PRESSORS TO KEEP SBP>90. LEFT CHEST TUBE TO WATER SEAL, DRESSING C,D,I. CORBETT INTACT TO GRAVITY WITH CL/Y DRAINAGE TO BAG. ST ON CM WITH HR AT 120BPM. DOPPLER TO PP NOTED. CONT TO MONITOR.
--- NOTE | 2019-08-13 23:00 | NUR ---
REASSESSMENT COMPLETED. SEE FLOWSHEETS FOR ALL FINDINGS. PT SEDATED ON VENT, ST ON CM. NO ACUTE CHANGES NOTED IN PT'S STATUS . CONT TO MONITOR.
[2019-08-14] VITALS (80 sets, daily range): BP systolic 73–129; BP diastolic 49–91; Ht 177.8 cm; Wt 88.2 kg
--- NOTE | 2019-08-14 01:00 | NUR ---
REPOSIIONED FOR COMFORT. WAGES IN USE FOR SUPPORT. SUCTION AND MOUTH CARE PROVIDED PER VAP. CONT TO MONITOR.
--- NOTE | 2019-08-14 03:00 | NUR ---
REASSESSMENT COMPLETED. SEE FLOWSHEETS FOR ALL FINDINGS. PT SEDATED ON VENT, NO ACUTE SIGNS OF DISTRESS NOTED. ST ON CM. CONT TITRATE PRESSORS TO KEEP MAP>65. WILL CONT TO MONITOR.
[2019-08-14 03:37] LABS: BASOPHILS 0.1 % (0-2); EOSINOPHILS 0 % (0-7); HEMATOCRIT 34.1 % (42.0-54.0); HEMOGLOBIN 10.2 g/dL (13.5-17.5); IMMATURE GRANULOCYTES 2.8 % (0-5); LYMPHOCYTES 7.6 % (15-50); MCHC 29.9 g/dL (31.0-37.0); MCV 103.6 fL (80.0-100.0); MEAN PLATELET VOLUME 8.7 fL (7.4-10.4); MONOCYTES 11.6 % (2-11); NEUTROPHILS 77.9 % (40-80); PLATELET COUNT 360 10x3/uL (130-400); RBC 3.29 10x6/uL (4.20-6.10); WBC 17.5 10x3/uL (4.8-10.8)
[2019-08-14 03:48] LABS: ALBUMIN 1.8 g/dL (3.4-5.0); ALKALINE PHOSPHATASE 98 U/L (30-120); ALT (SGPT) 409 U/L (10-68); BILIRUBIN - TOTAL 0.25 mg/dL (0.2-1.3); CALCIUM 9.1 mg/dL (8.5-10.1); CARBON DIOXIDE 29.6 mmol/L (21.0-32.0); CHLORIDE - SERUM 108 mmol/L (98-107); POTASSIUM - SERUM 4.7 mmol/L (3.5-5.1); PROTEIN - SERUM 6.3 g/dL (6.4-8.2); SODIUM 142 mmol/L (136-145); eGFR NON AFRICAN AMERICAN 79 mL/min (90-120)
[2019-08-14 03:49] LABS: CALC OSMOLALITY 292 mosm/kg (275-300); GLUCOSE 138 mg/dL (74-106); UREA NITROGEN 35 mg/dL (7-18)
--- NOTE | 2019-08-14 07:00 | NUR ---
RECEIVED BEDSIDE REPORT ON PATIENT AND ASSUMED CARE. PATIENT SEDATED ON VENT, VENT SETTINGS AC - 25, TV - 450, FIO2 - 40% AND PEEP OF 4. BBS - CLEAR, DIMINISHED IN THE BASES, SPO2 - 100%, CM - HR 110, ST WITH NO ECTOPY NOTED, IV 20 GA TO LEFT SHOULDER, IV 20 GA TO RIGHT RIGHT HAND AND IV 20 GA TO RIGHT FA. NS INFUSING AT 10 ML/HR, FENTANYL AT 250 MCG/HR (5ML/HR), LEVOPHED AT 10 MCG/MIN (18.8 ML/HR), NEOSYNEPHRINE AT 40 MCG/MIN (30ML/HR) AND PROPOFOL AT 25 MCG/KG/MIN (9 ML/HR). OGT, CLAMPED, PLACEMENT VERIFIED BY ASCULTATION, LEFT CHEST TUBE, DRESSING C/D/I, TO WATER SEAL, INTERMITTENT AIR LEAK NOTED. CORBETT CATH IN PLACE, WITH CLEAR UOP NOTED. PATIENT TURNED AND REPOSITIONED IN BED. HEAD TO TOE ASSESSMENT COMPLETED.
--- NOTE | 2019-08-14 09:21 | NUR ---
PATIENT IN AFIB WITH RVR, 12 LEAD COMPLETED, HR 160S, BP 83/62 (70), DR. BA NOTIFIED ORDERS 150 MG AMIODARONE BOLUS WITH 1 MG AMIODARONE GTT TO FOLLOW BOLUS.
--- NOTE | 2019-08-14 09:48 | NUR ---
DR. BA AT ROOM UPDATED AND EXAMINES PATIENT. AMIODARONE BOLUS DOSE COMPLETED. AMIODARONE 1 MG/HR GTT STARTED AT 33.3 ML/HR FOR 6 HRS. THEN TO REDUCE TO 0.5 MG/HR.
--- NOTE | 2019-08-14 09:53 | NUR ---
Nutrition follow-up: NPO Intubared, sedated with propofol Labs reviewed Wt: 164# OGT in place; clamped at this time Will start [facility] @ 25 ml/hr with gradual increase to goal rate of 55 ml/hr per Dr. Kaur. RDN following.
--- NOTE | 2019-08-14 10:19 | NUR ---
DR. CALABRESE AT ROOM UPDATED AND EXAMINES PATIENT. TO GIVE [address] BILLINGSLEY NOTIFIED OF AFIB RVR ADN REQUESTS CARDIOLOGY CONSULT.
--- NOTE | 2019-08-14 11:00 | NUR ---
REASSESSMENT COMPLETED, REBOLUSED [address] CALABRESE[address] LEVOPHED GTT INCREASED TO 12 MCG/MIN AND NEOSYNEPHRINE GTT INCREASED TO 50 MCG/MIN, BP 73/56 (65). BP AFTER INCREASE NOW 93/49 (65). EMPTIED 150 ML OF CLEAR YELLOW UOP, PATIENT IN ISOLATION FOR PREVIOUS VRE IN URINE, REPEAT UC/UA OBTAINED AND SENT TO LAB. NS BOLUS 500 ML COMPLETED. PATIENT TURNED AND REPOSTIONED IN BED.
[2019-08-14 11:38] LABS: NITRITE NEGATIVE (NEGATIVE); SPECIFIC GRAVITY 1.015 (1.005-1.020)
[2019-08-14 11:39] LABS: BACTERIA FEW /hpf (NEGATIVE); BILIRUBIN NEGATIVE (NEGATIVE); EPITHELIAL CELLS 0-5 /hpf (0-5); GLUCOSE NEGATIVE (NEGATIVE); KETONE SMALL mg/dL (NEGATIVE); RED CELLS - URINE 0-5 /hpf (0-5); UROBILINOGEN NORMAL (NORMAL); WHITE CELLS - URINE RARE /hpf (NEGATIVE)
[2019-08-14 11:40] LABS: EPITHELIAL CELL CAST RARE /lpf (NONE SEEN); GRANULAR CAST OCC /lpf (NONE SEEN)
--- NOTE | 2019-08-14 11:42 | NUR ---
SPOKE TO MISTI GIRON APRN WITH CARDIOLOGY REGARDING CONSULT, ADVISED TO GIVE 0.5 MG OF DIGIOXIN FOR RATE CONTROL AND TO OBTAIN AN ECHOCARDIOGRAM.
--- NOTE | 2019-08-14 12:32 | NUR ---
DR. CALABRESE AT ROOM UPDATED AND ORDERS 500 ML NS BOLUS.
--- NOTE | 2019-08-14 14:38 | NUR ---
DR. BA AT ROOM TO PLACE CVL, CONSENT ON CHART SIGNED BY , TIMEOUT CONDUCTED. RT AT ROOM FOR VENT MANAGEMENT DURING PROCEDURE.
--- NOTE | 2019-08-14 14:53 | NUR ---
DR. BA PLACES CVL TO LEFT IJ, UTILZING ULTRASOUND, POSITIVE BLOOD RETURN AND FLUSHES EASILY. CXR ORDERED TO CONFIRM PLACEMENT.
--- NOTE | 2019-08-14 15:11 | NUR ---
REASSESSMENT COMPLETED. VSS. TURNED AND REPOSITIONED.
--- NOTE | 2019-08-14 15:52 | NUR ---
PER DR. BA OK TO USE CVL, IT HAS COILED BACK INTO THE SUBCLAVIAN BUT IS OK TO USE. STATES WILL REPLACE TOMORROW.
--- NOTE | 2019-08-14 17:05 | NUR ---
PATIENT TURNED AND REPOSITIONED IN BED. VSS. TUBE FEEDING PULMOCARE STARTED PER ORDER AT 25 ML/HR WITH 100 ML H2O FLUSHES Q4HRS. TO INCREASE IF RESIDUALS ARE LESS THAN 150 ML EVERY 6 HRS BY 10 ML TO A GOAL OF 55 ML/HR.
--- NOTE | 2019-08-14 21:15 | NUR ---
NO VISITORS PRESENT AT THIS TIME, PT REMAINS IN A-FIB ON CM, ORAL CARE AND SUCTIONING COMPLETED, REPOSITIONED FOR COMFORT WITH FOAM WEDGES, VSS.
[2019-08-15] VITALS (96 sets, daily range): BP systolic 86–131; BP diastolic 55–74
--- NOTE | 2019-08-15 01:40 | NUR ---
PT POSITIONED FOR COMFORT SUPPORTED WITH PILLOWS, ORAL CARE AND SUCTIONING DONE, CONT TO MONITOR.
[2019-08-15 05:10] LABS: BASOPHILS 0.2 % (0-2); EOSINOPHILS 0.3 % (0-7); HEMATOCRIT 32.8 % (42.0-54.0); HEMOGLOBIN 9.9 g/dL (13.5-17.5); IMMATURE GRANULOCYTES 2.6 % (0-5); LYMPHOCYTES 9.7 % (15-50); MCH 30.8 pg (26.0-34.0); MCHC 30.2 g/dL (31.0-37.0); MCV 102.2 fL (80.0-100.0); MEAN PLATELET VOLUME 9.1 fL (7.4-10.4); MONOCYTES 9.4 % (2-11); NEUTROPHILS 77.8 % (40-80); PLATELET COUNT 342 10x3/uL (130-400); RBC 3.21 10x6/uL (4.20-6.10); RDW 16.2 % (11.5-14.5); WBC 13.7 10x3/uL (4.8-10.8)
[2019-08-15 05:35] LABS: ALBUMIN 1.6 g/dL (3.4-5.0); ALKALINE PHOSPHATASE 98 U/L (30-120); ALT (SGPT) 358 U/L (10-68); BILIRUBIN - TOTAL 0.28 mg/dL (0.2-1.3); CALCIUM 8.6 mg/dL (8.5-10.1); CARBON DIOXIDE 29.2 mmol/L (21.0-32.0); CHLORIDE - SERUM 110 mmol/L (98-107); GLUCOSE 181 mg/dL (74-106); PROTEIN - SERUM 6.1 g/dL (6.4-8.2); SODIUM 144 mmol/L (136-145); TRIGLYCERIDE 91 mg/dL (30-200)
[2019-08-15 05:42] LABS: CALC OSMOLALITY 295 mosm/kg (275-300); CREATININE - SERUM 0.7 mg/dL (0.6-1.3); POTASSIUM - SERUM 3.9 mmol/L (3.5-5.1); UREA NITROGEN 25 mg/dL (7-18); eGFR NON AFRICAN AMERICAN > 90 mL/min (90-120)
--- NOTE | 2019-08-15 05:42 | NUR ---
AM LABS REVIEWED, NOTHING TO TREAT PER ELECTROLYTE PROTOCOL.
--- NOTE | 2019-08-15 07:22 | NUR ---
UP IN BED ON VENT AT THIS TIME. VSS. NO ACUTE DISTRESS NOTED. PT TURNED Q2H. ORAL CARE PROVIDED Q2H. WILL CONTINUE PLAN OF CARE.
--- NOTE | 2019-08-15 09:23 | NUR ---
FAMILY AT BEDSIDE AT THIS TIME. VSS. QUESTIONS AND CONCERNS ADRESSED. NOTED HEART RATE IS 80S SINUS. NO ACUTE DISTRESS NOTED. WILL CONTINUE PLAN OF CARE.
--- NOTE | 2019-08-15 11:24 | NUR ---
TUBE FEED RESIDUALS NOTED AT 15ML. PULMOCARE RATE INCREASED TO 55ML/HR WHICH IS GOAL RATE. VSS. WILL CONTINUE PLAN OF CARE.
--- NOTE | 2019-08-15 13:25 | NUR ---
NO ACUTE DISTRESS NOTED. NO CHANGE. VSS. FAMILY AT BEDSIDE. PT TURNED Q2H. ORAL CARE PROVIDED Q2H. WILL CONTINUE PLAN OF CARE.
--- NOTE | 2019-08-15 15:15 | NUR ---
VSS. NO ACUTE DISTRESS NOTED. PT TURNED Q2H. ORAL CARE PROVIDED Q2H. NO ACUTE DISTRESS NOTED. WILL CONTINUE PLAN OF CARE.
--- NOTE | 2019-08-15 17:16 | NUR ---
NO ACUTE DISTRESS NOTED. NO CHANGE. VSS. WILL CONTINUE PLAN OF CARE.
--- NOTE | 2019-08-15 19:15 | NUR ---
RESUMED CARE OF PT, ASSESSMENT PER FLOWSHEET. PT POSITIONED FOR COMFORT SUPPORTED WITH WEDGES, ORAL CARE AND SUCTIONING PROVIDED, GTT'S PER FLOWSHEET. HR SR
--- NOTE | 2019-08-15 20:31 | NUR ---
DR BA CALLED TO CHECK PT STATUS, UPDATE GIVEN AND ALL QUESTIONS ANSWERED.
--- NOTE | 2019-08-15 23:15 | NUR ---
REASSESSMENT PER FLOWSHEET, NO ACUTE CHANGES NOTED, LEVOPHED GTT CURRENTLY AT 9 MCG, WILL CONTINUE TO TITRATE DOWN PER MD ORDER.
[2019-08-16] VITALS (33 sets, daily range): BP systolic 78–136; BP diastolic 51–78
[2019-08-16 05:11] LABS: BASOPHILS 0.2 % (0-2); EOSINOPHILS 2.4 % (0-7); HEMOGLOBIN 9.1 g/dL (13.5-17.5); IMMATURE GRANULOCYTES 3.3 % (0-5); LYMPHOCYTES 9.6 % (15-50); MCH 30.7 pg (26.0-34.0); MCHC 30.3 g/dL (31.0-37.0); MCV 101.4 fL (80.0-100.0); MEAN PLATELET VOLUME 9.1 fL (7.4-10.4); MONOCYTES 7.5 % (2-11); PLATELET COUNT 296 10x3/uL (130-400); RBC 2.96 10x6/uL (4.20-6.10); WBC 10.7 10x3/uL (4.8-10.8)
[2019-08-16 05:31] LABS: ALBUMIN 1.4 g/dL (3.4-5.0); ALKALINE PHOSPHATASE 86 U/L (30-120); BILIRUBIN - TOTAL 0.35 mg/dL (0.2-1.3); CALC OSMOLALITY 296 mosm/kg (275-300); CALCIUM 8.6 mg/dL (8.5-10.1); CHLORIDE - SERUM 111 mmol/L (98-107); CREATININE - SERUM 0.6 mg/dL (0.6-1.3); GLUCOSE 144 mg/dL (74-106); POTASSIUM - SERUM 3.5 mmol/L (3.5-5.1); PROTEIN - SERUM 5.7 g/dL (6.4-8.2); SODIUM 146 mmol/L (136-145); UREA NITROGEN 20 mg/dL (7-18); eGFR NON AFRICAN AMERICAN > 90 mL/min (90-120)
[2019-08-16 05:35] LABS: ALT (SGPT) 226 U/L (10-68)
--- NOTE | 2019-08-16 06:22 | NUR ---
NO VISITORS PRESENT AT THIS TIME, ORAL CARE AND SUCTIONING PROVIDED, VSS.
--- NOTE | 2019-08-16 08:04 | NUR ---
CHG BATH PROVIDED ALONG WITH IVON CARE AND CORBETT CARE AND TOTAL LINEN CHANGE PROVIDED. VSS. NO ACUTE DISTRESS NOTED. HEART RHYTHM SINUS 77. PT TURNED Q2H. ORAL CARE PROVIDED Q2H. OGT RESIDUAL NOTED 10 ML. WILL CONTINUE PLAN OF CARE.
--- NOTE | 2019-08-16 10:56 | NUR ---
TELEMETRY NOTED TO SHOW ST ELEVATION. EKG OBTAINED AND STATED ACUTE MO/STEMI. CARDIOLOGY PAGED, DR PETERSON STATED HE WAS ON HIS WAY TO COME SEE EKG. ALSO CARDIAC ENZYMES OBTAINED.
[2019-08-16 11:30] LABS: CKMB 0.3 U/L (0.0-3.6); CREATINE KINASE 27 UL (21-232)
[2019-08-16 11:37] LABS: TROPONIN-I 0.659 ng/mL (0.000-0.060)
--- NOTE | 2019-08-16 12:18 | NUR ---
DR PETERSON AND DR CALABRESE NOTIFIED OF EKG AND ELEVATED TROPONIN LEVELS OF 0.69 STATED TO RECHECK ENZYMES IN 3-4 HOURS AND CALL WITH RESULTS.
--- NOTE | 2019-08-16 14:52 | NUR ---
PER DR CALABRESE, TIMOTEO SCHEDULED DIGOXIN.
[2019-08-16 16:09] LABS: CKMB 0.3 U/L (0.0-3.6); CREATINE KINASE 21 UL (21-232)
[2019-08-16 16:14] LABS: TROPONIN-I 0.594 ng/mL (0.000-0.060)
--- NOTE | 2019-08-16 16:19 | NUR ---
TROPONIN LEVEL NOTED AT 0.594 WHICH IS A LOWER RESULT THAN PREVIOUS LEVEL. CARDIOLOGY PAGED TO NOTIFY. DR CALABRESE NOTIFIED.
--- NOTE | 2019-08-16 16:27 | NUR ---
REDNESS NOTED TO CHEST/FACE/ARMS. PTS STATED THIS IS NOT SOMETHING ABNORMAL FOR HIM, AND THAT HIS SKIN DOES THIS AT TIMES AT HOME WELL. DR CALABRESE NOTIFIED OF THIS AND HAS VISUALIZED SKIN, NO NEW ORDERS RECIEVED.
--- NOTE | 2019-08-16 18:08 | NUR ---
NO ACUTE DISTRESS NOTED. NO CHANGE. VSS. FAMILY AT BEDSIDE. WILL CONTINUE PLAN OF CARE.
--- NOTE | 2019-08-16 19:00 | NUR ---
REPORT RECEIVED, CARE ASSUMED. RECEIVED PATIENT IN BED, SEDATED/INTUBATED. ETT INTACT/SECURE/PATENT CONNECTED TO [facility] VENT AT ORDERED SETTINGS. OGT INTACT/SECURE/PATENT WITH TUBE FEEDING INFUSING PER ORDER. PLACEMENT VERIFIED VIA AUSCULTATION. ASSESSMENT COMPLETED PER FLOW SHEET WITH NO ACUTE DISTRESS OBSERVED. MONITORS CONNECTED TO PATIENT WITH ALARMS SET. VSS. LEFT CHEST TUBE INTACT/SECURE/PATENT DRAINING SMALL AMOUNT OF SEROUS FLUID INTO COLLECTION CHAMBER. TURNED AND POSTIONED FOR COMFORT. ORAL CARE PERFORMED.
--- NOTE | 2019-08-16 21:00 | NUR ---
SEDATED/INTUBATED. ETT INTACT/SECURE/PATENT CONNECTED TO [facility] VENT AT ORDERED SETTINGS. VSS. HOB UP 30 DEGREES
--- NOTE | 2019-08-16 22:30 | NUR ---
SPOKE WITH [employer] SUPERVISOR REGARDING MD ORDER FOR AIR OVERLAY MATTRESS FOR PT, FAXED ORDER REQUESTED AND INFORMED THAT WOUND CARE NURSE IS UNAVAILABLE TO APPROVE ORDER. INFORMATION COMMUNICATED TO PT NURSE, Aniyah LEMA RN.
--- NOTE | 2019-08-16 23:00 | NUR ---
TURNED AND REPOSITIONED, ORAL CARE GIVEN. REASSESSMENT COMPLETED PER FLOW SHEET WITH NO ACUTE DISTRESS OBSERVED. VSS. LEFT CHEST TUBE INTACT/SECURE/PATENT DRAINING SMALL AMT OF SEROUS FLUID INTO COLLECTION CHAMBER.
[2019-08-17] VITALS (24 sets, daily range): BP systolic 97–122; BP diastolic 51–70
[2019-08-17 06:11] LABS: BASOPHILS 0.1 % (0-2); EOSINOPHILS 3.6 % (0-7); HEMOGLOBIN 7.9 g/dL (13.5-17.5); IMMATURE GRANULOCYTES 1.9 % (0-5); LYMPHOCYTES 7.2 % (15-50); MCH 30.4 pg (26.0-34.0); MCHC 30.4 g/dL (31.0-37.0); MEAN PLATELET VOLUME 9.1 fL (7.4-10.4); NEUTROPHILS 78.2 % (40-80); PLATELET COUNT 239 10x3/uL (130-400); RDW 16.3 % (11.5-14.5); WBC 9.9 10x3/uL (4.8-10.8)
[2019-08-17 06:25] LABS: ALBUMIN 1.1 g/dL (3.4-5.0); ALKALINE PHOSPHATASE 79 U/L (30-120); BILIRUBIN - TOTAL 0.23 mg/dL (0.2-1.3); CALC OSMOLALITY 297 mosm/kg (275-300); CALCIUM 7.5 mg/dL (8.5-10.1); CARBON DIOXIDE 30.6 mmol/L (21.0-32.0); CHLORIDE - SERUM 112 mmol/L (98-107); CREATININE - SERUM 0.6 mg/dL (0.6-1.3); GLUCOSE 153 mg/dL (74-106); POTASSIUM - SERUM 3.3 mmol/L (3.5-5.1); PROTEIN - SERUM 5.1 g/dL (6.4-8.2); SODIUM 147 mmol/L (136-145); UREA NITROGEN 22 mg/dL (7-18); eGFR NON AFRICAN AMERICAN > 90 mL/min (90-120)
[2019-08-17 06:26] LABS: ALT (SGPT) 129 U/L (10-68)
--- NOTE | 2019-08-17 13:06 | NUR ---
Nutrition follow-up: Intubated, sedated with propofol @ 12.6 ml/hr Pulmocare infusing @ 55 ml/hr Labs reviewed Na, Cl, BUN elevated RDN increased TF flush to 150 ml Q [address] RDN following.
--- NOTE | 2019-08-17 13:30 | NUR ---
patient repositioned. call light within reach. no acute distress. will contineu to monitor
--- NOTE | 2019-08-17 19:00 | NUR ---
SHIFT ASSESSMENT COMPLETED. PT CARE ASSUMED. MONITORS ON AND WORKING, VITALS STABLE, VENT SETTINGS NOTED. CT TO SUCTION, NO LEAK NOTED. SEE FLOW SHEET FOR FURHTER DETAILS. WILL CONTINUE TO OBSERVE.
--- NOTE | 2019-08-17 21:00 | NUR ---
PT TURNED AND REPOSITIONED FOR COMFORT. ORAL CARE DONE. MONITORS ON AND WORKNG, VITALS STABLE. WILL CONTINUE TO OBSERVE.
--- NOTE | 2019-08-17 23:00 | NUR ---
PT TURNED AND REPOSITIONED FOR COMFROT, MONITORS ON AND WORKING, VITALS STABLE, SEE FLOW SHEET FOR FURTHER DETAILS. WILL CONTINUE TO OBSERVE.
[2019-08-18] VITALS (23 sets, daily range): BP systolic 96–141; BP diastolic 56–84
--- NOTE | 2019-08-18 01:00 | NUR ---
NO CHANGES, VITALS STABLE, WILL CONTINUE TO OBSERVE.
--- NOTE | 2019-08-18 03:00 | NUR ---
PT TURNED AND REPOSITIONED FOR COMFORT. MONITORS ON AND WORKING, VITALS STABLE, SEE FLOW SHEET FOR FURTHER DETAILS. WILL CONTINUE TO OBSERVE.
--- NOTE | 2019-08-18 05:00 | NUR ---
PT LYING IN BED RESTING, CT TO SUCTION, MONITORS ON AND WORKING, VITALS STABLE, WILL CONTINUE TO OBSERVE.
[2019-08-18 05:27] LABS: BASOPHILS 0.3 % (0-2); EOSINOPHILS 3.6 % (0-7); HEMATOCRIT 27.3 % (42.0-54.0); HEMOGLOBIN 8.2 g/dL (13.5-17.5); IMMATURE GRANULOCYTES 2.7 % (0-5); LYMPHOCYTES 8.3 % (15-50); MCH 30.3 pg (26.0-34.0); MCV 100.7 fL (80.0-100.0); MEAN PLATELET VOLUME 9.2 fL (7.4-10.4); MONOCYTES 10.9 % (2-11); NEUTROPHILS 74.2 % (40-80); PLATELET COUNT 225 10x3/uL (130-400); RBC 2.71 10x6/uL (4.20-6.10); RDW 16.2 % (11.5-14.5); WBC 10.6 10x3/uL (4.8-10.8)
[2019-08-18 05:44] LABS: CALC OSMOLALITY 287 mosm/kg (275-300); CALCIUM 8.2 mg/dL (8.5-10.1); CARBON DIOXIDE 31.8 mmol/L (21.0-32.0); CHLORIDE - SERUM 108 mmol/L (98-107); CREATININE - SERUM 0.7 mg/dL (0.6-1.3); GLUCOSE 155 mg/dL (74-106); SODIUM 141 mmol/L (136-145); UREA NITROGEN 23 mg/dL (7-18); eGFR NON AFRICAN AMERICAN > 90 mL/min (90-120)
[2019-08-19] VITALS (24 sets, daily range): BP systolic 96–167; BP diastolic 55–85
[2019-08-19 07:04] LABS: CALC OSMOLALITY 285 mosm/kg (275-300); CALCIUM 8.2 mg/dL (8.5-10.1); CARBON DIOXIDE 33.5 mmol/L (21.0-32.0); CHLORIDE - SERUM 107 mmol/L (98-107); GLUCOSE 134 mg/dL (74-106); MAGNESIUM - SERUM 2.1 mg/dL (1.8-2.4); PHOSPHOROUS 2.5 mg/dL (2.5-4.9); POTASSIUM - SERUM 4.3 mmol/L (3.5-5.1); SODIUM 141 mmol/L (136-145); UREA NITROGEN 22 mg/dL (7-18)
[2019-08-19 07:06] LABS: CREATININE - SERUM 0.5 mg/dL (0.6-1.3); eGFR NON AFRICAN AMERICAN > 90 mL/min (90-120)
[2019-08-19 07:28] LABS: BASOPHILS 0.4 % (0-2); EOSINOPHILS 2.8 % (0-7); HEMATOCRIT 26.9 % (42.0-54.0); IMMATURE GRANULOCYTES 2.7 % (0-5); LYMPHOCYTES 10.8 % (15-50); MCH 29.6 pg (26.0-34.0); MCHC 29.7 g/dL (31.0-37.0); MCV 99.6 fL (80.0-100.0); MONOCYTES 10.8 % (2-11); NEUTROPHILS 72.5 % (40-80); PLATELET COUNT 237 10x3/uL (130-400); RDW 16.3 % (11.5-14.5); WBC 10.5 10x3/uL (4.8-10.8)
--- NOTE | 2019-08-19 09:59 | NUR ---
Nutrition follow-up: Intubated, sedated with propofol @ 10.6 ml/hr Pulmocare @ 55 ml/hr Labs reviewed Pt tolerating TF. RDN following.
--- NOTE | 2019-08-19 19:00 | NUR ---
ASSESSMENT COMPLETE, SEE FLOWSHEET FOR ALL FINDINGS. PT INTUBATED/SEDATED. LUNG SOUNDS CRACKLES, ORAL CARE PROVIDED- THICK SECRETIONS. L CHEST TUBE INTACT TO WATERSEAL-SEROUS DRAINAGE. PT REPOSITIONED WITH PROMINENCES BRIDGED. VSS, CPOC.
--- NOTE | 2019-08-19 21:00 | NUR ---
FAMILY AT BEDSIDE, DENIES ANY QUESTIONS OR CONCERNS AT THIS TIME.
--- NOTE | 2019-08-19 23:00 | NUR ---
REASSESSMENT COMPLETE, NO NEW CHANGES AT THIS TIME. PT REPOSITIONED WITH PROMINENCES BRIDGED. ORAL CARE PROVIDED. VSS, CPOC.
[2019-08-20] VITALS (23 sets, daily range): BP systolic 98–171; BP diastolic 62–97
--- NOTE | 2019-08-20 01:00 | NUR ---
REPOSITIONED WITH PROMINENCES BRIDGED, ORAL CARE PROVIDED. VSS, CPOC.
--- NOTE | 2019-08-20 03:00 | NUR ---
REASSESSMENT COMPLETE, NO NEW CHANGES AT THIS TIME. PROMINENCES BRIDGED, ORAL CARE PROVIDED. VSS, CPOC.
--- NOTE | 2019-08-20 05:06 | NUR ---
CHG BATH AND COMPLETE LINEN CHANGE PROVIDED. PROMINENCES BRIDGED. ORAL CARE PROVIDED. CPOC.
[2019-08-20 05:54] LABS: CALC OSMOLALITY 285 mosm/kg (275-300); CALCIUM 8.4 mg/dL (8.5-10.1); CARBON DIOXIDE 33.3 mmol/L (21.0-32.0); CHLORIDE - SERUM 106 mmol/L (98-107); CREATININE - SERUM 0.6 mg/dL (0.6-1.3); GLUCOSE 134 mg/dL (74-106); POTASSIUM - SERUM 4.2 mmol/L (3.5-5.1); SODIUM 141 mmol/L (136-145); UREA NITROGEN 20 mg/dL (7-18); eGFR NON AFRICAN AMERICAN > 90 mL/min (90-120)
[2019-08-20 06:52] LABS: BASOPHILS 0.5 % (0-2); EOSINOPHILS 3.9 % (0-7); HEMATOCRIT 29.6 % (42.0-54.0); IMMATURE GRANULOCYTES 4.4 % (0-5); LYMPHOCYTES 13.3 % (15-50); MCH 30.2 pg (26.0-34.0); MCHC 30.4 g/dL (31.0-37.0); MCV 99.3 fL (80.0-100.0); MEAN PLATELET VOLUME 10.3 fL (7.4-10.4); MONOCYTES 10.8 % (2-11); NEUTROPHILS 67.1 % (40-80); PLATELET COUNT 280 10x3/uL (130-400); RBC 2.98 10x6/uL (4.20-6.10); RDW 16.1 % (11.5-14.5); WBC 11.7 10x3/uL (4.8-10.8)
--- NOTE | 2019-08-20 07:15 | NUR ---
REPORT RECEIVED. PT ON VENT. IN RESTRAINTS. HAS CHELLE. PT HAS A LEFT CHEST TUBE UP TO WATER SEAL. PT SEDATED. OGT IN PLACE WITH PULMOCARE INFUSING AT 55ML/HR AND A FLUSH OF 125ML EVERY 4 HR. PT HAS HEEL PROTECTORS ON AND HAD A CHG BATH ON SHACKLER.
--- NOTE | 2019-08-20 10:22 | NUR ---
09 REPORT RECEIVED FROM KATHYA RN SPOUSE AT BEDSIDE UPDATE PROVIDED REPOSITIONED RELEASED AND REAPPLIED CHAKA SOFT WRIST RESTRAINTS ORAL AND FACIAL CARE PROVIDED NOTIFIED RT OF LEAKY CUFF.
--- NOTE | 2019-08-20 14:10 | NUR ---
1100 REPOSITIONED ORAL AND FACIAL CARE PROVIDED
--- NOTE | 2019-08-20 14:14 | NUR ---
1300 TUBE FEED REMAINS OFF FOR BRONCOSCOPY
--- NOTE | 2019-08-20 14:16 | NUR ---
3530 DR EASTON AT BEDSIDE PERFORMING BRONCOSCOPY
--- NOTE | 2019-08-20 14:22 | NUR ---
1400 DR EASTON SPOKE WITH SPOUSE GIVING RESULTS OF THE BRONSCOPY
--- NOTE | 2019-08-20 19:00 | NUR ---
SHIFT ASSESSMENT COMPLETED. PT CARE ASSUMED. MONITORS ON AND WORKING, VITALS STABLE, VENT SETTINGS NOTED. CORBETT STAT LOCKED IN PLACE, SEE FLOW SHEET FOR FURTHER DETAILS. WILL CONTINUE TO OBSERVE.
--- NOTE | 2019-08-20 21:00 | NUR ---
PT TURNED AND REPOSITIONED FOR COMFORT, MONITORS ON AND WORKING, VITALS STABLE. ORAL CARE PROVIDED AT THIS TIME, WILL CONTINUE TO OBSERVE.
--- NOTE | 2019-08-20 23:00 | NUR ---
PT TURNED AND REPOSITIONED FOR COMFORT, MONITORS ON AND WORKING, VITALS STABLE. SEE FLOW SHEET FOR FURTHER DETAILS. WILL CONTINUE TO OBSERVE.
[2019-08-21] VITALS (22 sets, daily range): BP systolic 94–129; BP diastolic 53–75
--- NOTE | 2019-08-21 03:00 | NUR ---
PT TURNED AND REPOSITIONED FOR COMFORT, FREQUENT SUCTION THIS SHIFT WITH FREQUENT PRODUCTIVE COUGH. MONITORS ON AND WORKING, VITALS STABLE, SEE FLOW SHEET FOR FURTHER DETAILS. WILL CONTINUE TO OBSERVE.
--- NOTE | 2019-08-21 09:19 | NUR ---
Nutrition follow-up: Pt remains intubated, sedated with propofol @ 18.9 ml/hr Pulmocare @ 55 ml/hr; pt is continues to tolerate TF at goal H2O flush @ 25 ml/hr Labs reviewed Wt: 197# RDN following.
--- NOTE | 2019-08-21 09:23 | NUR ---
FAMILY AT BEDSIDE. UPDATED. NEW PROPOFOL HUNG. VSS. WILL CONTINUE TO MONITOR.
[2019-08-21 10:09] LABS: FUNGUS STAIN Final report (())
--- NOTE | 2019-08-21 12:35 | NUR ---
AT BEDSIDE. UPDATED BY DR EASTON. PT SUCTIONED. REPOSITIONED. VSS. WILL CONTINUE TO MONITOR.
[2019-08-21 13:09] LABS: ACID FAST SMEAR Negative (()); AFB SPECIMEN PROCESSING Concentration (())
--- NOTE | 2019-08-21 16:15 | NUR ---
PT REPOSITIONED AND SUCTIONED. VSS. WILL CONTINUE TO MONITOR.
--- NOTE | 2019-08-21 19:00 | NUR ---
REC'D REPORT. ASSESSMENT COMPLETED. REPOSITIONED. CT INTACT. ETT/OGT PRESENT. CHECKED PLACEMENT TO OGT, 28 ML ON RESIDUAL.
--- NOTE | 2019-08-21 21:00 | NUR ---
REPOSITIONED, ORAL CARE COMPLETED. VSS
--- NOTE | 2019-08-21 23:00 | NUR ---
RE-ASSESSMENT COMPLETED. NO CHANGES SINCE LAST ASSESSMENT. REPOSTIONED, ORAL CARE PROVIDED
[2019-08-22] VITALS (25 sets, daily range): BP systolic 91–161; BP diastolic 52–80
--- NOTE | 2019-08-22 01:00 | NUR ---
REPOSITIONED, ORAL CARE PROVIDED. VSS.
--- NOTE | 2019-08-22 03:00 | NUR ---
RE-ASSESSMENT COMPLETED. NO CHANGES SINCE LAST ASSESSMENT
[2019-08-22 06:31] LABS: BASOPHILS 0.9 % (0-2); EOSINOPHILS 4.7 % (0-7); HEMATOCRIT 27.5 % (42.0-54.0); HEMOGLOBIN 8.2 g/dL (13.5-17.5); IMMATURE GRANULOCYTES 5.6 % (0-5); LYMPHOCYTES 13.9 % (15-50); MCH 29.6 pg (26.0-34.0); MCHC 29.8 g/dL (31.0-37.0); MCV 99.3 fL (80.0-100.0); MEAN PLATELET VOLUME 9.8 fL (7.4-10.4); MONOCYTES 12.7 % (2-11); NEUTROPHILS 62.2 % (40-80); PLATELET COUNT 266 10x3/uL (130-400); RBC 2.77 10x6/uL (4.20-6.10); RDW 15.9 % (11.5-14.5); WBC 8.9 10x3/uL (4.8-10.8)
[2019-08-22 06:50] LABS: ALBUMIN 1.3 g/dL (3.4-5.0); ALKALINE PHOSPHATASE 95 U/L (30-120); ALT (SGPT) 40 U/L (10-68); BILIRUBIN - TOTAL 0.24 mg/dL (0.2-1.3); CALC OSMOLALITY 276 mosm/kg (275-300); CALCIUM 8.2 mg/dL (8.5-10.1); CARBON DIOXIDE 34.5 mmol/L (21.0-32.0); CHLORIDE - SERUM 102 mmol/L (98-107); CREATININE - SERUM 0.6 mg/dL (0.6-1.3); GLUCOSE 125 mg/dL (74-106); MAGNESIUM - SERUM 1.9 mg/dL (1.8-2.4); PHOSPHOROUS 2.8 mg/dL (2.5-4.9); PROTEIN - SERUM 5.9 g/dL (6.4-8.2); SODIUM 137 mmol/L (136-145); UREA NITROGEN 18 mg/dL (7-18); eGFR NON AFRICAN AMERICAN > 90 mL/min (90-120)
--- NOTE | 2019-08-22 08:10 | NUR ---
DR VIGIL NOTIFIED OF DECREASED H&H LEVEL. NO NEW ORDER RECEIVED.
--- NOTE | 2019-08-22 08:39 | NUR ---
PT NOTED OPENS EYES WHEN SPOKEN TO AND FOLLOWS COMMANDS. OGT RESIDUALS NOTED AT 5ML. VSS. PT TURNED Q2H. ORAL CARE PROVIDED Q2H. WILL CONTINUE PLAN OF CARE.
--- NOTE | 2019-08-22 10:09 | NUR ---
NO ACUTE DISTRESS NOTED. VSS. PT TURNED Q2H. ORAL CARE PROVIDED Q2H. WILL CONTINUE PLAN OF CARE.
--- NOTE | 2019-08-22 12:03 | NUR ---
NO ACUTE DISTRESS NOTED. NO CHANGE. VSS. PT EYES OPEN SPONTANEOUSLY AND FOLLOWS COMMANDS. TURNED Q2H. ORAL CARE PROVIDED Q2H. WILL CONTINUE PLAN OF CARE.
--- NOTE | 2019-08-22 14:26 | NUR ---
LYING IN BED ON VENT AT THIS TIME. PT CALM. NO ACUTE DISTRESS NOTED. PT TURNED Q2H. ORAL CARE PROVIDED Q2H. WILL CONTINUE PLAN OF CARE.
--- NOTE | 2019-08-22 16:14 | NUR ---
AT BEDSIDE AT THIS TIME. PTS STATED THAT PT WAS ANSWERING YES AND NO QUESTIONS AND SQUEEZING HAND WELL OPENING EYES WHEN SPOKEN TO. VSS. NO ACUTE DISTRESS NOTED. WILL CONTINUE PLAN OF CARE.
--- NOTE | 2019-08-22 18:47 | NUR ---
CHG BATH PROVIDED WITH TOTAL LINEN CHANGE AT THIS TIME. VSS. NO ACUTE DISTRESS NOTED. WILL CONTINUE PLAN OF CARE.
--- NOTE | 2019-08-22 19:30 | NUR ---
REPORT REC'D AND CARE ASSUMED, REC'D PT ON VENT VIA 7.5 ETT TAPED SECURELY AT 27CM LIPLINE SEE FLOWSHEET FOR VENT SETTINGS, PT OPENS EYES TO VERBAL STIMULI BUT DOES NOT FOLLOW COMMANDS, OGT TAPED SECURELY TO ETT, PLACEMENT VERIFIED VIA SM AIR BOLUS AUSCULTATED OVER EPIGASTRIM, PULMOCARE @ 55CC/HR WITH 100CC Q4HR FLUSH, RIGHT UPPER ARM PICC SEE IV GTT SHEET FOR FLUIDS, ABD SOFT, BS ACTIVE, CORBETT PATENT DRAINING RIGO COLORED URINE, LEFT CHEST TUBE TO WATER SEAL, AIR OVERLAY MATTRESS IN USE, BILAT HEEL PROTECTORS IN PLACE REMOVED MOMENTARILY AND REDNESS NOTED TO BILAT HEELS, ARMS ELEVATED ON PILLOWS, SR UP X 2, BED IN LOW POSITION, BILAT SOFT WRIST RESTRAINTS INTACT, VISIBLE TO NURSES STATION.
--- NOTE | 2019-08-22 20:55 | NUR ---
NO VISITORS IN AT THIS TIME, PT REPOSITIONED ONTO LEFT SIDE SUPPORTED WITH PILLOWS, SUCTIONED DOWN ETT, HERNANDEZ RETURN NOTED, HOB ELEVATED, TF RESUMED, MINIMAL RESIDUAL.
--- NOTE | 2019-08-22 23:30 | NUR ---
REASSESSMENT COMPLETED, PT REPOSITIONED UP IN BED AND ONTO RIGHT SIDE SUPPORTED WITH WEDGES, ORAL CARE PROVIDED, ARMS ELEVATED, AND HEELS BRIDGED.
[2019-08-23] VITALS (24 sets, daily range): BP systolic 94–147; BP diastolic 54–97
--- NOTE | 2019-08-23 00:30 | NUR ---
ROUTINE MEDS GIVEN ORDERED, WILL CONT TO MONITOR FOR CHANGES.
--- NOTE | 2019-08-23 02:04 | NUR ---
REPOSITIONED FOR COMFORT, NO CHANGES FROM PREVIOUS STATUS.
--- NOTE | 2019-08-23 03:30 | NUR ---
REASSESSMENT COMPLETED, NO CHANGES FROM PREVIOUS ASSESSMENT WILL MONITOR CLOSELY FOR CHANGES.
--- NOTE | 2019-08-23 05:33 | NUR ---
PT REPOSITIONED IN BED, ORAL CARE PROVIDED, VSS, WILL CONT TO MONITOR FOR CHANGES.
--- NOTE | 2019-08-23 07:04 | NUR ---
LYING IN BED ON VENT AT THIS TIME. PT AWAKENS WHEN SPOKEN TO, OPENS EYES AND MOVES LEGS WHEN ASKED TO. VSS. NO ACUTE DISTRESS NOTED. WILL CONTINUE PLAN OF CARE.
--- NOTE | 2019-08-23 09:04 | NUR ---
AT BEDSIDE AT THIS TIME. VSS. NO ACUTE DISTRESS NOTED. UPDATES PROVIDED. PT TURNED Q2H. ORAL CARE PROVIDED Q2H. WILL CONTINUE PLAN OF CARE.
[2019-08-23 09:54] LABS: CALC OSMOLALITY 281 mosm/kg (275-300); CALCIUM 8.7 mg/dL (8.5-10.1); CARBON DIOXIDE 35.9 mmol/L (21.0-32.0); CHLORIDE - SERUM 102 mmol/L (98-107); CREATININE - SERUM 0.5 mg/dL (0.6-1.3); GLUCOSE 130 mg/dL (74-106); SODIUM 139 mmol/L (136-145); UREA NITROGEN 17 mg/dL (7-18); eGFR NON AFRICAN AMERICAN > 90 mL/min (90-120)
[2019-08-23 09:56] LABS: BASOPHILS 1.1 % (0-2); EOSINOPHILS 4.3 % (0-7); HEMATOCRIT 26.6 % (42.0-54.0); HEMOGLOBIN 8.1 g/dL (13.5-17.5); IMMATURE GRANULOCYTES 4.9 % (0-5); MCH 30.2 pg (26.0-34.0); MCHC 30.5 g/dL (31.0-37.0); MCV 99.3 fL (80.0-100.0); MEAN PLATELET VOLUME 9.7 fL (7.4-10.4); MONOCYTES 9.5 % (2-11); NEUTROPHILS 64.2 % (40-80); PLATELET COUNT 288 10x3/uL (130-400); RBC 2.68 10x6/uL (4.20-6.10); WBC 9.5 10x3/uL (4.8-10.8)
[2019-08-23 10:00] LABS: ALBUMIN 1.4 g/dL (3.4-5.0); ALKALINE PHOSPHATASE 110 U/L (30-120); ALT (SGPT) 39 U/L (10-68); BILIRUBIN - TOTAL 0.26 mg/dL (0.2-1.3); PROTEIN - SERUM 6.1 g/dL (6.4-8.2)
--- NOTE | 2019-08-23 11:04 | NUR ---
OGT RESIDUALS NOTED AT 5ML.
--- NOTE | 2019-08-23 11:10 | NUR ---
PER DR EASTON, NOTIFY DR ALLEN OF NEED FOR TRACH PLACEMENT TOMORROW.
--- NOTE | 2019-08-23 11:38 | NUR ---
1115: PT NOTED IN AFIB UP TO 135 AT THIS TIME, NOT TOLERATING CPAP TRIAL. PER DR EASTON RESTART SEDATION AND WILL NOT DO ANY MORE CPAP TRIALS TODAY. AND TO NOTIFY DR ALLEN TODAY ABOUT PTS NEED FOR TRACH PLACEMENT. 1135: SEDATION HAS BEEN RESTARTED AND PT NO LONGER ON CPAP TRIAL. HEART RATE NOTED TRENDING AROUND 89-94 STILL IN AFIB. STILL ON CORDARONE GTT. WILL NOTIFY CARDIOLOGY.
--- NOTE | 2019-08-23 11:46 | NUR ---
PT CONVERTED BACK TO SINUS RHYTHM 71.
--- NOTE | 2019-08-23 12:24 | NUR ---
DR ALLEN NOTIFIED OF TRACHEOSTOMY CONSULT BY DR EASTON. HE STATED HE WOULD BE BY IN A LITTLE BIT TO TALK WITH PTS .
--- NOTE | 2019-08-23 12:25 | NUR ---
PT CONVERTED BACK TO SINUS RHYTHM 74.
--- NOTE | 2019-08-23 12:30 | NUR ---
DR ALLEN HAS SPOKEN WITH PTS , ALL QUESTIONS AND CONCERNS ADRESSED. PTS DENIES ANY FURTHER QUESTIONS. NO ACUTE DISTRESS NOTED. VSS. WILL CONTINUE PLAN OF CARE.
[2019-08-23 13:12] LABS: INR 1.1 (0.85-1.17); PROTIME 14.1 SECONDS (11.6-15.0)
--- NOTE | 2019-08-23 14:00 | NUR ---
NO ACUTE DISTRESS NOTED. NO CHANGE. VSS. SINUS RHYTHM. PT TURNED Q2H, ORAL CARE PROVIDED Q2H. WILL CONTINUE PLAN OF CARE.
--- NOTE | 2019-08-23 15:00 | NUR ---
CORDARONE ADMIN PER ORDERS VIA OGT. WILL STOP CORDARONE GTT IN 4 HOURS AT 1900.
--- NOTE | 2019-08-23 17:28 | NUR ---
NO ACUTE DISTRESS NOTED. VSS. SINUS RHYTHM. PT TURNED Q2H, ORAL CARE PROVIDED Q2H. CORBETT CARE PROVIDED. WILL CONTINUE PLAN OF CARE.
--- NOTE | 2019-08-23 19:30 | NUR ---
BEDSIDE SHIFT REPORT COMPLETED, SHIFT ASSESSMENT COMPLETED SEE FLOWSHEET. AMIO DCD AT THIS TIME PER ORDER. VSS CPOC
--- NOTE | 2019-08-23 21:30 | NUR ---
DIPROVAN TUBING CHANGED PER POLICY, VSS CPOC
--- NOTE | 2019-08-23 22:43 | NUR ---
REASSESSMENT COMPLETED AT THIS TIME, HIBICLEANSE TO THROAT PER ORDER COMPLETED AT THIS TIME. VSS NO ACUTE DISTRESS NOTED, NO ACUTE CHANGES, SEE FLOWSHEET FOR FULL REASSESSMENT.
[2019-08-24] VITALS (24 sets, daily range): BP systolic 93–129; BP diastolic 7–77
--- NOTE | 2019-08-24 02:41 | NUR ---
REASSESSMENT COMPLETED SEE FLOWSHEET
[2019-08-24 06:30] LABS: APTT 36.6 SECONDS (22.8-39.4); INR 1.08 (0.85-1.17); PROTIME 13.9 SECONDS (11.6-15.0)
[2019-08-24 06:42] LABS: ALBUMIN 1.3 g/dL (3.4-5.0); ALKALINE PHOSPHATASE 85 U/L (30-120); ALT (SGPT) 27 U/L (10-68); BILIRUBIN - TOTAL 0.41 mg/dL (0.2-1.3); CALC OSMOLALITY 266 mosm/kg (275-300); CALCIUM 7.6 mg/dL (8.5-10.1); CARBON DIOXIDE 33.6 mmol/L (21.0-32.0); CHLORIDE - SERUM 98 mmol/L (98-107); CREATININE - SERUM 0.5 mg/dL (0.6-1.3); GLUCOSE 94 mg/dL (74-106); MAGNESIUM - SERUM 1.8 mg/dL (1.8-2.4); PHOSPHOROUS 2.6 mg/dL (2.5-4.9); POTASSIUM - SERUM 3.9 mmol/L (3.5-5.1); PROTEIN - SERUM 5.6 g/dL (6.4-8.2); SODIUM 133 mmol/L (136-145); UREA NITROGEN 14 mg/dL (7-18); eGFR NON AFRICAN AMERICAN > 90 mL/min (90-120)
--- NOTE | 2019-08-24 07:00 | NUR ---
REPORT RECEIVED. ASSESSMENT COMPLETE PER FLOW SHEET. VSS. PT RESTING COMFORTABLY WILL CONTINUE TO MONITOR
[2019-08-24 07:18] LABS: BASOPHILS 0.3 % (0-2); EOSINOPHILS 2.4 % (0-7); HEMATOCRIT 24.2 % (42.0-54.0); IMMATURE GRANULOCYTES 3.5 % (0-5); LYMPHOCYTES 9.3 % (15-50); MCH 30.2 pg (26.0-34.0); MCV 97.6 fL (80.0-100.0); MEAN PLATELET VOLUME 10.7 fL (7.4-10.4); MONOCYTES 9.5 % (2-11); PLATELET COUNT 313 10x3/uL (130-400); RBC 2.48 10x6/uL (4.20-6.10); RDW 15.7 % (11.5-14.5); WBC 9.6 10x3/uL (4.8-10.8)
[2019-08-24 07:20] LABS: HEMOGLOBIN 7.5 g/dL (13.5-17.5)
--- NOTE | 2019-08-24 07:26 | NUR ---
DR ALLEN CALLED GIVEN UDPATE REGUARDING PT H/H NO NEW ORDERS RECEIVED.
--- NOTE | 2019-08-24 09:08 | NUR ---
Nutrition follow-up: Pt NPO for TRACH placement today; failed CPAP trials. Pt had been on Pulmocare @ 55 ml/hr and was tolerating at goal rate. Labs reviewed Wt: 207# RDN following.
--- NOTE | 2019-08-24 10:30 | NUR ---
PT BACK FROM OR. RT AT BEDSIDE VSS WILL CONTINUE TO MONITOR
--- NOTE | 2019-08-24 10:50 | NUR ---
FAMILY FOUND, NOW AT BEDSIDE GIVEN UPDATE.
--- NOTE | 2019-08-24 11:00 | NUR ---
REASSESSMENT COMPLETE PER FLOW SHEET. VSS. PT RESTING COMFORTABLY WILL CONTINUE TO MONITOR
--- NOTE | 2019-08-24 12:27 | OP ---
PATIENT NAME: TOMASZ SIDDIQI JR MEDICAL RECORD: [id number] :50 LOCATION:[facility] [id number] ADMISSION DATE:08/12/19 SURGEON: DINO ALLEN MD DATE OF OPERATION: 08/24/2019 SURGEON: Dino Allen MD PROCEDURE PERFORMED: Tracheostomy. ANESTHESIA: General endotracheal. INDICATION: Ventilator dependence. BLOOD LOSS: None. COMPLICATIONS: None. SPECIMENS: None. CONDITION: Stable. DISPOSITION: ICU. OPERATIVE FINDINGS: Good position of an 8.0 Shiley tracheostomy with CO2 return. The tube was sutured in place as well as the tracheostomy tape around the neck. OPERATIVE INDICATION: Ventilator dependence due to pneumonia and pulmonary embolus. PROCEDURE IN DETAIL: The patient was brought to the operating suite. Neck was prepped and draped. A transverse incision was made below the sternal notch, taken down through the midline to the anterior portion of the second and third tracheal cartilages. Two Prolene sutures were placed to provide upward traction and the second tracheal cartilage was incised in the midline. The endotracheal tube was pulled back. The tracheostomy opening was spread open. An 8.0 Shiley tracheostomy was placed, connected to the ventilator with good CO2 return. The trach cuff was inflated. The wound was closed with vertical mattress nylon, which was also used to secure the flange of the tracheostomy and a dressing was placed. The patient back to ICU, stable. TRANSINT:[id number] Voice Confirmation ID: [id number] DOCUMENT ID: [id number] DINO ALLEN MD at 1227 CC: DL EASTON MD [id number] DICTATION DATE: 08/24/19 1052 [employer]TAIL [employer]OUN[employer] MANAGER: 08/24/19 1118 ADM IN [facility] [address] [place] [address]
--- NOTE | 2019-08-24 13:16 | NUR ---
PT SEDATED. VSS. PT RESTING COMFORTABLY AT BEDSIDE WILL CONTINUE TOMONITOR
--- NOTE | 2019-08-24 15:00 | NUR ---
REASSESSMENT COMPLETE PER FLOW SHEET. VSS. PT RESTING COMFORTABLY WILL CONTINUE TO MONTIOR
--- NOTE | 2019-08-24 17:00 | NUR ---
FAMILY AT BEDSIDE. GIVEN UPDATE
--- NOTE | 2019-08-24 18:40 | NUR ---
DR ALMARAZ. PT IN A FIB RVR. AWAITING CALL BACK
--- NOTE | 2019-08-24 19:00 | NUR ---
PT SEDATED ON VENT, TRACH IN PLACE, SIZE 8.0, ASSESSMENT COMPLETED, SEE FLOWSHEET. PICC IN RT UPPER ARM, SEE IV FLOWSHEET. SOFT WRIST RESTRAINTS IN PLACE BILAT. WILL CONTINUE TO MONITOR.
--- NOTE | 2019-08-24 20:35 | NUR ---
DR ZHANG PAGED FOR THIRD TIME, AWAITING RESPONSE.
--- NOTE | 2019-08-24 21:59 | NUR ---
SPOKE WITH DR PETERSON, NEW ORDERS RECEIVED.
--- NOTE | 2019-08-24 23:00 | NUR ---
REASSESSMENT COMPLETED, SEE FLOWSHEET.
[2019-08-25] VITALS (23 sets, daily range): BP systolic 91–130; BP diastolic 57–84
--- NOTE | 2019-08-25 01:00 | NUR ---
PT SEDATED ON VENT, NO CHANGES IN STATUS.
--- NOTE | 2019-08-25 03:00 | NUR ---
REASSESSMENT COMPLETED, SEE FLOWSHEET.
--- NOTE | 2019-08-25 05:00 | NUR ---
PT SEDATED ON VENT, REPOSITIONED FOR COMFORT.
--- NOTE | 2019-08-25 07:00 | NUR ---
REPORT RECEIVED. ASSESSMENT COMPLETE PER FLOW SHEET. VSS PT RESTING COMFORTABLY WILL CONTINUE TO MONITOR
--- NOTE | 2019-08-25 08:35 | NUR ---
Nutrition follow-up: Pt s/p trach placement 08/23; OGT removed and nurse unable to place NGT. Pt remains NPO at this time Will need NGT or PEG tube placed so nutrition support can resume. RDN following.
--- NOTE | 2019-08-25 09:10 | NUR ---
DR ALLEN AT BEDSIDE NEW ORDERS REICEVED. SPOKE WITH FAMILY ANSWERED ALL QUESTIONS.
[2019-08-25 09:33] LABS: CALCIUM 8.6 mg/dL (8.5-10.1); CHLORIDE - SERUM 101 mmol/L (98-107); GLUCOSE 103 mg/dL (74-106); SODIUM 138 mmol/L (136-145)
[2019-08-25 09:35] LABS: CALC OSMOLALITY 275 mosm/kg (275-300); CARBON DIOXIDE 32.6 mmol/L (21.0-32.0); CREATININE - SERUM 0.5 mg/dL (0.6-1.3); POTASSIUM - SERUM 3.9 mmol/L (3.5-5.1); UREA NITROGEN 12 mg/dL (7-18); eGFR NON AFRICAN AMERICAN > 90 mL/min (90-120)
[2019-08-25 09:40] LABS: ALBUMIN 1.5 g/dL (3.4-5.0); ALKALINE PHOSPHATASE 80 U/L (30-120); ALT (SGPT) 25 U/L (10-68); BILIRUBIN - TOTAL 0.43 mg/dL (0.2-1.3)
[2019-08-25 09:41] LABS: PROTEIN - SERUM 6.2 g/dL (6.4-8.2)
[2019-08-25 09:56] LABS: LYMPHOCYTES 12.3 % (15-50); MCH 29.3 pg (26.0-34.0); MCHC 30.7 g/dL (31.0-37.0); MEAN PLATELET VOLUME 9.5 fL (7.4-10.4); NEUTROPHILS 73.4 % (40-80); RDW 15.7 % (11.5-14.5)
[2019-08-25 10:19] LABS: HEMOGLOBIN 8.9 g/dL (13.5-17.5); MCV 95.4 fL (80.0-100.0); PLATELET COUNT 317 10x3/uL (130-400); RBC 3.04 10x6/uL (4.20-6.10); WBC 7.3 10x3/uL (4.8-10.8)
--- NOTE | 2019-08-25 11:00 | NUR ---
REASSESSMENT COMPLETE PER FLOW SHEET. VSS. PT RESTING COMFORTABLY WILL CONTINUE TO MONITOR
--- NOTE | 2019-08-25 12:10 | NUR ---
DR BA CALLED. NEW ORDERS RECEIVED TO CPAP TRIAL AT THIS TIME 05/07 CLARENCE WITH RT PAGED GIVEN UPDATE
--- NOTE | 2019-08-25 12:59 | NUR ---
DR ORTIZ AT BEDSIDE. GIVEN UPDATE. SPOKE WITH FAMILY REGAURDING PEG TUBE PLACEMENT ALL QUESTIONS ANSWERED.
[2019-08-25 13:44] LABS: BILIRUBIN NEGATIVE (NEGATIVE); GLUCOSE NEGATIVE (NEGATIVE); KETONE NEGATIVE (NEGATIVE); NITRITE NEGATIVE (NEGATIVE); UROBILINOGEN NORMAL (NORMAL)
[2019-08-25 13:45] LABS: BACTERIA FEW /hpf (NEGATIVE); EPITHELIAL CELLS OCC /hpf (0-5); GRANULAR CAST RARE /lpf (NONE SEEN); HYALINE CAST RARE /lpf (NONE SEEN); WHITE CELLS - URINE 0-5 /hpf (NEGATIVE)
[2019-08-25 18:35] LABS: ALBUMIN 1.4 g/dL (3.4-5.0); CALC OSMOLALITY 275 mosm/kg (275-300); CALCIUM 8.1 mg/dL (8.5-10.1); CARBON DIOXIDE 33.2 mmol/L (21.0-32.0); CHLORIDE - SERUM 101 mmol/L (98-107); CREATININE - SERUM 0.4 mg/dL (0.6-1.3); GLUCOSE 106 mg/dL (74-106); MAGNESIUM - SERUM 1.8 mg/dL (1.8-2.4); PHOSPHOROUS 3.4 mg/dL (2.5-4.9); SODIUM 138 mmol/L (136-145); UREA NITROGEN 12 mg/dL (7-18); eGFR NON AFRICAN AMERICAN > 90 mL/min (90-120)
--- NOTE | 2019-08-25 19:00 | NUR ---
REPORT RECEIVED, SHIFT ASSESSMENT COMPLETED PER FLOW SHEET, PT RESTING COMFORTABLY IN BED, SEDATED ON VENT, 8.0 TREACH SECURED AND SITE C/D/I, RT UPPER ARM PICC LINE PATENT DRSG AND SITE C/D/I, LEFT CHEST CT x1 DRSG C/D/I, CT TURNED OFF TO PT BY PHYSICIAN BILAT SOFT WRIST RESTRAINTS REPOSITIONED AND SKIN ASSESSED WITH NO BREAKDOWN NOTED, EXTREMITIES ELEVATED ON PILLOWS CORBETT CATH TO GRAVITY PATENT WITH RIGO URINE NOTED, PT ON AIR OVERLAY BED, BILAT HEEL PROTECTORS IN PLACE, VSS, BED ALARM ON, SR UP x2, BED IN LOW POSITION, WILL CONTINUE TO MONITOR
--- NOTE | 2019-08-25 23:00 | NUR ---
REASSESSMENT COMPLETE, NO ACUTE CHANGES FROM PRIOR ASSESSMENT, VSS, PT RESTING COMFORTABLY, NO ACUTE S/S OF DISTRESS, WILL CONTINUE TO MONITOR
[2019-08-26] VITALS (24 sets, daily range): BP systolic 82–131; BP diastolic 55–665
--- NOTE | 2019-08-26 03:00 | NUR ---
REASSESSMENT COMPLETE, NO ACUTE CHANGES FROM PRIOR ASSESSMENT, PT RESTING COMFORTABLY, NO ACUTE S/S OF DISTRESS, VSS, WILL CONTINUE TO MONITOR
[2019-08-26 05:10] LABS: ALBUMIN 1.3 g/dL (3.4-5.0); ALKALINE PHOSPHATASE 75 U/L (30-120); ALT (SGPT) 21 U/L (10-68); BILIRUBIN - TOTAL 0.31 mg/dL (0.2-1.3); CALC OSMOLALITY 275 mosm/kg (275-300); CALCIUM 8.6 mg/dL (8.5-10.1); CARBON DIOXIDE 33.5 mmol/L (21.0-32.0); CHLORIDE - SERUM 101 mmol/L (98-107); CREATININE - SERUM 0.4 mg/dL (0.6-1.3); GLUCOSE 85 mg/dL (74-106); MAGNESIUM - SERUM 1.8 mg/dL (1.8-2.4); POTASSIUM - SERUM 3.5 mmol/L (3.5-5.1); SODIUM 139 mmol/L (136-145); TRIGLYCERIDE 114 mg/dL (30-200); UREA NITROGEN 11 mg/dL (7-18); eGFR NON AFRICAN AMERICAN > 90 mL/min (90-120)
[2019-08-26 05:18] LABS: HEMATOCRIT 27.5 % (42.0-54.0); HEMOGLOBIN 8.5 g/dL (13.5-17.5); LYMPHOCYTES 21.3 % (15-50); MCH 29.2 pg (26.0-34.0); MCHC 30.9 g/dL (31.0-37.0); MCV 94.5 fL (80.0-100.0); MEAN PLATELET VOLUME 9.3 fL (7.4-10.4); NEUTROPHILS 61.4 % (40-80); PLATELET COUNT 320 10x3/uL (130-400); RBC 2.91 10x6/uL (4.20-6.10); RDW 15.8 % (11.5-14.5); WBC 6.7 10x3/uL (4.8-10.8)
--- NOTE | 2019-08-26 07:00 | NUR ---
REPORT RECIEVED. ASSESSMENT COMPLETE PER FLOW SHEET. VSS. PT RESTING COMFORTABLY WILL CONTINUE TO MONITOR
--- NOTE | 2019-08-26 09:20 | NUR ---
DR BA AT BEDSIDE GIVEN UPDATE. NEW ORDERS RECEIVED
--- NOTE | 2019-08-26 09:25 | NUR ---
Nutrition follow-up: Pt NPO; scheduled for PEG tube placement today New trach, vent Labs reviewed Wt: [phone]# Recommend resuming Pulmocare @ 30 ml/hr with gradual increase to goal rate of 50 ml/hr with 25 ml H2O flush q hour. RDN following.
--- NOTE | 2019-08-26 10:30 | NUR ---
DR ORTIZ AT BEDSIDE GIVEN UPDATE. PEG ADM.
--- NOTE | 2019-08-26 11:00 | NUR ---
REASSESSMENT COMPLETE PER FLOW SHEET. VSS. PT RESTING COMFORTABLY WILL CONTINUE TO MONITRO
--- NOTE | 2019-08-26 13:00 | NUR ---
DR ALLEN AT BEDSIDE. NEW ORDERS RECEIVED. ADM.
--- NOTE | 2019-08-26 15:00 | NUR ---
REASSESSMENT COMPLETE PER FLOW SHEET. VSS. PT RESTING COMFORTABLY WILL CONTINUE TO MONTIOR
--- NOTE | 2019-08-26 18:03 | MORECARE ---
CASE MANAGEMENT DISCHARGE SUMMARY PATIENT: TOMASZ SIDDIQI UNIT: [id number] ADM DATE: 08/12/19 AGE: 69 : 50 SEX: M ROOM/BED: D.2301 AUTHOR: ZHANE,DOC PHYSICIAN: REFERRING PHYSICIAN: JADE CALABRESE MD DATE OF SERVICE: 08/26/19 Discharge Plan Patient Name: TOMASZ SIDDIQI Facility: [facility]:[place] : 1950 Planned Disposition: Home with Home Health Anticipated Discharge Date: Discharge Date: Expected LOS: Initial Reviewer: [email or web address] Initial Review Date: 08/12/2019 Generated: 08/26/19 7:03 pm DCP- Discharge Planning Updated by [email or web address]: Marni Ritchie on 08/13/19 5:[address] Patient Name: TOMASZ SIDDIQI Admission Status: ER Accout number: [id number] Admission Date: 08-12-2019 : 1950 Admission Diagnosis: Attending: JADE CALABRESE Current LOS: 1 Anticipated DC Date: Planned Disposition: Home with Home Health Primary Insurance: MEDICARE A & B Discharge Planning Comments: CM met with patient's Ariel at bedside after explaining CM role and obtaining verbal consent. Patient lives at home with his Ariel where he is independent with his care and plans to return there upon discharge. Patient feels this would be a safe discharge. CM discussed availability / needs of home health and medical equipment. Patient has home / portable 02 with [facility]. Patient has Home Health with [facility] and plans to resume when discharged. [facility]AZON signed. Patient denies any discharge needs at this time. Patient states he will have his family drive him home upon discharge. CM will continue to follow and assist as needed with discharge planning / needs. Shovel Loader Operator: Marni Ritchie DCPIA - Discharge Planning Initial Assessment Updated by [email or web address]: Marni Ritchie on 08/13/19 6:06 pm * Is the patient Alert and Oriented? Yes * PCP SHOSHANA * Pharmacy [facility] * Preadmission Environment Home with Family * ADLs Independent * Other Equipment HOME / PORTABLE 02, NEBULIZER * List name and contact numbers for known caregivers / representatives who currently or will assist patient after discharge: ARIEL SIDDIQI - SPOUSE - [phone] * Verbal permission to speak to the caregivers and representatives has been obtained from the patient. Yes * Community resources currently utilized Home Health * Please name any agencies selected above. [facility] * Additional services required to return to the preadmission environment? No * Can the patient safely return to the preadmission environment? Yes * Has this patient been hospitalized within the prior 30 days at any hospital? Yes External Providers External Provider: Tiff[facility] Next Contact Date: Service Request Date: Service Type: Resolution: Reviewer: Comments: Coverage Notice Reviewer: [id number] - Marnimason Ritchie Notice Issued Date-Time: 08/13/2019 17:00 Notice Type: Patient Choice Letter Notice Delivered To: Family Member Relationship to Patient: Spouse Salesperson Hearing Aids Name: ARIEL SIDDIQI Delivery Method: HAND - Hand Delivered Cristal Days: Prior Verbal Notification: Recipient Understood Notice: Yes Recipient Signature: Yes Med Rec Note Co-signed by Attending: Coverage Notice Comment: [facility] Last DP export: 08/13/19 5:17 p Patient Name: TOMASZ SIDDIQI Page 38507 at 1803 All edits/amendments must be made on the electronic document DICTATION DATE: 08/26/191802 WAREHOUSE DELIVERY DRIVER: JAQUAN 08/26/191802 RPT#: [id number] DC DATE: STATUS: ADM IN [facility] [address] [place] [address] END OF REPORT
--- NOTE | 2019-08-26 18:35 | MORECARE ---
CASE MANAGEMENT DISCHARGE SUMMARY PATIENT: TOMASZ SIDDIQI UNIT: [id number] ADM DATE: 08/12/19 AGE: 69 : 50 SEX: M ROOM/BED: D.2301 AUTHOR: ZHANE,DOC PHYSICIAN: REFERRING PHYSICIAN: JADE CALABRESE MD DATE OF SERVICE: 08/26/19 Discharge Plan Patient Name: TOMASZ SIDDIQI Facility: [facility]:[place] : 1950 Planned Disposition: Home with Home Health Anticipated Discharge Date: Discharge Date: Expected LOS: Initial Reviewer: [email or web address] Initial Review Date: 08/12/2019 Generated: 08/26/19 7:34 pm Comments DCP- Discharge Planning Updated by [email or web address]: Marni Ritchie on 08/26/19 5:[address] Patient Name: TOMASZ SIDDIQI Admission Status: ER Accout number: [id number] Admission Date: 08-12-2019 : 1950 Admission Diagnosis:ACUTE AND CHRONIC RESPIRATORY FAILURE WITH HYPOXIA Attending: JADE CALABRESE Current LOS: 14 Anticipated DC Date: Planned Disposition: Home with Home Health Primary Insurance: MEDICARE A & B Discharge Planning Comments: CM received notice for LTACH placement [facility] signed for [facility] even after CM told family they aren't accepting from outside facilities. Patient's called a friend that stated they could get him in there and for CM to call Cherie Matuteore Director Of Manufacturing Operations [phone] CM tried to reach [facility] to verify this information but no answer. CM went ahead and faxed referral. CM will continue to follow and assist as needed with discharge planning / needs. Manager Trading: Marni Ritchie DCP- Discharge Planning Updated by [id number]: Marni Ritchie on 08/13/19 5:[address] Patient Name: TOMASZ SIDDIQI Admission Status: ER Accout number: [id number] Admission Date: 08-12-2019 : 1950 Admission Diagnosis: Attending: JADE CALABRESE Current LOS: 1 Anticipated DC Date: Planned Disposition: Home with Home Health Primary Insurance: MEDICARE A & B Discharge Planning Comments: CM met with patient's Ariel at bedside after explaining CM role and obtaining verbal consent. Patient lives at home with his Ariel where he is independent with his care and plans to return there upon discharge. Patient feels this would be a safe discharge. CM discussed availability / needs of home health and medical equipment. Patient has home / portable 02 with [facility]. Patient has Home Health with [facility] and plans to resume when discharged. CORAZON signed. Patient denies any discharge needs at this time. Patient states he will have his family drive him home upon discharge. CM will continue to follow and assist as needed with discharge planning / needs. Manager Trading: Marni JUSTICE - Discharge Planning Initial Assessment Updated by [email or web address]: Marni Ritchie on 08/13/19 6:06 pm * Is the patient Alert and Oriented? Yes * PCP SHOSHANA * Pharmacy [facility] * Preadmission Environment Home with Family * ADLs Independent * Other Equipment HOME / PORTABLE 02, NEBULIZER * List name and contact numbers for known caregivers / representatives who currently or will assist patient after discharge: ARIEL SIDDIQI - SPOUSE - [phone] * Verbal permission to speak to the caregivers and representatives has been obtained from the patient. Yes * Community resources currently utilized Home Health * Please name any agencies selected above. [facility] * Additional services required to return to the preadmission environment? No * Can the patient safely return to the preadmission environment? Yes * Has this patient been hospitalized within the prior 30 days at any hospital? Yes Coverage Notice Reviewer: [id number] Sahara Ritchie Notice Issued Date-Time: 08/13/2019 17:00 Notice Type: Patient Choice Letter Notice Delivered To: Family Member Relationship to Patient: Spouse Visual Display Associate Name: ARIEL SIDDIQI Delivery Method: HAND - Hand Delivered Cristal Days: Prior Verbal Notification: Recipient Understood Notice: Yes Recipient Signature: Yes Med Rec Note Co-signed by Attending: Coverage Notice Comment: [facility] Reviewer: [id number] Sahara Ritchie Notice Issued Date-Time: 08/26/2019 18:24 Notice Type: Patient Choice Letter Notice Delivered To: Family Member Relationship to Patient: Spouse Visual Display Associate Name: Delivery Method: HAND - Hand Delivered Cristal Days: Prior Verbal Notification: Recipient Understood Notice: Yes Recipient Signature: Yes Med Rec Note Co-signed by Attending: Coverage Notice Comment: [facility] Last DP export: 08/26/19 5:03 p Patient Name: TOMASZ SIDDIQI Page [phone] at 1835 All edits/amendments must be made on the electronic document DICTATION DATE: 08/26/191833 ALCOHOL STILL OPERATOR: JAQUAN 08/26/191833 RPT#: [id number] DC DATE: STATUS: ADM IN [facility] [address] [place] [address] END OF REPORT
[2019-08-27] VITALS (25 sets, daily range): BP systolic 92–171; BP diastolic 62–98
[2019-08-27 06:40] LABS: BASOPHILS 0.7 % (0-2); EOSINOPHILS 2.5 % (0-7); HEMATOCRIT 32.4 % (42.0-54.0); HEMOGLOBIN 9.6 g/dL (13.5-17.5); LYMPHOCYTES 18.1 % (15-50); MCH 28.6 pg (26.0-34.0); MCHC 29.6 g/dL (31.0-37.0); MCV 96.4 fL (80.0-100.0); MEAN PLATELET VOLUME 9.2 fL (7.4-10.4); MONOCYTES 11.7 % (2-11); PLATELET COUNT 324 10x3/uL (130-400); RBC 3.36 10x6/uL (4.20-6.10); RDW 15.9 % (11.5-14.5); WBC 7.1 10x3/uL (4.8-10.8)
[2019-08-27 06:54] LABS: ALBUMIN 1.4 g/dL (3.4-5.0); ALKALINE PHOSPHATASE 81 U/L (30-120); ALT (SGPT) 16 U/L (10-68); BILIRUBIN - TOTAL 0.41 mg/dL (0.2-1.3); CALC OSMOLALITY 269 mosm/kg (275-300); CALCIUM 8.9 mg/dL (8.5-10.1); CARBON DIOXIDE 32.1 mmol/L (21.0-32.0); CHLORIDE - SERUM 100 mmol/L (98-107); CREATININE - SERUM 0.5 mg/dL (0.6-1.3); GLUCOSE 76 mg/dL (74-106); MAGNESIUM - SERUM 1.7 mg/dL (1.8-2.4); PHOSPHOROUS 3.1 mg/dL (2.5-4.9); POTASSIUM - SERUM 3.6 mmol/L (3.5-5.1); PROTEIN - SERUM 6.4 g/dL (6.4-8.2); SODIUM 136 mmol/L (136-145); UREA NITROGEN 9 mg/dL (7-18); eGFR NON AFRICAN AMERICAN > 90 mL/min (90-120)
--- NOTE | 2019-08-27 07:00 | NUR ---
PT REPORT RECEIVED FROM ROLLER HAND NURSE. NO ACUTE SIGNS OF DISTRESS NOTED. SHIFT ASSESSMENT COMPLETED. WILL CONTINUE TO MONITOR
--- NOTE | 2019-08-27 08:45 | NUR ---
DR BA AT BEDSIDE. UPDATE GIVEN. WANTS TO START PT ON CPAP TRIAL.
--- NOTE | 2019-08-27 09:00 | NUR ---
SEDATION WEANED OFF AND PT SWITCHED OVER TO CPAP TRIAL BY RT. WILL CONTINUE TO MONITOR
--- NOTE | 2019-08-27 10:36 | NUR ---
PLACED PT ON PS 05/07 @ 916
--- NOTE | 2019-08-27 10:50 | NUR ---
PT SWITCHED BACK OVER TO ASSIST CONTROL ON THE VENT. SEDATION NOT STARTED BACK DUE TO REQUIREMENTS FROM LTAC FACILITY. NEW ORDER FOR VERSED Q2HR.
--- NOTE | 2019-08-27 11:00 | NUR ---
DR CALABRESE AT BEDSIDE. UPDATE GIVEN. NO NEW ORDERS.
--- NOTE | 2019-08-27 13:53 | NUR ---
Nutrition consult for TF: Received consult from Dr. Taylor to resume TF via new PEG tube. Will order Pulmocare @ 30 ml/hr with gradual increase to goal rate of 60 ml/hr. Flush with 125 ml H2O q 4 hours. HOB > 30 degrees. Wt: 202# Labs reviewed RDN following.
--- NOTE | 2019-08-27 14:32 | NUR ---
PT IN AFIB RATE IN THE 140'S-150'S. PAGED DR PETERSON. STATED HE WOULD HAVE AYLA COME BY AND LOOK AT THE PATIENT.
--- NOTE | 2019-08-27 14:53 | NUR ---
AYLA WINN AT BEDSIDE. UPDATE GIVEN. NEW ORDER RECEIVED. WILL CONTINUE TO MONITOR
--- NOTE | 2019-08-27 15:37 | OP ---
PATIENT NAME: TOMASZ SIDDIQI JR MEDICAL RECORD: [id number] :[birth year] LOCATION:D.[facility] D.2301 ADMISSION DATE:08/12/19 SURGEON: FABRICIO ORTIZ MD DATE OF OPERATION: 08/26/2019 PREOPERATIVE DIAGNOSES: 1. Acute malnutrition. 2. Prolonged ventilatory failure requiring mechanical ventilation. POSTOPERATIVE DIAGNOSES: 1. Acute malnutrition. 2. Prolonged ventilatory failure requiring mechanical ventilation. 3. Stress gastritis involving the fundus of the stomach with erosions and a small ulcer. PROCEDURES: 1. Esophagogastroduodenoscopy with antral biopsies to rule out Helicobacter pylori. 2. Placement of 20-Panamanian percutaneous endoscopic gastrostomy tube. SURGEON: Fabricio Ortiz MD COUNSELOR DORMITORY: None. BLOOD LOSS: Minimal. ANESTHESIA: IV sedation with local. COMPLICATIONS: None. The risks, possible complications and alternatives to the procedure were explained to the patient and to the patient's . They elected to proceed. The discussion specifically included, but was not limited to, bleeding requiring emergency reoperation, infection, intestinal injury. OPERATIVE COURSE: The patient was seen in his ICU bed. Propofol was utilized and this was increased for sedation. The patient was positioned in the reverse Trendelenburg position. The abdomen was sterilely prepped and draped. A bite block was inserted. A gastroscope was inserted into the mouth. It was advanced easily into the hypopharynx. The esophagus was easily intubated as were the stomach and duodenum. Upon withdrawal, retroflexed and angulus views were obtained. Antral biopsies were obtained. I was able to transilluminate the abdomen. I was able to visualize an area that was going to be optimal for insertion of the gastrostomy tube. A local anesthetic was used to infiltrate the skin and subcutaneous tissues at the site. A transverse incision was accomplished. Through this incision, I advanced an Angiocath type catheter. It was advanced into the stomach on the first try. A guidewire was advanced through the Angiocath. This was grasped with an endoscopic snare. The guidewire was then withdrawn out through the mouth. It was advanced to a pull-type gastrostomy tube, which was then pulled into place. I then re-endoscoped the patient's esophagus and stomach. There had been no evidence of false passage or perforation. The gastroscope was then withdrawn. The G-tube was shortened. Hub and flange devices were attached. Then, the propofol was decreased. A sterile dressing was applied. OPERATIVE REPORT [id number] TOMASZ SIDDIQI J TRANSINT:[id number] Voice Confirmation ID: [id number] DOCUMENT ID: [id number] FABRICIO ORTIZ MD at 1537 CC: [id number] DICTATION DATE: 08/27/19 1309 SKI TECHNICIAN: 08/27/19 1326 ADM IN [facility] [id number] [place] [address]
--- NOTE | 2019-08-27 19:00 | NUR ---
REPORT REC'D, PT'S CARE ASSUMED. ASSESSMENT COMPLETED. SEE FLOWSHEETS FOR ALL FINDINGS. PT ON VENT WITHOUT SEDATION, RESTLESS, BREATHING FAST,ENCOUREGED TO GET CALM WITHOUT RESULTS. SUC AND MOUTH CARE DONE PER VAP. PT SHA WELL. AFIB CONT TO CM. PPP. RT AT BEDSIDE GIVEN TX. WILL CONT TO MONITOR.
--- NOTE | 2019-08-27 19:42 | MORECARE ---
CASE MANAGEMENT DISCHARGE SUMMARY PATIENT: TOMASZ SIDDIQI UNIT: [id number] ADM DATE: 08/12/19 AGE: 69 : 50 SEX: M ROOM/BED: D.2301 AUTHOR: ZHANE,DOC PHYSICIAN: REFERRING PHYSICIAN: JADE CALABRESE MD DATE OF SERVICE: 08/27/19 Discharge Plan Patient Name: TOMASZ SIDDIQI Facility: [facility]:[place] : 1950 Planned Disposition: Home with Home Health Anticipated Discharge Date: Discharge Date: Expected LOS: Initial Reviewer: [email or web address] Initial Review Date: 08/12/2019 Generated: 08/27/19 8:41 pm Comments DCP- Discharge Planning Updated by [email or web address]: Marni Ritchie on 08/27/19 6:[address] CM received a call from Elisa @ [facility] stating that they would not be able to accept patient as long as he is on drips. CM spoke to nursing and they could d/c drips and give meds IVP or PEG now that his peg has been placed. New MAR sent to [facility] and plans are if patient does well over night off drips they will accept him tomorrow after noon. D/C IMM signed 08/27/19 @ 1455. CM will continue to follow and assist as needed with discharge planning / needs. DCP- Discharge Planning Updated by [id number]: Marni Ritchie on 08/26/19 5:[address] Patient Name: TOMASZ SIDDIQI Admission Status: ER Accout number: [id number] Admission Date: 08-12-2019 : 1950 Admission Diagnosis:ACUTE AND CHRONIC RESPIRATORY FAILURE WITH HYPOXIA Attending: JADE CALABRESE Current LOS: 14 Anticipated DC Date: Planned Disposition: Home with Home Health Primary Insurance: MEDICARE A & B Discharge Planning Comments: CM received notice for LTACH placement [facility] signed for [facility] even after CM told family they aren't accepting from outside facilities. Patient's called a friend that stated they could get him in there and for CM to call Cherie Matuteore Slot Floor Person [phone] CM tried to reach Cherie to verify this information but no answer. CM went ahead and faxed referral. CM will continue to follow and assist as needed with discharge planning / needs. General House Worker: Marni Ritchie DCP- Discharge Planning Updated by [email or web address]: Marni Ritchie on 08/13/19 5:[address] Patient Name: TOMASZ SIDDIQI Admission Status: ER Accout number: [id number] Admission Date: 08-12-2019 : 1950 Admission Diagnosis: Attending: JADE CALABRESE Current LOS: 1 Anticipated DC Date: Planned Disposition: Home with Home Health Primary Insurance: MEDICARE A & B Discharge Planning Comments: CM met with patient's Penny at bedside after explaining CM role and obtaining verbal consent. Patient lives at home with his Penny where he is independent with his care and plans to return there upon discharge. Patient feels this would be a safe discharge. CM discussed availability / needs of home health and medical equipment. Patient has home / portable 02 with [facility]. Patient has Home Health with [facility] and plans to resume when discharged. CORAZON signed. Patient denies any discharge needs at this time. Patient states he will have his family drive him home upon discharge. CM will continue to follow and assist as needed with discharge planning / needs. General House Worker: Marni Ritchie DCPIA - Discharge Planning Initial Assessment Updated by [email or web address]: Marni Ritchie on 08/13/19 6:06 pm * Is the patient Alert and Oriented? Yes * PCP SHOSHANA * Pharmacy [facility] * Preadmission Environment Home with Family * ADLs Independent * Other Equipment HOME / PORTABLE 02, NEBULIZER * List name and contact numbers for known caregivers / representatives who currently or will assist patient after discharge: PENNY SIDDIQI - SPOUSE - [phone] * Verbal permission to speak to the caregivers and representatives has been obtained from the patient. Yes * Community resources currently utilized Home Health * Please name any agencies selected above. [facility] * Additional services required to return to the preadmission environment? No * Can the patient safely return to the preadmission environment? Yes * Has this patient been hospitalized within the prior 30 days at any hospital? Yes Coverage Notice Reviewer: [id number] - Marni Ritchie Notice Issued Date-Time: 08/13/2019 17:00 Notice Type: Patient Choice Letter Notice Delivered To: Family Member Relationship to Patient: Spouse Shredding Floor Equipment Operator Name: PENNY SIDDIQI Delivery Method: HAND - Hand Delivered Cristal Days: Prior Verbal Notification: Recipient Understood Notice: Yes Recipient Signature: Yes Med Rec Note Co-signed by Attending: Coverage Notice Comment: [facility] Reviewer: [id number] Sahara Ritchie Notice Issued Date-Time: 08/26/2019 18:24 Notice Type: Patient Choice Letter Notice Delivered To: Family Member Relationship to Patient: Spouse Shredding Floor Equipment Operator Name: Delivery Method: HAND - Hand Delivered Cristal Days: Prior Verbal Notification: Recipient Understood Notice: Yes Recipient Signature: Yes Med Rec Note Co-signed by Attending: Coverage Notice Comment: [facility] Last DP export: 08/26/19 5:35 p Patient Name: TOMASZ SIDDIQI Page [id number] at 1942 All edits/amendments must be made on the electronic document DICTATION DATE: 08/27/191940 JUNIOR BUYER: JAQUAN 08/27/191940 RPT#: [id number] DC DATE: STATUS: ADM IN [facility] [address] [place] [address] END OF REPORT
--- NOTE | 2019-08-27 20:45 | NUR ---
PT RESTLESS AND AGITATED ON VENT, BREATHING OVER THE VENT. UNABLE TO CALM. VERSED 2MG IVP GIVEN PER ORDER. CPOC.
--- NOTE | 2019-08-27 23:00 | NUR ---
REASSESSMENT COMPLETED. SEE FLOWSHEETS FOR ALL FINDINGS. PT RESTLESS ON VENT, VERSED 2MG IVP GIVEN PER ORDER. SUC AND MOUTH CARE DONE. REPOSITIONED FOR COMFORT. HOB UP. SIDE RAILS UP. CONT TO MONITOR.
[2019-08-28] VITALS (8 sets, daily range): BP systolic 110–157; BP diastolic 67–94
--- NOTE | 2019-08-28 03:00 | NUR ---
REASSESSMENT COMPLETED PER FLOWSHEETS.NO ACUTE CHANES IN PT'S STATUS NOTED. VSS. CONT TO MONITOR.
[2019-08-28 05:44] LABS: BASOPHILS 0.2 % (0-2); EOSINOPHILS 0.1 % (0-7); HEMOGLOBIN 9.3 g/dL (13.5-17.5); IMMATURE GRANULOCYTES 1.3 % (0-5); LYMPHOCYTES 7.7 % (15-50); MCH 28.6 pg (26.0-34.0); MCV 95.4 fL (80.0-100.0); MEAN PLATELET VOLUME 9.5 fL (7.4-10.4); NEUTROPHILS 80.7 % (40-80); RBC 3.25 10x6/uL (4.20-6.10); RDW 15.5 % (11.5-14.5)
[2019-08-28 05:53] LABS: PLATELET COUNT 416 10x3/uL (130-400); WBC 10.3 10x3/uL (4.8-10.8)
[2019-08-28 06:09] LABS: ALBUMIN 1.5 g/dL (3.4-5.0); ALKALINE PHOSPHATASE 129 U/L (30-120); ALT (SGPT) 24 U/L (10-68); BILIRUBIN - TOTAL 0.64 mg/dL (0.2-1.3); CALC OSMOLALITY 274 mosm/kg (275-300); CALCIUM 8.5 mg/dL (8.5-10.1); CARBON DIOXIDE 30.8 mmol/L (21.0-32.0); CHLORIDE - SERUM 100 mmol/L (98-107); CREATININE - SERUM 0.5 mg/dL (0.6-1.3); GLUCOSE 149 mg/dL (74-106); MAGNESIUM - SERUM 1.8 mg/dL (1.8-2.4); PHOSPHOROUS 1.9 mg/dL (2.5-4.9); POTASSIUM - SERUM 3.2 mmol/L (3.5-5.1); PROTEIN - SERUM 6.5 g/dL (6.4-8.2); SODIUM 136 mmol/L (136-145); UREA NITROGEN 12 mg/dL (7-18); eGFR NON AFRICAN AMERICAN > 90 mL/min (90-120)
--- NOTE | 2019-08-28 09:22 | NUR ---
Nutrition follow-up: Trach, PEG placed. Pulmocare started @ 30 ml/hr with goal rate of 60 ml/hr. Labs reviewed Wt: 194# PSV trials today RDN following.
--- NOTE | 2019-08-28 10:15 | NUR ---
DR ALLEN AT BEDSIDE. CHEST TUBE CHANGED TO [place] VALVE.
--- NOTE | 2019-08-28 10:34 | NUR ---
REPORT CALLED TO SEPTEMBER AT LTAC FACILITY. WILL PREPARE TO TRANSFER PT OVER.
--- NOTE | 2019-08-28 12:00 | NUR ---
EMS CREW IN ROOM. TRANSFERRING PT OVER TO EMS STRETCHER.
--- NOTE | 2019-08-28 12:17 | NUR ---
PT WHEELED OUT OF ICU ON EMS STRETCHER.
--- NOTE | 2019-08-28 21:02 | MORECARE ---
CASE MANAGEMENT DISCHARGE SUMMARY PATIENT: TOMASZ SIDDIQI UNIT: [id number] ADM DATE: 08/12/19 AGE: 69 : 50 SEX: M ROOM/BED: D.2301 AUTHOR: ZHANE,DOC PHYSICIAN: REFERRING PHYSICIAN: JADE CALABRESE MD DATE OF SERVICE: 08/28/19 Discharge Plan Patient Name: TOMASZ SIDDIQI Facility: [facility]:[place] : 1950 Planned Disposition: Home with Home Health Anticipated Discharge Date: Discharge Date: 08/28/2019 Expected LOS: Initial Reviewer: [email or web address] Initial Review Date: 08/12/2019 Generated: 08/28/19 10:01 pm Comments DCP- Discharge Planning Updated by [email or web address]: Marni Ritchie on 08/27/19 6:[address] CM received a call from Elisa @ [facility] stating that they would not be able to accept patient as long as he is on drips. CM spoke to nursing and they could d/c drips and give meds IVP or PEG now that his peg has been placed. New MAR sent to Elisa and plans are if patient does well over night off drips they will accept him tomorrow after noon. D/C IMM signed 08/27/19 @ 1455. CM will continue to follow and assist as needed with discharge planning / needs. DCP- Discharge Planning Updated by [email or web address]: Marni Ritchie on 08/26/19 5:[address] Patient Name: TOMASZ SIDDIQI Admission Status: ER Accout number: [id number] Admission Date: 08-12-2019 : 1950 Admission Diagnosis:ACUTE AND CHRONIC RESPIRATORY FAILURE WITH HYPOXIA Attending: JADE CALABRESE Current LOS: 14 Anticipated DC Date: Planned Disposition: Home with Home Health Primary Insurance: MEDICARE A & B Discharge Planning Comments: CM received notice for LTACH placement [facility] signed for [facility] even after CM told family they aren't accepting from outside facilities. Patient's called a friend that stated they could get him in there and for CM to call Cherie Matuteore Radiology Supervisor [phone] CM tried to reach Cherie to verify this information but no answer. CM went ahead and faxed referral. CM will continue to follow and assist as needed with discharge planning / needs. Steel Buffer: Marni Ritchie DCP- Discharge Planning Updated by [email or web address]: Marni Ritchie on 08/13/19 5:[address] Patient Name: TOMASZ SIDDIQI Admission Status: ER Accout number: [id number] Admission Date: 08-12-2019 : 1950 Admission Diagnosis: Attending: JADE CALABRESE Current LOS: 1 Anticipated DC Date: Planned Disposition: Home with Home Health Primary Insurance: MEDICARE A & B Discharge Planning Comments: CM met with patient's Penny at bedside after explaining CM role and obtaining verbal consent. Patient lives at home with his Penny where he is independent with his care and plans to return there upon discharge. Patient feels this would be a safe discharge. CM discussed availability / needs of home health and medical equipment. Patient has home / portable 02 with [facility]. Patient has Home Health with [facility] and plans to resume when discharged. [facility] signed. Patient denies any discharge needs at this time. Patient states he will have his family drive him home upon discharge. CM will continue to follow and assist as needed with discharge planning / needs. Steel Buffer: Marni Ritchie DCPIA - Discharge Planning Initial Assessment Updated by [email or web address]: Marni Ritchie on 08/13/19 6:06 pm * Is the patient Alert and Oriented? Yes * PCP SHOSHANA * Pharmacy [facility] -[facility] * Preadmission Environment Home with Family * ADLs Independent * Other Equipment HOME / PORTABLE 02, NEBULIZER * List name and contact numbers for known caregivers / representatives who currently or will assist patient after discharge: PENNY SIDDIQI - SPOUSE - [phone] * Verbal permission to speak to the caregivers and representatives has been obtained from the patient. Yes * Community resources currently utilized Home Health * Please name any agencies selected above. [facility] * Additional services required to return to the preadmission environment? No * Can the patient safely return to the preadmission environment? Yes * Has this patient been hospitalized within the prior 30 days at any hospital? Yes Coverage Notice Reviewer: [id number] - Marni Ritchie Notice Issued Date-Time: 08/13/2019 17:00 Notice Type: Patient Choice Letter Notice Delivered To: Family Member Relationship to Patient: Spouse Armed Security Officer Name: PENNY SIDDIQI Delivery Method: HAND - Hand Delivered Cristal Days: Prior Verbal Notification: Recipient Understood Notice: Yes Recipient Signature: Yes Med Rec Note Co-signed by Attending: Coverage Notice Comment: OBI RGEEN Reviewer: [email or web address] Sahara Ritchie Notice Issued Date-Time: 08/26/2019 18:24 Notice Type: Patient Choice Letter Notice Delivered To: Family Member Relationship to Patient: Spouse Armed Security Officer Name: Delivery Method: HAND - Hand Delivered Cristal Days: Prior Verbal Notification: Recipient Understood Notice: Yes Recipient Signature: Yes Med Rec Note Co-signed by Attending: Coverage Notice Comment: [facility] - [facility] Last DP export: 08/27/19 6:42 p Patient Name: TOMASZ SIDDIQI Page [id number] at 210 All edits/amendments must be made on the electronic document DICTATION DATE: 08/28/192100 CLOTH DESIZING RANGE OPERATOR CHIEF: JAQUAN 08/28/192100 RPT#: [id number] DC DATE:08/28/19 STATUS: DIS IN [facility] [address] [place] [address] END OF REPORT
== END 2019-08-28 12:40 | DRG 4 ==
LOC: D.ER 09:19 → D.ICU 11:57
PROVIDERS: Emergency Medicine; Family Medicine; Internal Medicine Cardiovascular Disease; Internal Medicine Pulmonary Disease; Surgery; Thoracic Surgery (Cardiothoracic Vascular Surgery); ADMIT Internal Medicine Nephrology; ATTEND Internal Medicine Nephrology
PROC: 5A1955Z Respiratory Ventilation, Greater than 96 Consecutive Hours (ICD-10-PCS; principal; 2019-08-12)
PROC: 0BH17EZ Insertion of Endotracheal Airway into Trachea, Via Natural or Artificial Opening (ICD-10-PCS; 2019-08-12)
PROC: 05HN33Z Insertion of Infusion Device into Left Internal Jugular Vein, Percutaneous Approach (ICD-10-PCS; 2019-08-14)
PROC: 05HY33Z Insertion of Infusion Device into Upper Vein, Percutaneous Approach (ICD-10-PCS; 2019-08-18)
PROC: 0B968ZZ Drainage of Right Lower Lobe Bronchus, Via Natural or Artificial Opening Endoscopic (ICD-10-PCS; 2019-08-20)
PROC: 0B958ZZ Drainage of Right Middle Lobe Bronchus, Via Natural or Artificial Opening Endoscopic (ICD-10-PCS; 2019-08-20)
PROC: 0BCB8ZZ Extirpation of Matter from Left Lower Lobe Bronchus, Via Natural or Artificial Opening Endoscopic (ICD-10-PCS; 2019-08-20)
PROC: 0B110F4 Bypass Trachea to Cutaneous with Tracheostomy Device, Open Approach (ICD-10-PCS; 2019-08-24)
PROC: 0DH63UZ Insertion of Feeding Device into Stomach, Percutaneous Approach (ICD-10-PCS; 2019-08-26)
DX: J96.21 Acute and chronic respiratory failure with hypoxia (principal); I26.99 Other pulmonary embolism without acute cor pulmonale; J93.0 Spontaneous tension pneumothorax; J18.9 Pneumonia, unspecified organism; E87.2 Acidosis; E44.0 Moderate protein-calorie malnutrition; N39.0 Urinary tract infection, site not specified; Z16.21 Resistance to vancomycin; E78.00 Pure hypercholesterolemia, unspecified; J43.9 Emphysema, unspecified; I95.9 Hypotension, unspecified; J30.9 Allergic rhinitis, unspecified; G47.33 Obstructive sleep apnea (adult) (pediatric); K21.9 Gastro-esophageal reflux disease without esophagitis; I25.10 Atherosclerotic heart disease of native coronary artery without angina pectoris; M19.90 Unspecified osteoarthritis, unspecified site; Z72.89 Other problems related to lifestyle; R53.81 Other malaise; D64.9 Anemia, unspecified; E78.5 Hyperlipidemia, unspecified; J84.112 Idiopathic pulmonary fibrosis; I10 Essential (primary) hypertension